=== PATIENT | male | born 1945 | race Two or more races ===

== ENCOUNTER 2016-10-01 16:35 | Observation (INO) | payer MEDICARE, OTHER ==
[~2016-10-01] VITALS: Ht 175.3 cm; Wt 72.6 kg
[~2016-10-01 16:35] MED LIST: ALBUAER3 IN; ASP81EC PO; CAR3125T PO; FLUT1SPR5; FURO40TA PO; INSLISPI SC; Insulin Detemir SC; LACT10SO3 PO; LEVO500T21 PO; MUPI2OIN10 TOP; POTA20TA53 PO
[2016-10-01 18:29] LABS: Basophils # (auto) 0.1 uL; Basophils % (auto) 0.5 % (0.0-2.0); CONDITION Y; DEFINITIVE SEE PRINTOUT; Eosinophils # (auto) 0.1 uL; Eosinophils % (auto) 0.6 % (0.0-7.0); Hematocrit 24.7 % (41.0-53.0); Hemoglobin 8.4 g/dL (13.5-17.5); Lymphocytes # (auto) 0.9 uL; Lymphocytes % (auto) 6.5 % (10.0-50.0); Mean Corpuscular Hemoglobin 29.2 pg (28.0-32.0); Mean Corpuscular Hgb Conc. 33.9 g/dL (32.0-36.0); Mean Corpuscular Volume 86.2 fL (80.0-100.0); Mean Platelet Volume 7.4 fL (7.4-10.4); Monocytes # (auto) 0.5 uL; Monocytes % (auto) 3.9 % (0.0-12.0); Neutrophils # (auto) 12.4 uL; Neutrophils % (auto) 88.5 % (37.0-80.0); Platelet Count (auto) 320 10^3/uL (140-450); Red Cell Distribution Width 15.5 % (11.6-16.0)
[2016-10-01 18:37] LABS: INR 1.13 (0.9-1.15); Partial Thromboplastin Time 33.1 sec (22.64-33.71); Prothrombin Time 12.3 sec (9.37-12.3)
[2016-10-01 18:43] LABS: B-Type Natriuretic Peptide 1743.19 pg/mL (0-100)
[2016-10-01] MEDS ORDERED: cefTRIAXone 1GM/50ML D5W 50 ML IV ONE (19:00)
[2016-10-01 20:28] LABS: Albumin 1.6 g/dL (3.4-5.0); Alkaline Phosphatase 118 U/L (45-117); Anion Gap 6 (5-15); Aspartate Aminotransferase 8 U/L (15-37); BUN/Creatinine Ratio 26.9; Bilirubin, Total 0.2 mg/dL (0.2-1.0); Blood Urea Nitrogen 52 mg/dL (7-18); Calcium 7.5 mg/dL (8.5-10.1); Carbon Dioxide 27 mmol/L (21-32); Chloride 107 mmol/L (98-107); GFR African American 44 mL/min; GFR Non-African American 37 mL/min; Glucose 124 mg/dL (74-106); Potassium 5.2 mmol/L (3.5-5.1); Sodium 140 mmol/L (136-145); Total Protein 5.8 g/dL (6.4-8.2)
[2016-10-01] MEDS ORDERED: LEVOFLOXACIN 250 MG TAB PO ONE (21:45)
[2016-10-01 21:55] VITALS: BP 156/88
== END 2016-10-01 21:56 | disposition left against medical advice (07) | DRG 291 ==
LOC: EDBD 16:35 → EDUNIT# 16:35 → ER 16:41 → OVERFLOW 17:53 → ER 21:56
PROVIDERS: ADMIT Family Medicine; ATTEND Family Medicine
DX: I11.0 Hypertensive heart disease with heart failure (principal); J18.9 Pneumonia, unspecified organism; I50.43 Acute on chronic combined systolic (congestive) and diastolic (congestive) heart failure; D64.9 Anemia, unspecified; J45.909 Unspecified asthma, uncomplicated; I25.10 Atherosclerotic heart disease of native coronary artery without angina pectoris; E11.9 Type 2 diabetes mellitus without complications; I25.2 Old myocardial infarction; Z86.73 Personal history of transient ischemic attack (TIA), and cerebral infarction without residual deficits; Z82.49 Family history of ischemic heart disease and other diseases of the circulatory system
CPT/HCPCS: 36415; 71020; 80053; 83605; 83735; 83880; 84443; 84484; 85025; 85610; 85730; 87040; 93005; 99285; G0378

== ENCOUNTER 2016-10-26 11:37 | Inpatient (IN) | payer MEDICARE ==
[~2016-10-26] VITALS: Ht 177.8 cm; Wt 67.5 kg
[~2016-10-26 11:37] MED LIST changes: -LEVO500T21 PO; -MUPI2OIN10 TOP
[2016-10-26 12:25] LABS: Basophils # (auto) 0 uL; Basophils % (auto) 0.3 % (0.0-2.0); CONDITION Y; Eosinophils # (auto) 0.1 uL; Eosinophils % (auto) 1.8 % (0.0-7.0); Hemoglobin 8.9 g/dL (13.5-17.5); Lymphocytes # (auto) 1.2 uL; Lymphocytes % (auto) 20.6 % (10.0-50.0); Mean Corpuscular Hgb Conc. 32.9 g/dL (32.0-36.0); Mean Corpuscular Volume 88.1 fL (80.0-100.0); Mean Platelet Volume 8.2 fL (7.4-10.4); Monocytes # (auto) 0.3 uL; Monocytes % (auto) 5.6 % (0.0-12.0); Neutrophils # (auto) 4.1 uL; Neutrophils % (auto) 71.7 % (37.0-80.0); Platelet Count (auto) 163 10^3/uL (140-450); Red Cell Distribution Width 16.4 % (11.6-16.0); White Blood Cell 5.7 10^3/uL (4.4-10.8)
[2016-10-26 12:49] LABS: Albumin 2.1 g/dL (3.4-5.0); BUN/Creatinine Ratio 30.5; Bilirubin, Total 0.3 mg/dL (0.2-1.0); Calcium 7.9 mg/dL (8.5-10.1); Magnesium 2.9 mg/dL (1.6-2.6); Total Protein 6.4 g/dL (6.4-8.2)
[2016-10-26 12:56] LABS: Potassium 5.6 mmol/L (3.5-5.1)
[2016-10-26] MEDS ORDERED: cefTRIAXone 1GM/50ML D5W 50 ML IV ONE (13:00)
[2016-10-26 13:07] LABS: B-Type Natriuretic Peptide 3026.51 pg/mL (0-100)
[2016-10-26 13:33] LABS: Temperature: 22.7 C (20.0-25.0)
[2016-10-26] MEDS ORDERED: LACTULOSE 20Gm/30ML SOLN PO PRN (14:00)
[2016-10-26] MEDS ORDERED: DEXTROSE (50%) 50ML SYRG IV PRN (14:00)
[2016-10-26 14:06] LABS: INR 1.27 (0.9-1.15); Partial Thromboplastin Time 33.5 sec (22.64-33.71); Prothrombin Time 13.9 sec (9.37-12.3)
[2016-10-26] MEDS ORDERED: ONDANSETRON HCL 4 MG/2 ML VIAL IV PRN (14:15)
[2016-10-26] MEDS ORDERED: cloNIDine HCL 0.1 MG TAB PO PRN (14:15)
[2016-10-26] MEDS ORDERED: NITROGLYCERIN 0.4 MG SL TAB SL PRN (14:15)
[2016-10-26] MEDS ORDERED: MORPHINE SULF INJ 2 MG/ML SYRINGE 1ML IV PRN (14:15)
[2016-10-26] MEDS ORDERED: DOCUSATE SOD 100 MG CAP PO PRN (14:15)
[2016-10-26] MEDS ORDERED: CALCIUM GLUC 4.65meq/50ml D5AE 50 ML IV ONE (14:30)
[2016-10-26] MEDS ORDERED: DEXTROSE (50%) 50ML SYRG IV ONE (14:30)
[2016-10-26] MEDS ORDERED: SODIUM BICARBONATE 8.4 % INJ 50ML VIAL IV ONE (14:30)
[2016-10-26] MEDS ORDERED: InsuLIN REG 1unit/0.01ml Soln (100units/ml) IV ONE (14:30)
[2016-10-26] MEDS ORDERED: SODIUM POLYSTYRENE SULF 15GM/60ML SUSP PO ONE (14:30)
[2016-10-26] MEDS ORDERED: SODIUM BICARBONATE 8.4% INJ 50ML SYRINGE ONE (14:32)
[2016-10-26] MEDS: hydrALAZINE HCL 25 MG TAB PO SCH ×2 (14:48→22:13)
[2016-10-26] MEDS: METOPROLOL TARTRATE 25 MG TAB PO SCH ×2 (14:49→22:14)
[2016-10-26] MEDS: ISOSORBIDE MONONITRATE 20 MG TAB PO SCH ×2 (14:49→22:13)
[2016-10-26] MEDS: InsuLIN REG 1unit/0.01ml Soln (100units/ml) SC SCH ×3 (17:00→22:25)
[2016-10-26] MEDS: ACCU-CHEK COMFORT CURVE STRIP VI SCH ×2 (17:05→22:17)
[2016-10-26] MEDS ORDERED: BOOST PLUS 8 ounce PO SCH (18:00)
[2016-10-26] MEDS: CALCIUM W/VIT D (600MG/400IU) TAB PO SCH (18:19)
[2016-10-26] MEDS: FERROUS SULFATE 325 MG TAB PO SCH (18:19)
[2016-10-26] MEDS: Boost Glucose Control 8 Ounces PO SCH ×2 (18:52→22:00)
[2016-10-26] MEDS: ACETAMINOPHEN 325 MG TAB PO PRN (18:54)
[2016-10-26] MEDS: ALBUTEROL SULF 2.5 MG/0.5ML(0.5%) NEB SOLN NEB SCH (19:21)
[2016-10-26] MEDS: IPRATROPIUM BROM 0.5 MG/2.5ML INH SOL NEB SCH (19:21)
[2016-10-26 19:28] LABS: BUN/Creatinine Ratio 28.6; Calcium 7.5 mg/dL (8.5-10.1); Potassium 5.2 mmol/L (3.5-5.1)
[2016-10-26 20:27] VITALS: BP 172/74
[2016-10-26] MEDS: MORPHINE SULF INJ 2 MG/ML SYRINGE 1ML IV PRN ×2 (21:06→23:31)
[2016-10-26] MEDS: SODIUM CHLOR 0.9% PF (SALINE LOCK) 10ML VIAL IV SCH (22:07)
[2016-10-26] MEDS: ATORVASTATIN 20 MG TAB PO SCH (22:13)
[2016-10-26] MEDS: FAMOTIDINE 20 MG TAB PO SCH (22:14)
[2016-10-26] MEDS: ASCORBIC ACID 500 MG TAB PO SCH (22:14)
[2016-10-26 23:00] VITALS: BP 136/75
[2016-10-26] MEDS: TEMAZEPAM 15 MG CAP PO PRN (23:31)
[2016-10-27 05:00] VITALS: BP 133/70
[2016-10-27] MEDS: ALBUTEROL SULF 2.5 MG/0.5ML(0.5%) NEB SOLN NEB SCH ×5 (05:58→18:22)
[2016-10-27] MEDS: IPRATROPIUM BROM 0.5 MG/2.5ML INH SOL NEB SCH ×5 (05:58→18:22)
[2016-10-27] MEDS: Boost Glucose Control 8 Ounces PO SCH ×4 (06:13→22:00)
[2016-10-27] MEDS: SODIUM CHLOR 0.9% PF (SALINE LOCK) 10ML VIAL IV SCH ×3 (06:13→22:00)
[2016-10-27 06:24] LABS: Basophils # (auto) 0 uL; Basophils % (auto) 0.9 % (0.0-2.0); CONDITION Y; DEFINITIVE SEE PRINTOUT; Eosinophils # (auto) 0.1 uL; Eosinophils % (auto) 1.6 % (0.0-7.0); Hematocrit 25.5 % (41.0-53.0); Hemoglobin 8.4 g/dL (13.5-17.5); Lymphocytes # (auto) 1.3 uL; Lymphocytes % (auto) 24.5 % (10.0-50.0); Mean Corpuscular Hemoglobin 29.4 pg (28.0-32.0); Mean Platelet Volume 8.6 fL (7.4-10.4); Monocytes # (auto) 0.3 uL; Monocytes % (auto) 5.8 % (0.0-12.0); Neutrophils # (auto) 3.5 uL; Neutrophils % (auto) 67.2 % (37.0-80.0); Platelet Count (auto) 159 10^3/uL (140-450); Red Cell Distribution Width 16.2 % (11.6-16.0); White Blood Cell 5.2 10^3/uL (4.4-10.8)
[2016-10-27 06:41] LABS: Albumin 2.1 g/dL (3.4-5.0); Bilirubin, Total 0.4 mg/dL (0.2-1.0); Calcium 7.9 mg/dL (8.5-10.1); Potassium 5.2 mmol/L (3.5-5.1); Total Protein 6.2 g/dL (6.4-8.2)
[2016-10-27] MEDS: InsuLIN REG 1unit/0.01ml Soln (100units/ml) SC SCH ×4 (06:58→23:43)
[2016-10-27] MEDS: ACCU-CHEK COMFORT CURVE STRIP VI SCH ×4 (06:59→22:00)
[2016-10-27] MEDS: CALCIUM W/VIT D (600MG/400IU) TAB PO SCH ×2 (08:05→17:48)
[2016-10-27] MEDS: FERROUS SULFATE 325 MG TAB PO SCH ×2 (08:05→17:48)
[2016-10-27 09:00] VITALS: BP 140/77
[2016-10-27] MEDS: cefTRIAXone 1GM/50ML D5W 50 ML IV SCH (09:46)
[2016-10-27] MEDS: ISOSORBIDE MONONITRATE 20 MG TAB PO SCH ×3 (09:47→23:30)
[2016-10-27] MEDS: ZINC SULFATE 220 MG CAP PO SCH ×2 (09:48→10:00)
[2016-10-27] MEDS: hydrALAZINE HCL 25 MG TAB PO SCH ×3 (09:48→23:29)
[2016-10-27] MEDS: METOPROLOL TARTRATE 25 MG TAB PO SCH ×2 (09:49→23:32)
[2016-10-27] MEDS: ASPirin-EC 81 mg tab PO SCH ×2 (09:50→10:00)
[2016-10-27] MEDS: FAMOTIDINE 20 MG TAB PO SCH ×3 (09:51→23:32)
[2016-10-27] MEDS: MULTIPLE VITAMIN TAB PO SCH ×2 (09:51→10:00)
[2016-10-27] MEDS: ASCORBIC ACID 500 MG TAB PO SCH ×3 (09:52→23:28)
[2016-10-27] MEDS: SODIUM POLYSTYRENE SULF 15GM/60ML SUSP PO ONE ×2 (09:59→11:41)
[2016-10-27 13:00] VITALS: BP 131/79
[2016-10-27 17:00] VITALS: BP 134/80
[2016-10-27 20:00] VITALS: BP 121/69
[2016-10-27 22:00] VITALS: BP 121/69
[2016-10-27] MEDS: ATORVASTATIN 20 MG TAB PO SCH (23:32)
[2016-10-28] MEDS: TEMAZEPAM 15 MG CAP PO PRN (00:20)
[2016-10-28] MEDS: ALBUTEROL SULF 2.5 MG/0.5ML(0.5%) NEB SOLN NEB SCH ×4 (00:43→19:17)
[2016-10-28] MEDS: IPRATROPIUM BROM 0.5 MG/2.5ML INH SOL NEB SCH ×4 (00:44→19:17)
[2016-10-28] MEDS: HYDROcodone-ACET 5/325MG TAB PO PRN (01:40)
[2016-10-28 04:43] VITALS: BP 121/65
[2016-10-28] MEDS: Boost Glucose Control 8 Ounces PO SCH ×4 (06:00→22:00)
[2016-10-28] MEDS: SODIUM CHLOR 0.9% PF (SALINE LOCK) 10ML VIAL IV SCH ×3 (06:00→22:00)
[2016-10-28] MEDS: ACCU-CHEK COMFORT CURVE STRIP VI SCH ×4 (06:09→22:00)
[2016-10-28] MEDS: InsuLIN REG 1unit/0.01ml Soln (100units/ml) SC SCH ×5 (06:14→22:00)
[2016-10-28 08:00] VITALS: BP 125/68
[2016-10-28 10:52] LABS: Basophils # (auto) 0 uL; Basophils % (auto) 0.4 % (0.0-2.0); CONDITION Y; DEFINITIVE SEE PRINTOUT; Eosinophils # (auto) 0.1 uL; Eosinophils % (auto) 2.2 % (0.0-7.0); Hematocrit 23.4 % (41.0-53.0); Hemoglobin 7.7 g/dL (13.5-17.5); Lymphocytes # (auto) 0.9 uL; Lymphocytes % (auto) 22.9 % (10.0-50.0); Mean Corpuscular Hemoglobin 29.3 pg (28.0-32.0); Mean Corpuscular Hgb Conc. 32.8 g/dL (32.0-36.0); Mean Corpuscular Volume 89.5 fL (80.0-100.0); Mean Platelet Volume 8.1 fL (7.4-10.4); Monocytes # (auto) 0.3 uL; Monocytes % (auto) 7.6 % (0.0-12.0); Neutrophils # (auto) 2.6 uL; Neutrophils % (auto) 66.9 % (37.0-80.0); Platelet Count (auto) 133 10^3/uL (140-450); Red Cell Distribution Width 16.7 % (11.6-16.0); White Blood Cell 3.9 10^3/uL (4.4-10.8)
[2016-10-28] MEDS: FAMOTIDINE 20 MG TAB PO SCH ×3 (10:53→22:45)
[2016-10-28] MEDS: ZINC SULFATE 220 MG CAP PO SCH (10:53)
[2016-10-28] MEDS: ASPirin-EC 81 mg tab PO SCH ×2 (10:53→11:06)
[2016-10-28] MEDS: MULTIPLE VITAMIN TAB PO SCH (10:53)
[2016-10-28] MEDS: ASCORBIC ACID 500 MG TAB PO SCH ×3 (10:53→22:45)
[2016-10-28] MEDS: ISOSORBIDE MONONITRATE 20 MG TAB PO SCH ×2 (10:54→22:00)
[2016-10-28] MEDS: METOPROLOL TARTRATE 25 MG TAB PO SCH ×2 (10:54→22:00)
[2016-10-28] MEDS: FERROUS SULFATE 325 MG TAB PO SCH ×2 (10:55→18:11)
[2016-10-28] MEDS: CALCIUM W/VIT D (600MG/400IU) TAB PO SCH ×2 (10:55→18:12)
[2016-10-28 11:06] LABS: BUN/Creatinine Ratio 31.6; Bilirubin, Total 0.2 mg/dL (0.2-1.0); Calcium 7.8 mg/dL (8.5-10.1); Potassium 4.4 mmol/L (3.5-5.1); Total Protein 5.8 g/dL (6.4-8.2)
[2016-10-28] MEDS: hydrALAZINE HCL 25 MG TAB PO SCH ×2 (11:07→22:00)
[2016-10-28 12:01] VITALS: BP 131/69
[2016-10-28] MEDS: cefTRIAXone 1GM/50ML D5W 50 ML IV SCH (12:07)
[2016-10-28 16:52] VITALS: BP 121/62
[2016-10-28] MEDS: FUROSEMIDE 100 MG/10ML VIAL IV SCH (18:13)
[2016-10-28 21:54] LABS: Urine Bilirubin Negative (Negative); Urine Blood 2+ /uL (Negative); Urine Color Yellow (Yellow); Urine Glucose Normal (Normal); Urine Ketone Negative (Negative); Urine Mucus FEW (None Seen); Urine Nitrite Negative (Negative); Urine RBC 239 /hpf (0 - 3); Urine Urobilinogen Normal (Negative); Urine WBC Clumps PRESENT /hpf (None Seen); Urine pH 5.5 (5.0-8.0)
[2016-10-28 22:00] VITALS: BP 109/57
[2016-10-28] MEDS: ATORVASTATIN 20 MG TAB PO SCH ×2 (22:00→22:45)
[2016-10-29] VITALS (7 sets, daily range): BP systolic 116–132; BP diastolic 58–69
[2016-10-29] MEDS: IPRATROPIUM BROM 0.5 MG/2.5ML INH SOL NEB SCH ×4 (00:36→18:06)
[2016-10-29] MEDS: ALBUTEROL SULF 2.5 MG/0.5ML(0.5%) NEB SOLN NEB SCH ×2 (00:36→06:35)
[2016-10-29] MEDS: FUROSEMIDE 100 MG/10ML VIAL IV SCH ×2 (06:16→18:00)
[2016-10-29] MEDS: SODIUM CHLOR 0.9% PF (SALINE LOCK) 10ML VIAL IV SCH ×3 (06:16→21:55)
[2016-10-29] MEDS: Boost Glucose Control 8 Ounces PO SCH ×4 (06:16→21:55)
[2016-10-29] MEDS: ACCU-CHEK COMFORT CURVE STRIP VI SCH ×4 (06:44→21:55)
[2016-10-29] MEDS: InsuLIN REG 1unit/0.01ml Soln (100units/ml) SC SCH ×4 (06:44→21:56)
[2016-10-29 07:11] LABS: BUN/Creatinine Ratio 30.3; Calcium 7.8 mg/dL (8.5-10.1); Potassium 4.5 mmol/L (3.5-5.1)
[2016-10-29] MEDS: CALCIUM W/VIT D (600MG/400IU) TAB PO SCH ×2 (08:00→17:58)
[2016-10-29] MEDS: FERROUS SULFATE 325 MG TAB PO SCH ×2 (08:00→17:59)
[2016-10-29] MEDS: MORPHINE SULF INJ 2 MG/ML SYRINGE 1ML IV PRN (08:00)
[2016-10-29] MEDS: ASCORBIC ACID 500 MG TAB PO SCH ×2 (09:51→21:59)
[2016-10-29] MEDS: ISOSORBIDE MONONITRATE 20 MG TAB PO SCH ×2 (09:51→21:58)
[2016-10-29] MEDS: ASPirin-EC 81 mg tab PO SCH (09:51)
[2016-10-29] MEDS: METOPROLOL TARTRATE 25 MG TAB PO SCH (09:52)
[2016-10-29] MEDS: ZINC SULFATE 220 MG CAP PO SCH (09:52)
[2016-10-29] MEDS: FAMOTIDINE 20 MG TAB PO SCH ×2 (09:52→21:59)
[2016-10-29] MEDS: hydrALAZINE HCL 25 MG TAB PO SCH (09:53)
[2016-10-29] MEDS: MULTIPLE VITAMIN TAB PO SCH (09:53)
[2016-10-29] MEDS: HYDROcodone-ACET 5/325MG TAB PO PRN ×2 (09:53→17:59)
[2016-10-29] MEDS: CARVEDILOL 3.125 MG TAB PO SCH ×2 (11:25→21:59)
[2016-10-29] MEDS: ATORVASTATIN 20 MG TAB PO SCH (21:59)
[2016-10-30] MEDS: IPRATROPIUM BROM 0.5 MG/2.5ML INH SOL NEB SCH ×4 (00:39→19:39)
[2016-10-30 05:00] VITALS: BP 125/73
[2016-10-30] MEDS: FUROSEMIDE 100 MG/10ML VIAL IV SCH ×2 (05:36→17:40)
[2016-10-30] MEDS: SODIUM CHLOR 0.9% PF (SALINE LOCK) 10ML VIAL IV SCH ×3 (05:36→21:37)
[2016-10-30] MEDS: Boost Glucose Control 8 Ounces PO SCH ×4 (05:37→21:37)
[2016-10-30] MEDS: HYDROcodone-ACET 5/325MG TAB PO PRN ×2 (05:42→10:48)
[2016-10-30] MEDS: ACCU-CHEK COMFORT CURVE STRIP VI SCH ×4 (06:35→21:48)
[2016-10-30] MEDS: InsuLIN REG 1unit/0.01ml Soln (100units/ml) SC SCH ×4 (06:36→21:48)
[2016-10-30 06:47] LABS: Calcium 7.6 mg/dL (8.5-10.1); Potassium 4.4 mmol/L (3.5-5.1)
[2016-10-30 06:50] LABS: BUN/Creatinine Ratio 29.8
[2016-10-30 08:00] VITALS: BP 122/67
[2016-10-30] MEDS: FERROUS SULFATE 325 MG TAB PO SCH ×2 (08:43→17:40)
[2016-10-30] MEDS: CALCIUM W/VIT D (600MG/400IU) TAB PO SCH ×2 (08:43→17:40)
[2016-10-30] MEDS: MORPHINE SULF INJ 2 MG/ML SYRINGE 1ML IV PRN (08:44)
[2016-10-30 09:00] VITALS: BP 122/67
[2016-10-30] MEDS: MULTIPLE VITAMIN TAB PO SCH ×2 (10:00→10:48)
[2016-10-30] MEDS: ISOSORBIDE MONONITRATE 20 MG TAB PO SCH ×2 (10:48→21:48)
[2016-10-30] MEDS: ASPirin-EC 81 mg tab PO SCH (10:49)
[2016-10-30] MEDS: FAMOTIDINE 20 MG TAB PO SCH ×2 (10:49→21:48)
[2016-10-30] MEDS: ZINC SULFATE 220 MG CAP PO SCH (10:49)
[2016-10-30] MEDS: ASCORBIC ACID 500 MG TAB PO SCH ×2 (10:49→21:48)
[2016-10-30] MEDS: CARVEDILOL 3.125 MG TAB PO SCH ×2 (10:50→21:47)
[2016-10-30 13:00] VITALS: BP 109/60
[2016-10-30] MEDS: ACETAMINOPHEN 325 MG TAB PO PRN (13:50)
[2016-10-30 17:00] VITALS: BP 102/57
[2016-10-30] MEDS: METOLAZONE 5 MG TAB PO SCH (17:39)
[2016-10-30] MEDS: ATORVASTATIN 20 MG TAB PO SCH (21:48)
[2016-10-30 22:00] VITALS: BP 119/66
[2016-10-31] MEDS: IPRATROPIUM BROM 0.5 MG/2.5ML INH SOL NEB SCH ×4 (01:02→19:18)
[2016-10-31 05:00] VITALS: BP 116/77
[2016-10-31] MEDS: SODIUM CHLOR 0.9% PF (SALINE LOCK) 10ML VIAL IV SCH ×2 (05:42→14:12)
[2016-10-31] MEDS: FUROSEMIDE 100 MG/10ML VIAL IV SCH ×2 (05:42→18:03)
[2016-10-31] MEDS: Boost Glucose Control 8 Ounces PO SCH ×3 (06:00→18:03)
[2016-10-31] MEDS: ACCU-CHEK COMFORT CURVE STRIP VI SCH ×4 (06:19→22:00)
[2016-10-31] MEDS: InsuLIN REG 1unit/0.01ml Soln (100units/ml) SC SCH ×4 (06:20→22:00)
[2016-10-31 07:23] LABS: Albumin 2.2 g/dL (3.4-5.0); Calcium 7.8 mg/dL (8.5-10.1); Potassium 4.3 mmol/L (3.5-5.1)
[2016-10-31 07:25] LABS: BUN/Creatinine Ratio 30.8
[2016-10-31 07:27] LABS: Basophils # (auto) 0 uL; Basophils % (auto) 0.5 % (0.0-2.0); CONDITION Y; DEFINITIVE SEE PRINTOUT; Eosinophils # (auto) 0.2 uL; Eosinophils % (auto) 4.4 % (0.0-7.0); Hematocrit 25.2 % (41.0-53.0); Hemoglobin 8.4 g/dL (13.5-17.5); Lymphocytes % (auto) 24.8 % (10.0-50.0); Mean Corpuscular Hemoglobin 29.4 pg (28.0-32.0); Mean Corpuscular Hgb Conc. 33.2 g/dL (32.0-36.0); Mean Corpuscular Volume 88.5 fL (80.0-100.0); Mean Platelet Volume 8.9 fL (7.4-10.4); Monocytes # (auto) 0.2 uL; Neutrophils # (auto) 2.6 uL; Neutrophils % (auto) 64.3 % (37.0-80.0); Platelet Count (auto) 137 10^3/uL (140-450); Red Cell Distribution Width 16.9 % (11.6-16.0); White Blood Cell 4.1 10^3/uL (4.4-10.8)
[2016-10-31 07:30] LABS: Bilirubin, Total 0.3 mg/dL (0.2-1.0); Total Protein 6.4 g/dL (6.4-8.2)
[2016-10-31 08:00] VITALS: BP 134/79
[2016-10-31] MEDS: CALCIUM W/VIT D (600MG/400IU) TAB PO SCH ×3 (08:00→18:03)
[2016-10-31 09:00] VITALS: BP 134/79
[2016-10-31] MEDS: ZINC SULFATE 220 MG CAP PO SCH ×2 (09:26→10:00)
[2016-10-31] MEDS: ISOSORBIDE MONONITRATE 20 MG TAB PO SCH ×2 (09:28→22:00)
[2016-10-31] MEDS: FERROUS SULFATE 325 MG TAB PO SCH ×2 (09:29→18:03)
[2016-10-31] MEDS: CARVEDILOL 3.125 MG TAB PO SCH ×3 (09:29→22:00)
[2016-10-31] MEDS: ASPirin-EC 81 mg tab PO SCH ×2 (09:29→10:00)
[2016-10-31] MEDS: HYDROcodone-ACET 5/325MG TAB PO PRN (09:30)
[2016-10-31] MEDS: ASCORBIC ACID 500 MG TAB PO SCH ×3 (09:30→22:00)
[2016-10-31] MEDS: METOLAZONE 5 MG TAB PO SCH ×2 (09:30→10:00)
[2016-10-31] MEDS: FLUCONAZOLE 100 MG TAB PO SCH (10:00)
[2016-10-31] MEDS: MULTIPLE VITAMIN TAB PO SCH (10:00)
[2016-10-31] MEDS: FAMOTIDINE 20 MG TAB PO SCH ×2 (10:00→22:00)
[2016-10-31 13:00] VITALS: BP 118/63
[2016-10-31 17:00] VITALS: BP 133/69
[2016-10-31] MEDS: MORPHINE SULF INJ 2 MG/ML SYRINGE 1ML IV PRN (20:31)
[2016-10-31 22:00] VITALS: BP 143/73
[2016-10-31] MEDS: ATORVASTATIN 20 MG TAB PO SCH (22:00)
[2016-11-01] MEDS: IPRATROPIUM BROM 0.5 MG/2.5ML INH SOL NEB SCH ×3 (00:43→19:33)
[2016-11-01] MEDS: SODIUM CHLOR 0.9% PF (SALINE LOCK) 10ML VIAL IV SCH ×4 (03:19→23:22)
[2016-11-01] MEDS: Boost Glucose Control 8 Ounces PO SCH ×5 (03:19→23:22)
[2016-11-01 05:00] VITALS: BP 140/73
[2016-11-01 06:42] LABS: Basophils # (auto) 0 uL; Basophils % (auto) 0.7 % (0.0-2.0); CONDITION Y; Eosinophils # (auto) 0.1 uL; Eosinophils % (auto) 1.5 % (0.0-7.0); Hematocrit 27.9 % (41.0-53.0); Hemoglobin 9.2 g/dL (13.5-17.5); Lymphocytes # (auto) 1.3 uL; Lymphocytes % (auto) 29.8 % (10.0-50.0); Mean Corpuscular Hemoglobin 29.3 pg (28.0-32.0); Mean Corpuscular Volume 88.7 fL (80.0-100.0); Monocytes # (auto) 0.3 uL; Monocytes % (auto) 5.7 % (0.0-12.0); Neutrophils # (auto) 2.8 uL; Neutrophils % (auto) 62.3 % (37.0-80.0); Platelet Count (auto) 153 10^3/uL (140-450); Red Cell Distribution Width 16.4 % (11.6-16.0); White Blood Cell 4.5 10^3/uL (4.4-10.8)
[2016-11-01] MEDS: ACCU-CHEK COMFORT CURVE STRIP VI SCH ×4 (06:52→23:20)
[2016-11-01] MEDS: InsuLIN REG 1unit/0.01ml Soln (100units/ml) SC SCH ×4 (06:52→22:00)
[2016-11-01] MEDS: FUROSEMIDE 100 MG/10ML VIAL IV SCH ×2 (06:52→18:20)
[2016-11-01 07:12] LABS: Potassium 4.3 mmol/L (3.5-5.1)
[2016-11-01 07:28] LABS: Albumin 2.2 g/dL (3.4-5.0); BUN/Creatinine Ratio 31.1; Calcium 8.2 mg/dL (8.5-10.1)
[2016-11-01 07:31] LABS: Bilirubin, Total 0.4 mg/dL (0.2-1.0); Total Protein 6.5 g/dL (6.4-8.2)
[2016-11-01 09:00] VITALS: BP 146/64
[2016-11-01] MEDS: FERROUS SULFATE 325 MG TAB PO SCH ×2 (10:37→18:20)
[2016-11-01] MEDS: CALCIUM W/VIT D (600MG/400IU) TAB PO SCH ×2 (10:37→18:20)
[2016-11-01] MEDS: ZINC SULFATE 220 MG CAP PO SCH (10:37)
[2016-11-01] MEDS: ASPirin-EC 81 mg tab PO SCH (10:38)
[2016-11-01] MEDS: ISOSORBIDE MONONITRATE 20 MG TAB PO SCH ×2 (10:38→22:00)
[2016-11-01] MEDS: CARVEDILOL 3.125 MG TAB PO SCH ×2 (10:38→22:00)
[2016-11-01] MEDS: FLUCONAZOLE 100 MG TAB PO SCH (10:38)
[2016-11-01] MEDS: MULTIPLE VITAMIN TAB PO SCH (10:39)
[2016-11-01] MEDS: FAMOTIDINE 20 MG TAB PO SCH ×2 (10:39→22:00)
[2016-11-01] MEDS: ASCORBIC ACID 500 MG TAB PO SCH ×2 (10:39→23:08)
[2016-11-01] MEDS: METOLAZONE 5 MG TAB PO SCH (10:39)
[2016-11-01] MEDS ORDERED: FLUCONAZOLE 100 MG TAB PO ONE (11:21)
[2016-11-01 12:56] VITALS: BP 152/86
[2016-11-01 16:12] VITALS: BP 152/86
[2016-11-01 17:14] VITALS: BP 148/90
[2016-11-01 22:00] VITALS: BP 145/89
[2016-11-01] MEDS: ATORVASTATIN 20 MG TAB PO SCH (22:00)
[2016-11-02] MEDS: IPRATROPIUM BROM 0.5 MG/2.5ML INH SOL NEB SCH ×4 (00:44→18:49)
[2016-11-02 05:30] VITALS: BP 171/87
[2016-11-02 06:27] LABS: Calcium 8.2 mg/dL (8.5-10.1); Potassium 4.2 mmol/L (3.5-5.1)
[2016-11-02 06:32] LABS: BUN/Creatinine Ratio 31.4
[2016-11-02] MEDS: FUROSEMIDE 100 MG/10ML VIAL IV SCH (06:57)
[2016-11-02] MEDS: InsuLIN REG 1unit/0.01ml Soln (100units/ml) SC SCH ×4 (07:00→21:30)
[2016-11-02] MEDS: SODIUM CHLOR 0.9% PF (SALINE LOCK) 10ML VIAL IV SCH ×3 (07:02→18:01)
[2016-11-02] MEDS: ACCU-CHEK COMFORT CURVE STRIP VI SCH ×4 (07:03→21:35)
[2016-11-02] MEDS: Boost Glucose Control 8 Ounces PO SCH ×4 (07:03→21:35)
[2016-11-02] MEDS: FERROUS SULFATE 325 MG TAB PO SCH ×2 (08:42→18:00)
[2016-11-02] MEDS: CALCIUM W/VIT D (600MG/400IU) TAB PO SCH ×2 (08:42→18:00)
[2016-11-02 08:47] VITALS: BP 151/86
[2016-11-02] MEDS ORDERED: CARVEDILOL 3.125 MG TAB PO SCH (10:00)
[2016-11-02] MEDS: ASCORBIC ACID 500 MG TAB PO SCH ×2 (10:30→21:35)
[2016-11-02] MEDS: ZINC SULFATE 220 MG CAP PO SCH (10:31)
[2016-11-02] MEDS: FLUCONAZOLE 100 MG TAB PO SCH (10:31)
[2016-11-02] MEDS: ASPirin-EC 81 mg tab PO SCH (10:31)
[2016-11-02] MEDS: ISOSORBIDE MONONITRATE 20 MG TAB PO SCH ×2 (10:33→21:34)
[2016-11-02] MEDS: FAMOTIDINE 20 MG TAB PO SCH ×2 (10:33→21:33)
[2016-11-02] MEDS: MULTIPLE VITAMIN TAB PO SCH (10:33)
[2016-11-02] MEDS: METOLAZONE 5 MG TAB PO SCH (10:34)
[2016-11-02] MEDS: HYDROcodone-ACET 5/325MG TAB PO PRN (10:34)
[2016-11-02] MEDS ORDERED: FUROSEMIDE 20 MG TAB PO ONE (10:45)
[2016-11-02 12:32] VITALS: BP 141/81
[2016-11-02 16:41] VITALS: BP 148/83
[2016-11-02] MEDS: FUROSEMIDE 20 MG TAB PO SCH (18:01)
[2016-11-02] MEDS: ATORVASTATIN 20 MG TAB PO SCH (21:33)
[2016-11-02] MEDS: CARVEDILOL 12.5 MG TAB PO SCH (21:35)
[2016-11-02 22:00] VITALS: BP 141/80
[2016-11-03] MEDS: IPRATROPIUM BROM 0.5 MG/2.5ML INH SOL NEB SCH ×4 (00:36→18:07)
[2016-11-03 05:30] VITALS: BP 105/57
[2016-11-03] MEDS: FUROSEMIDE 20 MG TAB PO SCH ×2 (06:00→18:47)
[2016-11-03] MEDS: Boost Glucose Control 8 Ounces PO SCH ×4 (06:00→22:00)
[2016-11-03] MEDS: SODIUM CHLOR 0.9% PF (SALINE LOCK) 10ML VIAL IV SCH ×3 (06:00→22:00)
[2016-11-03] MEDS: ACCU-CHEK COMFORT CURVE STRIP VI SCH ×4 (06:30→22:00)
[2016-11-03] MEDS: HYDROcodone-ACET 5/325MG TAB PO PRN ×3 (06:50→18:48)
[2016-11-03 06:54] LABS: BUN/Creatinine Ratio 30.6; Calcium 7.7 mg/dL (8.5-10.1); Potassium 4.2 mmol/L (3.5-5.1)
[2016-11-03] MEDS: InsuLIN REG 1unit/0.01ml Soln (100units/ml) SC SCH ×4 (06:55→23:19)
[2016-11-03 07:55] VITALS: BP 110/70
[2016-11-03] MEDS: CALCIUM W/VIT D (600MG/400IU) TAB PO SCH ×2 (09:12→18:45)
[2016-11-03] MEDS: ASPirin-EC 81 mg tab PO SCH (09:13)
[2016-11-03] MEDS: FAMOTIDINE 20 MG TAB PO SCH ×2 (09:13→23:19)
[2016-11-03] MEDS: FERROUS SULFATE 325 MG TAB PO SCH ×2 (09:13→18:45)
[2016-11-03] MEDS: ASCORBIC ACID 500 MG TAB PO SCH ×2 (09:14→23:19)
[2016-11-03] MEDS: FLUCONAZOLE 100 MG TAB PO SCH (09:14)
[2016-11-03] MEDS: CARVEDILOL 12.5 MG TAB PO SCH ×2 (09:15→22:00)
[2016-11-03] MEDS: MULTIPLE VITAMIN TAB PO SCH (09:16)
[2016-11-03] MEDS: ISOSORBIDE MONONITRATE 20 MG TAB PO SCH ×2 (09:19→23:18)
[2016-11-03] MEDS: METOLAZONE 5 MG TAB PO SCH (09:20)
[2016-11-03] MEDS: ZINC SULFATE 220 MG CAP PO SCH (10:00)
[2016-11-03 12:24] VITALS: BP 145/80
[2016-11-03 16:57] VITALS: BP 130/60
[2016-11-03 22:00] VITALS: BP 139/81
[2016-11-03] MEDS: ATORVASTATIN 20 MG TAB PO SCH (23:18)
[2016-11-04] MEDS: IPRATROPIUM BROM 0.5 MG/2.5ML INH SOL NEB SCH ×3 (00:23→20:31)
[2016-11-04 05:30] VITALS: BP 135/73
[2016-11-04] MEDS: Boost Glucose Control 8 Ounces PO SCH ×4 (06:00→22:06)
[2016-11-04] MEDS: SODIUM CHLOR 0.9% PF (SALINE LOCK) 10ML VIAL IV SCH ×3 (06:00→22:06)
[2016-11-04] MEDS: InsuLIN REG 1unit/0.01ml Soln (100units/ml) SC SCH ×4 (07:00→22:00)
[2016-11-04] MEDS: ACCU-CHEK COMFORT CURVE STRIP VI SCH ×4 (07:19→22:10)
[2016-11-04] MEDS: FUROSEMIDE 20 MG TAB PO SCH ×2 (07:31→18:13)
[2016-11-04 08:14] VITALS: BP 135/59
[2016-11-04] MEDS: FLUCONAZOLE 100 MG TAB PO SCH (09:19)
[2016-11-04] MEDS: ISOSORBIDE MONONITRATE 20 MG TAB PO SCH ×2 (09:20→22:06)
[2016-11-04] MEDS: ZINC SULFATE 220 MG CAP PO SCH (09:20)
[2016-11-04] MEDS: ASPirin-EC 81 mg tab PO SCH (09:21)
[2016-11-04] MEDS: FAMOTIDINE 20 MG TAB PO SCH ×2 (09:21→22:05)
[2016-11-04] MEDS: ASCORBIC ACID 500 MG TAB PO SCH ×2 (09:21→22:05)
[2016-11-04] MEDS: CARVEDILOL 12.5 MG TAB PO SCH ×2 (09:21→22:06)
[2016-11-04] MEDS: METOLAZONE 5 MG TAB PO SCH (09:22)
[2016-11-04] MEDS: MULTIPLE VITAMIN TAB PO SCH (09:22)
[2016-11-04] MEDS: FERROUS SULFATE 325 MG TAB PO SCH ×2 (09:28→18:13)
[2016-11-04] MEDS: CALCIUM W/VIT D (600MG/400IU) TAB PO SCH ×2 (09:29→18:13)
[2016-11-04 12:30] VITALS: BP 146/77
[2016-11-04 15:54] VITALS: BP 146/77
[2016-11-04 16:33] VITALS: BP 134/76
[2016-11-04 22:00] VITALS: BP 151/80
[2016-11-04] MEDS: ATORVASTATIN 20 MG TAB PO SCH (22:05)
[2016-11-05] MEDS: IPRATROPIUM BROM 0.5 MG/2.5ML INH SOL NEB SCH ×4 (00:20→20:00)
[2016-11-05 05:30] VITALS: BP 125/80
[2016-11-05] MEDS: Boost Glucose Control 8 Ounces PO SCH ×4 (06:00→22:05)
[2016-11-05 06:02] LABS: Basophils # (auto) 0 uL; Basophils % (auto) 0.9 % (0.0-2.0); Eosinophils # (auto) 0.2 uL; Eosinophils % (auto) 4.1 % (0.0-7.0); Hematocrit 24.9 % (41.0-53.0); Hemoglobin 8.3 g/dL (13.5-17.5); Lymphocytes % (auto) 25.5 % (10.0-50.0); Mean Corpuscular Hemoglobin 29.6 pg (28.0-32.0); Mean Corpuscular Hgb Conc. 33.4 g/dL (32.0-36.0); Mean Corpuscular Volume 88.7 fL (80.0-100.0); Mean Platelet Volume 8.6 fL (7.4-10.4); Monocytes # (auto) 0.3 uL; Neutrophils # (auto) 2.3 uL; Neutrophils % (auto) 60.5 % (37.0-80.0); Platelet Count (auto) 88 10^3/uL (140-450); Red Cell Distribution Width 16.9 % (11.6-16.0); White Blood Cell 3.9 10^3/uL (4.4-10.8)
[2016-11-05 06:24] LABS: BUN/Creatinine Ratio 29.7; Bilirubin, Total 0.3 mg/dL (0.2-1.0); Calcium 7.8 mg/dL (8.5-10.1); Potassium 3.8 mmol/L (3.5-5.1); Total Protein 6.2 g/dL (6.4-8.2)
[2016-11-05] MEDS: FUROSEMIDE 20 MG TAB PO SCH ×2 (06:33→18:03)
[2016-11-05] MEDS: SODIUM CHLOR 0.9% PF (SALINE LOCK) 10ML VIAL IV SCH ×3 (06:34→21:57)
[2016-11-05] MEDS: ACCU-CHEK COMFORT CURVE STRIP VI SCH ×4 (06:45→21:58)
[2016-11-05] MEDS: InsuLIN REG 1unit/0.01ml Soln (100units/ml) SC SCH ×4 (06:46→21:59)
[2016-11-05] MEDS: FERROUS SULFATE 325 MG TAB PO SCH ×2 (08:32→18:03)
[2016-11-05] MEDS: CALCIUM W/VIT D (600MG/400IU) TAB PO SCH ×2 (08:32→18:02)
[2016-11-05 09:00] VITALS: BP 131/65
[2016-11-05] MEDS: CARVEDILOL 12.5 MG TAB PO SCH ×2 (10:00→22:00)
[2016-11-05] MEDS: ZINC SULFATE 220 MG CAP PO SCH (10:40)
[2016-11-05] MEDS: ASPirin-EC 81 mg tab PO SCH (10:40)
[2016-11-05] MEDS: ISOSORBIDE MONONITRATE 20 MG TAB PO SCH ×2 (10:40→21:59)
[2016-11-05] MEDS: MULTIPLE VITAMIN TAB PO SCH (10:41)
[2016-11-05] MEDS: FLUCONAZOLE 100 MG TAB PO SCH (10:41)
[2016-11-05] MEDS: ASCORBIC ACID 500 MG TAB PO SCH ×2 (10:42→21:58)
[2016-11-05] MEDS: FAMOTIDINE 20 MG TAB PO SCH ×2 (10:43→21:58)
[2016-11-05 12:59] VITALS: BP 137/76
[2016-11-05 17:09] VITALS: BP 137/76
[2016-11-05 21:25] VITALS: BP 149/82
[2016-11-05] MEDS: ATORVASTATIN 20 MG TAB PO SCH (21:58)
[2016-11-06] MEDS: IPRATROPIUM BROM 0.5 MG/2.5ML INH SOL NEB SCH ×4 (01:15→18:04)
[2016-11-06 05:30] VITALS: BP 121/56
[2016-11-06] MEDS: Boost Glucose Control 8 Ounces PO SCH ×4 (06:00→22:38)
[2016-11-06] MEDS: SODIUM CHLOR 0.9% PF (SALINE LOCK) 10ML VIAL IV SCH ×3 (06:12→22:40)
[2016-11-06] MEDS: FUROSEMIDE 20 MG TAB PO SCH ×2 (06:13→18:34)
[2016-11-06] MEDS: ACCU-CHEK COMFORT CURVE STRIP VI SCH ×4 (06:34→22:42)
[2016-11-06] MEDS: InsuLIN REG 1unit/0.01ml Soln (100units/ml) SC SCH ×4 (06:34→22:38)
[2016-11-06 08:00] VITALS: BP 110/59
[2016-11-06] MEDS: FAMOTIDINE 20 MG TAB PO SCH ×2 (09:04→22:42)
[2016-11-06] MEDS: MULTIPLE VITAMIN TAB PO SCH (09:04)
[2016-11-06] MEDS: FERROUS SULFATE 325 MG TAB PO SCH ×2 (09:04→18:33)
[2016-11-06] MEDS: ASPirin-EC 81 mg tab PO SCH (09:04)
[2016-11-06] MEDS: ASCORBIC ACID 500 MG TAB PO SCH ×2 (09:04→22:42)
[2016-11-06] MEDS: ZINC SULFATE 220 MG CAP PO SCH (09:04)
[2016-11-06] MEDS: CALCIUM W/VIT D (600MG/400IU) TAB PO SCH ×2 (09:04→18:34)
[2016-11-06] MEDS: FLUCONAZOLE 100 MG TAB PO SCH (09:05)
[2016-11-06] MEDS: CARVEDILOL 12.5 MG TAB PO SCH ×2 (10:00→22:41)
[2016-11-06] MEDS: ISOSORBIDE MONONITRATE 20 MG TAB PO SCH ×2 (10:00→22:41)
[2016-11-06 12:00] VITALS: BP 114/65
[2016-11-06 16:38] VITALS: BP 126/70
[2016-11-06 18:04] LABS: Basophils # (auto) 0 uL; Basophils % (auto) 0.9 % (0.0-2.0); Eosinophils # (auto) 0.1 uL; Eosinophils % (auto) 1.7 % (0.0-7.0); Lymphocytes % (auto) 19.4 % (10.0-50.0); Mean Corpuscular Hemoglobin 29.6 pg (28.0-32.0); Mean Corpuscular Hgb Conc. 33.1 g/dL (32.0-36.0); Mean Corpuscular Volume 89.3 fL (80.0-100.0); Mean Platelet Volume 8.5 fL (7.4-10.4); Monocytes # (auto) 0.3 uL; Monocytes % (auto) 6.2 % (0.0-12.0); Neutrophils # (auto) 3.7 uL; Neutrophils % (auto) 71.8 % (37.0-80.0); Nucleated Red Blood Cells % 0.1 %; Platelet Count (auto) 86 10^3/uL (140-450); Red Cell Distribution Width 16.9 % (11.6-16.0); White Blood Cell 5.2 10^3/uL (4.4-10.8)
[2016-11-06] MEDS: HYDROcodone-ACET 5/325MG TAB PO PRN (19:56)
[2016-11-06 21:57] VITALS: BP 126/59
[2016-11-06] MEDS: ATORVASTATIN 20 MG TAB PO SCH (22:42)
[2016-11-07] MEDS: IPRATROPIUM BROM 0.5 MG/2.5ML INH SOL NEB SCH ×4 (00:03→18:59)
[2016-11-07] MEDS: HYDROcodone-ACET 5/325MG TAB PO PRN ×2 (02:27→14:31)
[2016-11-07 04:56] VITALS: BP 121/60
[2016-11-07] MEDS: Boost Glucose Control 8 Ounces PO SCH ×4 (06:32→22:00)
[2016-11-07] MEDS: FUROSEMIDE 20 MG TAB PO SCH (06:34)
[2016-11-07] MEDS: SODIUM CHLOR 0.9% PF (SALINE LOCK) 10ML VIAL IV SCH ×3 (06:34→22:04)
[2016-11-07] MEDS: InsuLIN REG 1unit/0.01ml Soln (100units/ml) SC SCH ×4 (06:34→22:06)
[2016-11-07] MEDS: ACCU-CHEK COMFORT CURVE STRIP VI SCH ×4 (06:35→22:06)
[2016-11-07 08:05] LABS: BUN/Creatinine Ratio 30.8; Calcium 8.1 mg/dL (8.5-10.1); Potassium 3.7 mmol/L (3.5-5.1)
[2016-11-07] MEDS: FERROUS SULFATE 325 MG TAB PO SCH ×2 (08:18→18:18)
[2016-11-07] MEDS: CALCIUM W/VIT D (600MG/400IU) TAB PO SCH ×2 (08:18→18:18)
[2016-11-07 08:23] VITALS: BP 121/60
[2016-11-07 08:30] VITALS: BP 123/65
[2016-11-07] MEDS ORDERED: SODIUM CHLORIDE 0.9% 1,000 ML IV ONE (08:45)
[2016-11-07] MEDS: CARVEDILOL 12.5 MG TAB PO SCH ×2 (10:20→22:00)
[2016-11-07] MEDS: ASPirin-EC 81 mg tab PO SCH (10:20)
[2016-11-07] MEDS: FAMOTIDINE 20 MG TAB PO SCH ×2 (10:21→22:05)
[2016-11-07] MEDS: ISOSORBIDE MONONITRATE 20 MG TAB PO SCH ×2 (10:21→22:05)
[2016-11-07] MEDS: ASCORBIC ACID 500 MG TAB PO SCH ×2 (10:21→22:05)
[2016-11-07] MEDS: ZINC SULFATE 220 MG CAP PO SCH (10:22)
[2016-11-07] MEDS: FLUCONAZOLE 100 MG TAB PO SCH (10:22)
[2016-11-07] MEDS: MULTIPLE VITAMIN TAB PO SCH (10:22)
[2016-11-07 13:00] VITALS: BP 120/62
[2016-11-07 17:00] VITALS: BP 115/59
[2016-11-07] MEDS: ATORVASTATIN 20 MG TAB PO SCH (22:05)
[2016-11-07 22:14] VITALS: BP 136/75
[2016-11-08] MEDS: IPRATROPIUM BROM 0.5 MG/2.5ML INH SOL NEB SCH ×4 (00:33→19:08)
[2016-11-08 05:17] VITALS: BP 123/70
[2016-11-08] MEDS: Boost Glucose Control 8 Ounces PO SCH ×4 (06:00→22:00)
[2016-11-08] MEDS: SODIUM CHLOR 0.9% PF (SALINE LOCK) 10ML VIAL IV SCH ×3 (06:44→22:27)
[2016-11-08] MEDS: InsuLIN REG 1unit/0.01ml Soln (100units/ml) SC SCH ×4 (06:44→22:00)
[2016-11-08] MEDS: ACCU-CHEK COMFORT CURVE STRIP VI SCH ×4 (06:45→22:29)
[2016-11-08] MEDS: FERROUS SULFATE 325 MG TAB PO SCH ×2 (07:59→18:25)
[2016-11-08] MEDS: CALCIUM W/VIT D (600MG/400IU) TAB PO SCH ×2 (07:59→18:26)
[2016-11-08 09:00] VITALS: BP 117/65
[2016-11-08 09:24] LABS: INR 1.42 (0.9-1.15); Partial Thromboplastin Time 36.9 sec (22.64-33.71); Prothrombin Time 15.5 sec (9.37-12.3)
[2016-11-08] MEDS: CARVEDILOL 12.5 MG TAB PO SCH ×2 (10:00→22:28)
[2016-11-08] MEDS: FLUCONAZOLE 100 MG TAB PO SCH (10:25)
[2016-11-08] MEDS: ASPirin-EC 81 mg tab PO SCH (10:25)
[2016-11-08] MEDS: MULTIPLE VITAMIN TAB PO SCH (10:25)
[2016-11-08] MEDS: ASCORBIC ACID 500 MG TAB PO SCH ×2 (10:25→22:29)
[2016-11-08] MEDS: ZINC SULFATE 220 MG CAP PO SCH (10:27)
[2016-11-08] MEDS: FAMOTIDINE 20 MG TAB PO SCH ×2 (10:27→22:29)
[2016-11-08] MEDS: ISOSORBIDE MONONITRATE 20 MG TAB PO SCH ×2 (10:28→22:28)
[2016-11-08 12:00] VITALS: BP 130/73
[2016-11-08 17:00] VITALS: BP 138/71
[2016-11-08 22:00] VITALS: BP 125/89
[2016-11-08] MEDS: ATORVASTATIN 20 MG TAB PO SCH (22:29)
[2016-11-09] MEDS: IPRATROPIUM BROM 0.5 MG/2.5ML INH SOL NEB SCH ×4 (00:11→18:36)
[2016-11-09 05:56] VITALS: BP 124/72
[2016-11-09] MEDS: Boost Glucose Control 8 Ounces PO SCH ×4 (06:30→22:00)
[2016-11-09] MEDS: SODIUM CHLOR 0.9% PF (SALINE LOCK) 10ML VIAL IV SCH ×3 (06:32→22:00)
[2016-11-09] MEDS: ACCU-CHEK COMFORT CURVE STRIP VI SCH ×3 (06:33→17:00)
[2016-11-09] MEDS: InsuLIN REG 1unit/0.01ml Soln (100units/ml) SC SCH ×4 (06:33→22:00)
[2016-11-09 08:12] VITALS: BP 143/77
[2016-11-09] MEDS: FERROUS SULFATE 325 MG TAB PO SCH ×2 (09:03→17:26)
[2016-11-09] MEDS: CALCIUM W/VIT D (600MG/400IU) TAB PO SCH ×2 (09:04→17:26)
[2016-11-09] MEDS: ISOSORBIDE MONONITRATE 20 MG TAB PO SCH ×2 (09:05→22:00)
[2016-11-09] MEDS: ASPirin-EC 81 mg tab PO SCH (09:06)
[2016-11-09] MEDS: FAMOTIDINE 20 MG TAB PO SCH ×2 (09:06→22:00)
[2016-11-09] MEDS: FLUCONAZOLE 100 MG TAB PO SCH (09:07)
[2016-11-09] MEDS: CARVEDILOL 12.5 MG TAB PO SCH ×2 (09:08→22:00)
[2016-11-09] MEDS: ZINC SULFATE 220 MG CAP PO SCH (09:08)
[2016-11-09] MEDS: ASCORBIC ACID 500 MG TAB PO SCH ×2 (09:09→22:00)
[2016-11-09] MEDS: MULTIPLE VITAMIN TAB PO SCH (09:09)
[2016-11-09 13:49] VITALS: BP 142/75
[2016-11-09] MEDS ORDERED: ONDANSETRON HCL 4 MG/2 ML VIAL IV PRN (14:45)
[2016-11-09] MEDS ORDERED: ACETAMINOPHEN 325 MG TAB PO PRN (14:45)
[2016-11-09] MEDS ORDERED: LACTULOSE 20Gm/30ML SOLN PO PRN (14:45)
[2016-11-09] MEDS ORDERED: DOCUSATE SOD 100 MG CAP PO PRN (14:45)
[2016-11-09] MEDS ORDERED: TEMAZEPAM 15 MG CAP PO PRN (14:45)
[2016-11-09] MEDS ORDERED: DEXTROSE (50%) 50ML SYRG IV PRN (14:45)
[2016-11-09] MEDS ORDERED: HYDROcodone-ACET 5/325MG TAB PO PRN (14:45)
[2016-11-09 17:38] VITALS: BP 145/82
[2016-11-09] MEDS: ATORVASTATIN 20 MG TAB PO SCH (22:00)
[2016-11-09 22:46] VITALS: BP 140/71
[2016-11-10] MEDS: ACCU-CHEK COMFORT CURVE STRIP VI SCH ×5 (00:14→22:20)
[2016-11-10] MEDS: IPRATROPIUM BROM 0.5 MG/2.5ML INH SOL NEB SCH ×5 (00:54→23:31)
[2016-11-10 04:54] VITALS: BP 143/77
[2016-11-10 05:52] LABS: Basophils # (auto) 0 uL; Basophils % (auto) 0.8 % (0.0-2.0); Eosinophils # (auto) 0 uL; Eosinophils % (auto) 0.8 % (0.0-7.0); Hemoglobin 9.7 g/dL (13.5-17.5); Lymphocytes % (auto) 21.1 % (10.0-50.0); Mean Corpuscular Hemoglobin 29.6 pg (28.0-32.0); Mean Corpuscular Hgb Conc. 33.4 g/dL (32.0-36.0); Mean Corpuscular Volume 88.5 fL (80.0-100.0); Mean Platelet Volume 8.7 fL (7.4-10.4); Monocytes # (auto) 0.3 uL; Monocytes % (auto) 6.6 % (0.0-12.0); Neutrophils # (auto) 3.5 uL; Neutrophils % (auto) 70.7 % (37.0-80.0); Nucleated Red Blood Cells % 0.1 %; Platelet Count (auto) 74 10^3/uL (140-450); Red Cell Distribution Width 17.4 % (11.6-16.0)
[2016-11-10] MEDS: InsuLIN REG 1unit/0.01ml Soln (100units/ml) SC SCH ×4 (06:09→22:00)
[2016-11-10] MEDS: SODIUM CHLOR 0.9% PF (SALINE LOCK) 10ML VIAL IV SCH ×3 (06:09→22:00)
[2016-11-10 06:24] LABS: Calcium 8.2 mg/dL (8.5-10.1); Potassium 3.8 mmol/L (3.5-5.1)
[2016-11-10 06:29] LABS: BUN/Creatinine Ratio 32.7
[2016-11-10 09:00] VITALS: BP 149/75
[2016-11-10] MEDS: ASPirin-EC 81 mg tab PO SCH (09:24)
[2016-11-10] MEDS: FAMOTIDINE 20 MG TAB PO SCH ×2 (09:25→22:00)
[2016-11-10] MEDS: ISOSORBIDE MONONITRATE 20 MG TAB PO SCH ×2 (09:26→22:00)
[2016-11-10] MEDS: CARVEDILOL 12.5 MG TAB PO SCH ×2 (09:27→22:00)
[2016-11-10] MEDS: ASCORBIC ACID 500 MG TAB PO SCH ×2 (09:27→22:00)
[2016-11-10] MEDS: MULTIPLE VITAMIN TAB PO SCH (09:28)
[2016-11-10] MEDS: FLUCONAZOLE 100 MG TAB PO SCH (09:28)
[2016-11-10] MEDS: FERROUS SULFATE 325 MG TAB PO SCH ×2 (09:32→17:52)
[2016-11-10] MEDS: ZINC SULFATE 220 MG CAP PO SCH (09:36)
[2016-11-10] MEDS: CALCIUM W/VIT D (600MG/400IU) TAB PO SCH ×2 (09:36→17:52)
[2016-11-10 10:19] VITALS: BP 143/77
[2016-11-10] MEDS: Boost Glucose Control 8 Ounces PO SCH ×3 (12:00→22:00)
[2016-11-10 13:00] VITALS: BP 141/75
[2016-11-10 17:00] VITALS: BP 140/71
[2016-11-10] MEDS: ATORVASTATIN 20 MG TAB PO SCH (22:00)
[2016-11-10 22:07] VITALS: BP 140/66
[2016-11-11 05:00] VITALS: BP 136/73
[2016-11-11] MEDS: SODIUM CHLOR 0.9% PF (SALINE LOCK) 10ML VIAL IV SCH ×3 (05:33→22:00)
[2016-11-11] MEDS: Boost Glucose Control 8 Ounces PO SCH ×4 (05:33→22:00)
[2016-11-11] MEDS: ACCU-CHEK COMFORT CURVE STRIP VI SCH ×4 (05:34→22:00)
[2016-11-11] MEDS: InsuLIN REG 1unit/0.01ml Soln (100units/ml) SC SCH ×4 (05:34→22:00)
[2016-11-11] MEDS: IPRATROPIUM BROM 0.5 MG/2.5ML INH SOL NEB SCH ×3 (06:22→18:43)
[2016-11-11 06:41] LABS: Potassium 3.6 mmol/L (3.5-5.1)
[2016-11-11 06:59] LABS: BUN/Creatinine Ratio 33.6; Calcium 8.3 mg/dL (8.5-10.1)
[2016-11-11] MEDS: FERROUS SULFATE 325 MG TAB PO SCH ×2 (08:00→17:22)
[2016-11-11] MEDS: CALCIUM W/VIT D (600MG/400IU) TAB PO SCH ×2 (08:00→17:22)
[2016-11-11 09:18] VITALS: BP 132/65
[2016-11-11] MEDS: ISOSORBIDE MONONITRATE 20 MG TAB PO SCH ×2 (10:00→22:00)
[2016-11-11] MEDS: MULTIPLE VITAMIN TAB PO SCH (10:00)
[2016-11-11] MEDS: FAMOTIDINE 20 MG TAB PO SCH ×2 (10:00→22:00)
[2016-11-11] MEDS: ASPirin-EC 81 mg tab PO SCH (10:00)
[2016-11-11] MEDS: FLUCONAZOLE 100 MG TAB PO SCH (10:00)
[2016-11-11] MEDS: ASCORBIC ACID 500 MG TAB PO SCH ×2 (10:00→22:00)
[2016-11-11] MEDS: ZINC SULFATE 220 MG CAP PO SCH (10:00)
[2016-11-11 11:42] LABS: Urine Bilirubin Negative (Negative); Urine Blood Negative /uL (Negative); Urine Color Yellow (Yellow); Urine Glucose Normal (Normal); Urine Ketone Negative (Negative); Urine Mucus FEW (None Seen); Urine Nitrite Negative (Negative); Urine RBC 3 /hpf (0 - 3); Urine Squamous Epithelial Cell FEW /hpf (<5); Urine Urobilinogen Normal (Negative)
[2016-11-11 13:00] VITALS: BP 140/82
[2016-11-11] MEDS ORDERED: LORazepam 2MG/ML-1ML VIAL ONE (13:02)
[2016-11-11] MEDS ORDERED: LORazepam 2MG/ML-1ML VIAL IV ONE (13:45)
[2016-11-11 17:56] VITALS: BP 153/77
[2016-11-11] MEDS ORDERED: SODIUM CHLORIDE 0.9% 1,000 ML IV SCH (21:00)
[2016-11-11] MEDS ORDERED: ACETAMINOPHEN 325 MG TAB PO PRN (21:00)
[2016-11-11] MEDS ORDERED: LABETALOL HCL 5 MG/ML ML 20ML VIAL IV PRN (21:00)
[2016-11-11 22:00] VITALS: BP 145/69
[2016-11-11] MEDS: ATORVASTATIN 20 MG TAB PO SCH (22:00)
[2016-11-12] MEDS: IPRATROPIUM BROM 0.5 MG/2.5ML INH SOL NEB SCH ×4 (00:51→18:24)
[2016-11-12 05:00] VITALS: BP 126/63
[2016-11-12] MEDS: Boost Glucose Control 8 Ounces PO SCH ×4 (06:00→21:45)
[2016-11-12] MEDS: SODIUM CHLOR 0.9% PF (SALINE LOCK) 10ML VIAL IV SCH ×3 (06:01→21:46)
[2016-11-12] MEDS: ACCU-CHEK COMFORT CURVE STRIP VI SCH ×4 (06:42→21:45)
[2016-11-12] MEDS: InsuLIN REG 1unit/0.01ml Soln (100units/ml) SC SCH ×4 (06:42→21:52)
[2016-11-12] MEDS: CALCIUM W/VIT D (600MG/400IU) TAB PO SCH ×2 (08:00→18:00)
[2016-11-12] MEDS: FERROUS SULFATE 325 MG TAB PO SCH ×2 (08:00→18:00)
[2016-11-12 08:39] LABS: INR 1.4 (0.9-1.15); Prothrombin Time 15.3 sec (9.37-12.3)
[2016-11-12 08:40] LABS: Basophils # (auto) 0 uL; Basophils % (auto) 0.2 % (0.0-2.0); CONDITION Y; Eosinophils # (auto) 0 uL; Hematocrit 26.8 % (41.0-53.0); Lymphocytes # (auto) 0.7 uL; Lymphocytes % (auto) 19.7 % (10.0-50.0); Mean Corpuscular Hemoglobin 29.9 pg (28.0-32.0); Mean Corpuscular Hgb Conc. 33.7 g/dL (32.0-36.0); Mean Corpuscular Volume 88.6 fL (80.0-100.0); Mean Platelet Volume 8.7 fL (6.9-10.8); Monocytes # (auto) 0.2 uL; Monocytes % (auto) 5.3 % (0.0-12.0); Neutrophils # (auto) 2.5 uL; Neutrophils % (auto) 73.8 % (37.0-80.0); Platelet Count (auto) 69 10^3/uL (140-450); Red Cell Distribution Width 17.9 % (11.8-14.3); SUSPECT SEE PRINTOUT; White Blood Cell 3.3 10^3/uL (4.4-10.8)
[2016-11-12 08:50] LABS: BUN/Creatinine Ratio 35.5; Calcium 8.1 mg/dL (8.5-10.1); Magnesium 2.7 mg/dL (1.6-2.6); Potassium 3.8 mmol/L (3.5-5.1)
[2016-11-12 09:35] VITALS: BP 123/67
[2016-11-12] MEDS: ZINC SULFATE 220 MG CAP PO SCH (10:00)
[2016-11-12] MEDS: ISOSORBIDE MONONITRATE 20 MG TAB PO SCH ×2 (10:00→21:45)
[2016-11-12] MEDS: ASPirin-EC 81 mg tab PO SCH (10:00)
[2016-11-12] MEDS: FLUCONAZOLE 100 MG TAB PO SCH (10:00)
[2016-11-12] MEDS: ASCORBIC ACID 500 MG TAB PO SCH ×2 (10:00→21:45)
[2016-11-12] MEDS: MULTIPLE VITAMIN TAB PO SCH (10:00)
[2016-11-12] MEDS: FAMOTIDINE 20 MG TAB PO SCH ×2 (10:00→21:45)
[2016-11-12] MEDS ORDERED: cefTRIAXone 1GM/50ML D5W 50 ML IV ONE (12:30)
[2016-11-12] MEDS ORDERED: FLEET ENEMA(ADULT) 135 ML PR ONE (12:45)
[2016-11-12 13:00] VITALS: BP 126/70
[2016-11-12] MEDS: D5W/SOD CHLO 0.9% 1,000 ML IV SCH (14:11)
[2016-11-12 17:18] VITALS: BP 115/54
[2016-11-12] MEDS ORDERED: SODIUM CHLORIDE 0.9% 1,000 ML IV SCH (21:00)
[2016-11-12] MEDS: ATORVASTATIN 20 MG TAB PO SCH (21:45)
[2016-11-12 22:00] VITALS: BP 117/66
[2016-11-13] MEDS: IPRATROPIUM BROM 0.5 MG/2.5ML INH SOL NEB SCH ×4 (00:38→19:45)
[2016-11-13 05:00] VITALS: BP 118/65
[2016-11-13] MEDS: Boost Glucose Control 8 Ounces PO SCH ×4 (05:20→22:16)
[2016-11-13] MEDS: SODIUM CHLOR 0.9% PF (SALINE LOCK) 10ML VIAL IV SCH ×3 (05:20→22:15)
[2016-11-13] MEDS: InsuLIN REG 1unit/0.01ml Soln (100units/ml) SC SCH ×4 (06:16→22:00)
[2016-11-13] MEDS: ACCU-CHEK COMFORT CURVE STRIP VI SCH ×4 (06:16→22:00)
[2016-11-13 07:03] LABS: Calcium 7.6 mg/dL (8.5-10.1); Potassium 4.1 mmol/L (3.5-5.1)
[2016-11-13 07:07] LABS: BUN/Creatinine Ratio 30.6
[2016-11-13] MEDS: CALCIUM W/VIT D (600MG/400IU) TAB PO SCH ×2 (08:35→18:03)
[2016-11-13] MEDS: FERROUS SULFATE 325 MG TAB PO SCH ×2 (08:35→18:03)
[2016-11-13] MEDS: D5W/SOD CHLO 0.9% 1,000 ML IV SCH (08:35)
[2016-11-13 09:00] VITALS: BP 125/70
[2016-11-13] MEDS ORDERED: cefTRIAXone 1GM/50ML D5W 50 ML IV SCH (09:00)
[2016-11-13] MEDS: ASPirin-EC 81 mg tab PO SCH (10:32)
[2016-11-13] MEDS: ASCORBIC ACID 500 MG TAB PO SCH ×3 (10:33→22:17)
[2016-11-13] MEDS: FAMOTIDINE 20 MG TAB PO SCH ×3 (10:33→22:17)
[2016-11-13] MEDS: ISOSORBIDE MONONITRATE 20 MG TAB PO SCH ×2 (10:33→22:00)
[2016-11-13] MEDS: MULTIPLE VITAMIN TAB PO SCH (10:33)
[2016-11-13] MEDS: FLUCONAZOLE 100 MG TAB PO SCH (10:33)
[2016-11-13] MEDS: ZINC SULFATE 220 MG CAP PO SCH (10:33)
[2016-11-13] MEDS: ALBUMIN 25% 100 ML IV SCH ×2 (10:38→22:37)
[2016-11-13 11:42] VITALS: BP 125/70
[2016-11-13] MEDS: BUMETANIDE (0.25MG/ML) 4 ML VIAL IV SCH ×2 (11:56→23:00)
[2016-11-13 12:58] VITALS: BP 117/70
[2016-11-13] MEDS ORDERED: metroNIDAZOLE 500 MG TAB PO ONE (15:30)
[2016-11-13 16:25] VITALS: BP 115/66
[2016-11-13] MEDS: AMPICILLIN 500 MG CAP PO SCH (18:04)
[2016-11-13] MEDS: ATORVASTATIN 20 MG TAB PO SCH ×2 (22:00→22:17)
[2016-11-13] MEDS: metroNIDAZOLE 500 MG TAB PO SCH ×2 (22:00→22:16)
[2016-11-14] MEDS: IPRATROPIUM BROM 0.5 MG/2.5ML INH SOL NEB SCH ×4 (00:11→19:18)
[2016-11-14] MEDS: D5W/SOD CHLO 0.9% 1,000 ML IV SCH (04:53)
[2016-11-14] MEDS: AMPICILLIN 500 MG CAP PO SCH ×4 (06:10→17:45)
[2016-11-14] MEDS: metroNIDAZOLE 500 MG TAB PO SCH ×3 (06:11→21:39)
[2016-11-14] MEDS: SODIUM CHLOR 0.9% PF (SALINE LOCK) 10ML VIAL IV SCH ×3 (06:11→21:33)
[2016-11-14] MEDS: Boost Glucose Control 8 Ounces PO SCH ×4 (06:11→21:34)
[2016-11-14 06:18] LABS: Basophils # (auto) 0 uL; Basophils % (auto) 0.2 % (0.0-2.0); CONDITION Y; DEFINITIVE SEE PRINTOUT; Eosinophils # (auto) 0 uL; Eosinophils % (auto) 0.2 % (0.0-7.0); Hematocrit 26.4 % (41.0-53.0); Hemoglobin 8.8 g/dL (13.5-17.5); Lymphocytes # (auto) 1.8 uL; Lymphocytes % (auto) 18.5 % (10.0-50.0); Mean Corpuscular Hemoglobin 30.1 pg (28.0-32.0); Mean Corpuscular Hgb Conc. 33.2 g/dL (32.0-36.0); Mean Corpuscular Volume 90.6 fL (80.0-100.0); Mean Platelet Volume 8.7 fL (6.9-10.8); Monocytes # (auto) 0.4 uL; Monocytes % (auto) 4.2 % (0.0-12.0); Neutrophils # (auto) 7.3 uL; Neutrophils % (auto) 76.9 % (37.0-80.0); Platelet Count (auto) 44 10^3/uL (140-450); Red Cell Distribution Width 19.1 % (11.8-14.3); SUSPECT SEE PRINTOUT; White Blood Cell 9.5 10^3/uL (4.4-10.8)
[2016-11-14] MEDS: ACCU-CHEK COMFORT CURVE STRIP VI SCH ×4 (06:19→21:41)
[2016-11-14] MEDS: InsuLIN REG 1unit/0.01ml Soln (100units/ml) SC SCH ×4 (06:19→21:41)
[2016-11-14 06:46] LABS: Albumin 2.6 g/dL (3.4-5.0); BUN/Creatinine Ratio 32.8; Bilirubin, Total 0.3 mg/dL (0.2-1.0); Calcium 7.5 mg/dL (8.5-10.1); Phosphorus 4.4 mg/dL (2.5-4.90); Potassium 3.8 mmol/L (3.5-5.1); Total Protein 6.1 g/dL (6.4-8.2)
[2016-11-14 09:00] VITALS: BP 123/60
[2016-11-14] MEDS: FERROUS SULFATE 325 MG TAB PO SCH ×2 (09:03→17:45)
[2016-11-14] MEDS: CALCIUM W/VIT D (600MG/400IU) TAB PO SCH ×2 (09:04→17:45)
[2016-11-14] MEDS: ZINC SULFATE 220 MG CAP PO SCH (09:17)
[2016-11-14] MEDS: FAMOTIDINE 20 MG TAB PO SCH ×2 (09:17→21:40)
[2016-11-14] MEDS: ASPirin-EC 81 mg tab PO SCH (09:17)
[2016-11-14] MEDS: FLUCONAZOLE 100 MG TAB PO SCH (09:17)
[2016-11-14] MEDS: ASCORBIC ACID 500 MG TAB PO SCH ×2 (09:17→21:40)
[2016-11-14] MEDS: MULTIPLE VITAMIN TAB PO SCH (09:17)
[2016-11-14] MEDS: ISOSORBIDE MONONITRATE 20 MG TAB PO SCH ×2 (09:18→21:40)
[2016-11-14] MEDS: ALBUMIN 25% 100 ML IV SCH ×2 (10:35→21:39)
[2016-11-14] MEDS: SPIRONOLACTONE 25 MG TAB PO SCH (10:35)
[2016-11-14 12:14] VITALS: BP 140/76
[2016-11-14] MEDS: BUMETANIDE (0.25MG/ML) 4 ML VIAL IV SCH ×2 (12:24→22:56)
[2016-11-14 16:04] VITALS: BP 138/76
[2016-11-14 17:07] VITALS: BP 128/73
[2016-11-14 18:03] VITALS: BP 133/76
[2016-11-14] MEDS: ATORVASTATIN 20 MG TAB PO SCH (21:40)
[2016-11-14 21:44] VITALS: BP 141/77
[2016-11-15] VITALS (17 sets, daily range): BP systolic 133–150; BP diastolic 71–96
[2016-11-15] MEDS: IPRATROPIUM BROM 0.5 MG/2.5ML INH SOL NEB SCH ×4 (00:19→19:35)
[2016-11-15] MEDS: D5W/SOD CHLO 0.9% 1,000 ML IV SCH ×2 (00:30→20:30)
[2016-11-15] MEDS: SODIUM CHLOR 0.9% PF (SALINE LOCK) 10ML VIAL IV SCH ×3 (05:43→21:26)
[2016-11-15] MEDS: Boost Glucose Control 8 Ounces PO SCH ×4 (05:43→22:14)
[2016-11-15] MEDS: AMPICILLIN 500 MG CAP PO SCH ×4 (05:44→17:24)
[2016-11-15] MEDS: metroNIDAZOLE 500 MG TAB PO SCH (05:44)
[2016-11-15 05:48] LABS: Basophils # (auto) 0 uL; Basophils % (auto) 0.3 % (0.0-2.0); CONDITION Y; DEFINITIVE SEE PRINTOUT; Eosinophils # (auto) 0.1 uL; Eosinophils % (auto) 0.8 % (0.0-7.0); Hematocrit 23.8 % (41.0-53.0); Hemoglobin 7.8 g/dL (13.5-17.5); Lymphocytes # (auto) 1.2 uL; Lymphocytes % (auto) 19.3 % (10.0-50.0); Mean Corpuscular Hemoglobin 29.8 pg (28.0-32.0); Mean Corpuscular Hgb Conc. 32.7 g/dL (32.0-36.0); Mean Corpuscular Volume 91.1 fL (80.0-100.0); Mean Platelet Volume 8.4 fL (6.9-10.8); Monocytes # (auto) 0.3 uL; Monocytes % (auto) 4.7 % (0.0-12.0); Neutrophils # (auto) 4.7 uL; Neutrophils % (auto) 74.9 % (37.0-80.0); Platelet Count (auto) 48 10^3/uL (140-450); Red Cell Distribution Width 19.7 % (11.8-14.3); White Blood Cell 6.3 10^3/uL (4.4-10.8)
[2016-11-15 06:11] LABS: Albumin 2.9 g/dL (3.4-5.0); BUN/Creatinine Ratio 32.8; Bilirubin, Total 0.4 mg/dL (0.2-1.0); Calcium 7.6 mg/dL (8.5-10.1); Potassium 3.6 mmol/L (3.5-5.1); Total Protein 6.2 g/dL (6.4-8.2)
[2016-11-15 06:26] LABS: Anisocytosis Moderate; Platelet Estimate Decreased
[2016-11-15 06:27] LABS: Burr Cells FEW; Ovalocytes FEW
[2016-11-15] MEDS: ACCU-CHEK COMFORT CURVE STRIP VI SCH ×4 (06:51→22:40)
[2016-11-15] MEDS: InsuLIN REG 1unit/0.01ml Soln (100units/ml) SC SCH ×4 (06:51→22:41)
[2016-11-15] MEDS: FERROUS SULFATE 325 MG TAB PO SCH ×2 (08:17→17:24)
[2016-11-15] MEDS: CALCIUM W/VIT D (600MG/400IU) TAB PO SCH ×2 (08:17→17:24)
[2016-11-15] MEDS: ASCORBIC ACID 500 MG TAB PO SCH ×2 (09:30→22:40)
[2016-11-15] MEDS: FAMOTIDINE 20 MG TAB PO SCH ×2 (09:30→22:40)
[2016-11-15] MEDS: SPIRONOLACTONE 25 MG TAB PO SCH (09:30)
[2016-11-15] MEDS: ASPirin-EC 81 mg tab PO SCH (09:30)
[2016-11-15] MEDS: MULTIPLE VITAMIN TAB PO SCH (09:31)
[2016-11-15] MEDS: ISOSORBIDE MONONITRATE 20 MG TAB PO SCH ×2 (09:31→22:42)
[2016-11-15] MEDS: ZINC SULFATE 220 MG CAP PO SCH (09:31)
[2016-11-15 10:51] LABS: Temperature: 22.3 C (20.0-25.0)
[2016-11-15] MEDS ORDERED: ISO20T PO (12:09)
[2016-11-15] MEDS ORDERED: ASP81EC PO (12:09)
[2016-11-15] MEDS ORDERED: FAM20T PO (12:09)
[2016-11-15] MEDS ORDERED: ATOR20TA50 PO (12:09)
[2016-11-15] MEDS ORDERED: FER325T PO (12:09)
[2016-11-15] MEDS: CARVEDILOL 3.125 MG TAB PO SCH ×2 (13:09→22:42)
[2016-11-15] MEDS: FLORASTOR (S. BOULARDII) 250 MG CAP PO SCH (13:11)
[2016-11-15] MEDS: ATORVASTATIN 20 MG TAB PO SCH (22:40)
[2016-11-16] MEDS: AMPICILLIN 500 MG CAP PO SCH ×5 (00:32→23:34)
[2016-11-16 05:00] VITALS: BP 131/73
[2016-11-16 05:48] LABS: Basophils # (auto) 0.1 uL; Basophils % (auto) 0.7 % (0.0-2.0); Eosinophils # (auto) 0.1 uL; Hematocrit 26.3 % (41.0-53.0); Hemoglobin 8.8 g/dL (13.5-17.5); Lymphocytes # (auto) 1.3 uL; Lymphocytes % (auto) 15.2 % (10.0-50.0); Mean Corpuscular Hemoglobin 30.1 pg (28.0-32.0); Mean Corpuscular Hgb Conc. 33.5 g/dL (32.0-36.0); Mean Corpuscular Volume 89.8 fL (80.0-100.0); Mean Platelet Volume 8.5 fL (6.9-10.8); Monocytes # (auto) 0.4 uL; Monocytes % (auto) 4.5 % (0.0-12.0); Neutrophils # (auto) 6.5 uL; Neutrophils % (auto) 78.6 % (37.0-80.0); Nucleated Red Blood Cells % 0.1 %; Platelet Count (auto) 43 10^3/uL (140-450); Red Cell Distribution Width 17.9 % (11.8-14.3); White Blood Cell 8.3 10^3/uL (4.4-10.8)
[2016-11-16 06:24] LABS: Albumin 2.7 g/dL (3.4-5.0); BUN/Creatinine Ratio 33.7; Bilirubin, Total 0.5 mg/dL (0.2-1.0); Calcium 7.6 mg/dL (8.5-10.1); Potassium 3.6 mmol/L (3.5-5.1); Total Protein 6.2 g/dL (6.4-8.2)
[2016-11-16] MEDS: Boost Glucose Control 8 Ounces PO SCH ×4 (06:24→23:04)
[2016-11-16] MEDS: ACCU-CHEK COMFORT CURVE STRIP VI SCH ×4 (06:25→23:06)
[2016-11-16] MEDS: SODIUM CHLOR 0.9% PF (SALINE LOCK) 10ML VIAL IV SCH ×3 (06:26→23:04)
[2016-11-16] MEDS: INSULIN DETEMIR(LEVEMIR) 1unit/0.01ml Soln (100units/ml) SC SCH (06:45)
[2016-11-16] MEDS: InsuLIN REG 1unit/0.01ml Soln (100units/ml) SC SCH ×4 (06:45→23:07)
[2016-11-16] MEDS: IPRATROPIUM BROM 0.5 MG/2.5ML INH SOL NEB SCH ×4 (07:02→19:44)
[2016-11-16 09:00] VITALS: BP 143/81
[2016-11-16] MEDS: FAMOTIDINE 20 MG TAB PO SCH ×2 (09:06→23:07)
[2016-11-16] MEDS: ZINC SULFATE 220 MG CAP PO SCH (09:06)
[2016-11-16] MEDS: MULTIPLE VITAMIN TAB PO SCH (09:06)
[2016-11-16] MEDS: CALCIUM W/VIT D (600MG/400IU) TAB PO SCH ×2 (09:06→17:36)
[2016-11-16] MEDS: FERROUS SULFATE 325 MG TAB PO SCH ×2 (09:06→17:36)
[2016-11-16] MEDS: SPIRONOLACTONE 25 MG TAB PO SCH (09:06)
[2016-11-16] MEDS: ASCORBIC ACID 500 MG TAB PO SCH ×2 (09:06→23:06)
[2016-11-16] MEDS: CARVEDILOL 3.125 MG TAB PO SCH ×2 (09:07→23:05)
[2016-11-16] MEDS: ASPirin-EC 81 mg tab PO SCH (09:07)
[2016-11-16] MEDS: FLORASTOR (S. BOULARDII) 250 MG CAP PO SCH (09:07)
[2016-11-16] MEDS: ISOSORBIDE MONONITRATE 20 MG TAB PO SCH ×2 (09:08→23:06)
[2016-11-16] MEDS ORDERED: CAR3125T PO (10:44)
[2016-11-16] MEDS ORDERED: AMPI500C59 PO (10:46)
[2016-11-16] MEDS ORDERED: SACC250C PO (10:46)
[2016-11-16] MEDS ORDERED: TORSEMIDE 20 MG TAB PO ONE (11:15)
[2016-11-16 13:00] VITALS: BP 147/84
[2016-11-16 15:24] VITALS: BP 147/84
[2016-11-16] MEDS: D5W/SOD CHLO 0.9% 1,000 ML IV SCH (16:33)
[2016-11-16 17:00] VITALS: BP 138/72
[2016-11-16] MEDS: ATORVASTATIN 20 MG TAB PO SCH (23:06)
[2016-11-16 23:47] VITALS: BP 141/75
[2016-11-17] MEDS: IPRATROPIUM BROM 0.5 MG/2.5ML INH SOL NEB SCH ×3 (01:22→11:57)
[2016-11-17 05:38] VITALS: BP 144/84
[2016-11-17 06:18] LABS: Basophils # (auto) 0 uL; Basophils % (auto) 0.6 % (0.0-2.0); Eosinophils # (auto) 0.1 uL; Eosinophils % (auto) 1.8 % (0.0-7.0); Lymphocytes # (auto) 1.6 uL; Lymphocytes % (auto) 24.9 % (10.0-50.0); Mean Corpuscular Hemoglobin 30.3 pg (28.0-32.0); Mean Corpuscular Hgb Conc. 33.3 g/dL (32.0-36.0); Mean Platelet Volume 8.8 fL (6.9-10.8); Monocytes # (auto) 0.3 uL; Monocytes % (auto) 5.2 % (0.0-12.0); Neutrophils # (auto) 4.2 uL; Neutrophils % (auto) 67.5 % (37.0-80.0); Platelet Count (auto) 44 10^3/uL (140-450); Red Cell Distribution Width 17.7 % (11.8-14.3); White Blood Cell 6.3 10^3/uL (4.4-10.8)
[2016-11-17 06:48] LABS: Albumin 2.6 g/dL (3.4-5.0); BUN/Creatinine Ratio 32.2; Bilirubin, Total 0.4 mg/dL (0.2-1.0); Calcium 7.6 mg/dL (8.5-10.1); Potassium 4.1 mmol/L (3.5-5.1); Total Protein 6.2 g/dL (6.4-8.2)
[2016-11-17] MEDS: ACCU-CHEK COMFORT CURVE STRIP VI SCH ×2 (06:56→11:59)
[2016-11-17] MEDS: AMPICILLIN 500 MG CAP PO SCH ×2 (06:57→11:46)
[2016-11-17] MEDS: Boost Glucose Control 8 Ounces PO SCH (06:57)
[2016-11-17] MEDS: SODIUM CHLOR 0.9% PF (SALINE LOCK) 10ML VIAL IV SCH (06:57)
[2016-11-17] MEDS: InsuLIN REG 1unit/0.01ml Soln (100units/ml) SC SCH (06:57)
[2016-11-17] MEDS: INSULIN DETEMIR(LEVEMIR) 1unit/0.01ml Soln (100units/ml) SC SCH (06:57)
[2016-11-17 08:09] LABS: Vitamin D 25-Hydroxy 11 ng/mL (.); Vitamin D-2 25-Hydroxy <1.0 ng/mL (.)
[2016-11-17 08:51] VITALS: BP 150/88
[2016-11-17] MEDS ORDERED: TORSEMIDE 20 MG TAB PO SCH (10:00)
[2016-11-17] MEDS: ZINC SULFATE 220 MG CAP PO SCH (11:44)
[2016-11-17] MEDS: ASCORBIC ACID 500 MG TAB PO SCH (11:46)
[2016-11-17] MEDS: MULTIPLE VITAMIN TAB PO SCH (11:46)
[2016-11-17] MEDS: ASPirin-EC 81 mg tab PO SCH (11:47)
[2016-11-17] MEDS: CARVEDILOL 3.125 MG TAB PO SCH (11:48)
[2016-11-17] MEDS: FLORASTOR (S. BOULARDII) 250 MG CAP PO SCH (11:48)
[2016-11-17] MEDS: ISOSORBIDE MONONITRATE 20 MG TAB PO SCH (11:50)
[2016-11-17] MEDS: FERROUS SULFATE 325 MG TAB PO SCH (11:54)
[2016-11-17] MEDS: CALCIUM W/VIT D (600MG/400IU) TAB PO SCH (11:55)
[2016-11-17 12:55] VITALS: BP 150/88
[2016-11-17 13:00] VITALS: BP 158/90
[2016-11-18] MEDS ORDERED: FAMOTIDINE 20 MG TAB PO SCH (10:00)
== END 2016-11-17 15:17 | disposition hospice, home (50) | DRG 919 ==
LOC: ER 11:37 → EDBD 11:37 → TELE 11:38 → TELE-EAST 22:55 → EAST 11-01 06:15 → TELE-EAST 11-11 09:53
PROVIDERS: ADMIT Internal Medicine; ATTEND Internal Medicine
PROC: 30233R1 Transfusion of Nonautologous Platelets into Peripheral Vein, Percutaneous Approach (ICD-10-PCS; 2016-11-14)
PROC: 30233N1 Transfusion of Nonautologous Red Blood Cells into Peripheral Vein, Percutaneous Approach (ICD-10-PCS; principal; 2016-11-15)
PROC: 30233R1 Transfusion of Nonautologous Platelets into Peripheral Vein, Percutaneous Approach (ICD-10-PCS; 2016-11-15)
DX: T85.618A Breakdown (mechanical) of other specified internal prosthetic devices, implants and grafts, initial encounter (principal); I50.43 Acute on chronic combined systolic (congestive) and diastolic (congestive) heart failure; N17.0 Acute kidney failure with tubular necrosis; I63.9 Cerebral infarction, unspecified; E43 Unspecified severe protein-calorie malnutrition; J18.1 Lobar pneumonia, unspecified organism; N18.4 Chronic kidney disease, stage 4 (severe); L89.153 Pressure ulcer of sacral region, stage 3; D69.6 Thrombocytopenia, unspecified; I13.0 Hypertensive heart and chronic kidney disease with heart failure and stage 1 through stage 4 chronic kidney disease, or unspecified chronic kidney disease; L97.409 Non-pressure chronic ulcer of unspecified heel and midfoot with unspecified severity; B37.49 Other urogenital candidiasis; G81.94 Hemiplegia, unspecified affecting left nondominant side; R47.01 Aphasia; N39.0 Urinary tract infection, site not specified; E11.21 Type 2 diabetes mellitus with diabetic nephropathy; L89.609 Pressure ulcer of unspecified heel, unspecified stage; E11.22 Type 2 diabetes mellitus with diabetic chronic kidney disease; E83.41 Hypermagnesemia; E87.5 Hyperkalemia; N18.3 Chronic kidney disease, stage 3 (moderate); E83.51 Hypocalcemia; D63.8 Anemia in other chronic diseases classified elsewhere; E21.3 Hyperparathyroidism, unspecified; E87.6 Hypokalemia; Y83.8 Other surgical procedures as the cause of abnormal reaction of the patient, or of later complication, without mention of misadventure at the time of the procedure; I70.0 Atherosclerosis of aorta; Z77.090 Contact with and (suspected) exposure to asbestos; F32.9 Major depressive disorder, single episode, unspecified; F43.10 Post-traumatic stress disorder, unspecified; I25.10 Atherosclerotic heart disease of native coronary artery without angina pectoris; R62.7 Adult failure to thrive; Z79.4 Long term (current) use of insulin; Z79.82 Long term (current) use of aspirin; Z79.899 Other long term (current) drug therapy; Z82.49 Family history of ischemic heart disease and other diseases of the circulatory system; Z68.21 Body mass index [BMI] 21.0-21.9, adult; Z86.14 Personal history of Methicillin resistant Staphylococcus aureus infection; Y92.89 Other specified places as the place of occurrence of the external cause
CPT/HCPCS: 36415; 70450; 70551; 71010; 71250; 76775; 80048; 80053; 81001; 82306; 82570; 82607; 82746; 82784; 82962; 83036; 83540; 83550; 83605; 83735; 83880; 83970; 84100; 84156; 84300; 84484; 85025; 85610; 85730; 86038; 86334; 86335; 86592; 86803; 86850; 86900; 86901; 86920; 87040; 87045; 87081; 87086; 87088; 87186; 87340; 87493; 87899; 92610; 93005; 94640; 94761; 95819; 96365; 96375; 97110; 97163; 97530; J0610; J0696; J1815; J2405; J7042

== ENCOUNTER 2016-11-19 07:15 | Inpatient (IN) | payer OTHER, MEDICARE ==
[2016-11-19] VITALS (76 sets, daily range): BP systolic 69–171; BP diastolic 36–106
[~2016-11-19] VITALS: Ht 185.4 cm; Wt 77.0 kg
[~2016-11-19 07:15] MED LIST changes: +AMPI500C8 PO; +ATOR20TA50 PO; +FAM20T PO; +FER325T PO; +ISO20T PO; +SACC250C PO
[2016-11-19] MEDS ORDERED: SODIUM CHLORIDE 0.9% 1,000 ML IV ONE ×2 (07:29)
[2016-11-19 07:58] LABS: Basophils # (auto) 0.1 uL; Basophils % (auto) 0.8 % (0.0-2.0); Eosinophils # (auto) 0 uL; Eosinophils % (auto) 0.6 % (0.0-7.0); Hematocrit 15.6 % (41.0-53.0); Lymphocytes # (auto) 2.7 uL; Lymphocytes % (auto) 32.1 % (10.0-50.0); Mean Corpuscular Hemoglobin 31.1 pg (28.0-32.0); Mean Corpuscular Hgb Conc. 33.6 g/dL (32.0-36.0); Mean Corpuscular Volume 92.3 fL (80.0-100.0); Mean Platelet Volume 9.4 fL (6.9-10.8); Monocytes # (auto) 0.3 uL; Monocytes % (auto) 3.7 % (0.0-12.0); Neutrophils # (auto) 5.3 uL; Neutrophils % (auto) 62.8 % (37.0-80.0); Nucleated Red Blood Cells % 0.1 %; Platelet Count (auto) 58 10^3/uL (140-450); Red Cell Distribution Width 18.1 % (11.8-14.3); White Blood Cell 8.5 10^3/uL (4.4-10.8)
[2016-11-19] MEDS ORDERED: ETOMIDATE (2MG/ML) 20ML VIAL IV ONE ×2 (08:02→08:03)
[2016-11-19 08:05] LABS: Urine Bilirubin Negative (Negative); Urine Blood 2+ /uL (Negative); Urine Color Yellow (Yellow); Urine Glucose TRACE mg/dL (Normal); Urine Ketone Negative (Negative); Urine Mucus FEW (None Seen); Urine Nitrite Negative (Negative); Urine RBC 96 /hpf (0 - 3); Urine Squamous Epithelial Cell FEW /hpf (<5); Urine Urobilinogen Normal (Negative); Urine WBC Clumps PRESENT /hpf (None Seen)
[2016-11-19] MEDS ORDERED: MIDAZOLAM HCL 1MG/1ML-2 ML VIAL ONE (08:06)
[2016-11-19 08:07] LABS: Hemoglobin 5.3 g/dL (13.5-17.5)
[2016-11-19] MEDS ORDERED: MIDAZOLAM DRIP 50 mg/50mL 50 ML IV ONE (08:07)
[2016-11-19 08:14] LABS: INR 1.46 (0.9-1.15); Partial Thromboplastin Time 33.1 sec (22.64-33.71)
[2016-11-19 08:39] LABS: BUN/Creatinine Ratio 34.3; Bilirubin, Total 0.3 mg/dL (0.2-1.0); Calcium 7.3 mg/dL (8.5-10.1); Potassium 4.3 mmol/L (3.5-5.1); Total Protein 5.2 g/dL (6.4-8.2)
[2016-11-19 08:42] LABS: Temperature: 21.5 C (20.0-25.0)
[2016-11-19] MEDS ORDERED: cefTRIAXone 1GM/50ML D5W 50 ML IV ONE (09:00)
[2016-11-19] MEDS ORDERED: PANTOPRAZOLE 80 MG in SODIUM CHL 0.9% 60 ML IV ONE (09:00)
[2016-11-19] MEDS ORDERED: NOREPINEPHRINE 8 MG/250ML KIT 250 ML IV ONE (09:00)
[2016-11-19] MEDS ORDERED: NOREPINEPHRINE 8 MG/250ML KIT 250 ML IV SCH (09:04)
[2016-11-19] MEDS: NOREPINEPHRINE 8 MG/250ML KIT 250 ML IV SCH (09:10)
[2016-11-19] MEDS ORDERED: PANTOPRAZOLE 40 MG/10 ML VIAL IV ONE (09:15)
[2016-11-19] MEDS ORDERED: MORPHINE SULF INJ 2 MG/ML SYRINGE 1ML IV PRN (09:15)
[2016-11-19] MEDS ORDERED: NITROGLYCERIN 0.4 MG SL TAB SL PRN (09:15)
[2016-11-19] MEDS ORDERED: metroNIDAZOLE 500MG/100ML 100 ML IV ONE (09:15)
[2016-11-19 09:27] LABS: Lactic Acid w/Reflex 3.9 mmol/L (0.4-2.0)
[2016-11-19 09:58] LABS: REFLEX LACTIC ACID YES OR NO YES
[2016-11-19] MEDS ORDERED: PANTOPRAZOLE 40 MG/10 ML VIAL IV SCH (10:00)
[2016-11-19] MEDS: ACCU-CHEK COMFORT CURVE STRIP VI SCH ×4 (10:47→20:00)
[2016-11-19] MEDS: InsuLIN REG 1unit/0.01ml Soln (100units/ml) SC SCH ×4 (10:50→20:00)
[2016-11-19] MEDS: FLUCONAZOLE 200MG/100ML 100 ML IV SCH ×2 (11:00→15:03)
[2016-11-19] MEDS: SODIUM CHLORIDE 0.9% 1,000 ML IV SCH ×2 (11:13→18:27)
[2016-11-19 11:39] LABS: Allen Test Modified; HCO3 26.7 mmol/L (22-26.0); MODE VENT - A/C; PCO2 39.7 mmHg (35.0-45.0); PCO2(T) 34.8 mmHg (35.0-45.0); PO2(T) 243.1 mmHg (80.0-100.0); Room 1009-ERT; Sample Type Arterial; Total Hemoglobin < 4.90 g/dL (12.00-18.00); pH 7.446 (7.350-7.450)
[2016-11-19] MEDS: AMPICILLIN INJ 1 GM in SODIUM CHL 0.9% 50 ML IV SCH ×3 (11:39→21:43)
[2016-11-19] MEDS ORDERED: AMPICILLIN INJ 1 GM in SODIUM CHL 0.9% 50 ML IV SCH (12:00)
[2016-11-19 12:16] LABS: Hematocrit 14.8 % (41.0-53.0)
[2016-11-19] MEDS: MIDAZOLAM DRIP 50 mg/50mL 50 ML IV SCH ×2 (12:39→22:17)
[2016-11-19] MEDS ORDERED: GOLYTELY 4L KIT PO ONE (13:45)
[2016-11-19] MEDS: LEVOFLOXACIN 500MG 100 ML IV SCH (13:45)
[2016-11-19] MEDS: DOPamine 1600MCG/ML D5W 250 ML IV SCH (14:00)
[2016-11-19] MEDS: metroNIDAZOLE 500MG/100ML 100 ML IV SCH ×2 (16:34→22:16)
[2016-11-19 17:11] LABS: Hematocrit 14.5 % (41.0-53.0); Mean Corpuscular Hemoglobin 30.1 pg (28.0-32.0); Mean Platelet Volume 7.8 fL (6.9-10.8); Platelet Count (auto) 119 10^3/uL (140-450); Red Cell Distribution Width 15.3 % (11.8-14.3); White Blood Cell 7.4 10^3/uL (4.4-10.8)
[2016-11-19 17:16] LABS: Hemoglobin 5.1 g/dL (13.5-17.5)
[2016-11-19 17:17] LABS: Metamyelocytes % 0; Myelocytes % 0; Promyelocytes % 0
[2016-11-19 17:25] LABS: Lactic Acid w/Reflex 2.2 mmol/L (0.4-2.0)
[2016-11-19 17:49] LABS: REFLEX LACTIC ACID YES OR NO YES
[2016-11-19 18:07] LABS: Platelet Estimate Decreased; Reactive Lymphocytes 1
[2016-11-19] MEDS ORDERED: FLUCONAZOLE 200MG/100ML 100 ML IV SCH (19:00)
[2016-11-20] VITALS (99 sets, daily range): BP systolic 0–167; BP diastolic 0–84
[2016-11-20] MEDS: DEXTROSE (50%) 50ML SYRG IV PRN ×3 (00:38→06:28)
[2016-11-20] MEDS: SODIUM CHLORIDE 0.9% 1,000 ML IV SCH ×2 (01:05→09:05)
[2016-11-20 02:56] LABS: Basophils # (auto) 0 uL; Basophils % (auto) 0.7 % (0.0-2.0); Eosinophils # (auto) 0 uL; Eosinophils % (auto) 0.7 % (0.0-7.0); Lymphocytes # (auto) 0.9 uL; Lymphocytes % (auto) 13.5 % (10.0-50.0); Mean Corpuscular Hemoglobin 28.6 pg (28.0-32.0); Mean Corpuscular Hgb Conc. 34.5 g/dL (32.0-36.0); Mean Corpuscular Volume 82.9 fL (80.0-100.0); Mean Platelet Volume 7.6 fL (6.9-10.8); Monocytes # (auto) 0.4 uL; Monocytes % (auto) 5.8 % (0.0-12.0); Neutrophils # (auto) 5.6 uL; Neutrophils % (auto) 79.3 % (37.0-80.0); Nucleated Red Blood Cells % 0.1 %; Platelet Count (auto) 95 10^3/uL (140-450); Red Cell Distribution Width 16.2 % (11.8-14.3)
[2016-11-20 03:01] LABS: Hemoglobin 7.6 g/dL (13.5-17.5)
[2016-11-20] MEDS: AMPICILLIN INJ 1 GM in SODIUM CHL 0.9% 50 ML IV SCH ×2 (03:17→09:25)
[2016-11-20 03:26] LABS: Albumin 2.1 g/dL (3.4-5.0); Alkaline Phosphatase 103 U/L (45-117); Anion Gap 8 (5-15); Aspartate Aminotransferase 32 U/L (15-37); Bilirubin, Total 0.4 mg/dL (0.2-1.0); Carbon Dioxide 27 mmol/L (21-32); Chloride 113 mmol/L (98-107); Cholesterol < 50.0 mg/dL (< 200); GFR African American 35 mL/min; GFR Non-African American 29 mL/min; Glucose 55 mg/dL (74-106); HDL Cholesterol 28 mg/dL (40-59); LDL Cholesterol 30 mg/dL (< 100); Potassium 3.3 mmol/L (3.5-5.1); Sodium 148 mmol/L (136-145); Total Protein 4.9 g/dL (6.4-8.2); Triglycerides 22 mg/dL (< 150)
[2016-11-20 03:38] LABS: Blood Urea Nitrogen 83 mg/dL (7-18)
[2016-11-20] MEDS: InsuLIN REG 1unit/0.01ml Soln (100units/ml) SC SCH ×6 (03:44→20:00)
[2016-11-20] MEDS: ACCU-CHEK COMFORT CURVE STRIP VI SCH ×6 (03:45→20:00)
[2016-11-20 03:49] LABS: INR 1.33 (0.9-1.15); Partial Thromboplastin Time 30.3 sec (22.64-33.71); Prothrombin Time 14.5 sec (9.37-12.3)
[2016-11-20] MEDS ORDERED: DEXTROSE 10% 1,000 ML IV ONE ×2 (04:45→18:30)
[2016-11-20] MEDS: metroNIDAZOLE 500MG/100ML 100 ML IV SCH ×3 (05:37→23:19)
[2016-11-20] MEDS ORDERED: POTASSIUM CHL 20MEQ/100ML 100 ML IV ONE (05:45)
[2016-11-20 08:15] LABS: Base Excess 0.2 mmol/L (-2.0-2.0); Blood 02Sat 97.5 % (96-100); Blood COHb 0.9 % (0.5-1.5); Blood MetHb 0.4 % (0.0-1.5); HCO3 24.2 mmol/L (22-26.0); HHb 2.5 % (0.0-5.0); MODE VENT - A/C; O2Hb 96.2 % (94.0-97.0); PCO2 35.9 mmHg (35.0-45.0); PCO2(T) 35.9 mmHg (35.0-45.0); PO2 124.4 mmHg (80.0-100.0); PO2(T) 124.4 mmHg (80.0-100.0); Sample Type Arterial; pH 7.446 (7.350-7.450)
[2016-11-20 08:30] LABS: Basophils # (auto) 0 uL; Basophils % (auto) 0.6 % (0.0-2.0); Eosinophils # (auto) 0 uL; Eosinophils % (auto) 0.7 % (0.0-7.0); Hematocrit 23.3 % (41.0-53.0); Hemoglobin 8.1 g/dL (13.5-17.5); Lymphocytes # (auto) 1.3 uL; Lymphocytes % (auto) 18.5 % (10.0-50.0); Mean Corpuscular Hgb Conc. 34.8 g/dL (32.0-36.0); Mean Corpuscular Volume 83.5 fL (80.0-100.0); Mean Platelet Volume 7.8 fL (6.9-10.8); Monocytes # (auto) 0.4 uL; Monocytes % (auto) 6.1 % (0.0-12.0); Neutrophils # (auto) 5.3 uL; Neutrophils % (auto) 74.1 % (37.0-80.0); Platelet Count (auto) 78 10^3/uL (140-450); Red Cell Distribution Width 16.2 % (11.8-14.3); White Blood Cell 7.2 10^3/uL (4.4-10.8)
[2016-11-20] MEDS: NOREPINEPHRINE 8 MG/250ML KIT 250 ML IV SCH (09:10)
[2016-11-20] MEDS: PANTOPRAZOLE 40 MG/10 ML VIAL IV SCH (10:00)
[2016-11-20] MEDS: FLUCONAZOLE 200MG/100ML 100 ML IV SCH (10:00)
[2016-11-20] MEDS: DOPamine 1600MCG/ML D5W 250 ML IV SCH ×2 (10:21→23:19)
[2016-11-20] MEDS: LEVOFLOXACIN 500MG 100 ML IV SCH (11:24)
[2016-11-20] MEDS ORDERED: NOREPINEPHRINE 8 MG/250ML KIT 250 ML IV SCH (12:15)
[2016-11-20] MEDS: PIPERACILLIN-TAZOB 2.25GM 50 ML IV SCH ×2 (13:00→21:09)
[2016-11-20] MEDS ORDERED: DEXTROSE 50% SYRINGE 50 ML IV ONE (17:43)
[2016-11-20] MEDS: MIDAZOLAM DRIP 50 mg/50mL 50 ML IV SCH (23:20)
[2016-11-21] VITALS (92 sets, daily range): BP systolic 115–162; BP diastolic 52–84
[2016-11-21] MEDS: InsuLIN REG 1unit/0.01ml Soln (100units/ml) SC SCH ×7 (04:00→23:38)
[2016-11-21] MEDS: ACCU-CHEK COMFORT CURVE STRIP VI SCH ×7 (04:14→23:13)
[2016-11-21 04:55] LABS: INR 1.45 (0.9-1.15); Prothrombin Time 15.9 sec (9.37-12.3)
[2016-11-21 05:03] LABS: Potassium 3.6 mmol/L (3.5-5.1)
[2016-11-21 05:05] LABS: Eosinophils # (auto) 0.1 uL; Hemoglobin 8.4 g/dL (13.5-17.5); Monocytes # (auto) 0.4 uL; Red Cell Distribution Width 16.4 % (11.8-14.3); White Blood Cell 6.7 10^3/uL (4.4-10.8)
[2016-11-21 05:07] LABS: BUN/Creatinine Ratio 35.1; Calcium 7.1 mg/dL (8.5-10.1); Magnesium 2.2 mg/dL (1.6-2.6)
[2016-11-21 05:09] LABS: Basophils # (auto) 0.1 uL; Basophils % (auto) 0.8 % (0.0-2.0); Eosinophils % (auto) 1.3 % (0.0-7.0); Lymphocytes # (auto) 1.2 uL; Lymphocytes % (auto) 17.9 % (10.0-50.0); Mean Corpuscular Hemoglobin 29.3 pg (28.0-32.0); Mean Corpuscular Hgb Conc. 35.2 g/dL (32.0-36.0); Mean Corpuscular Volume 83.3 fL (80.0-100.0); Mean Platelet Volume 8.1 fL (6.9-10.8); Monocytes % (auto) 5.3 % (0.0-12.0); Neutrophils % (auto) 74.7 % (37.0-80.0); Nucleated Red Blood Cells % 0.1 %; Platelet Count (auto) 87 10^3/uL (140-450)
[2016-11-21 05:11] LABS: Bilirubin, Total 0.3 mg/dL (0.2-1.0); Total Protein 4.7 g/dL (6.4-8.2)
[2016-11-21] MEDS: PIPERACILLIN-TAZOB 2.25GM 50 ML IV SCH ×3 (05:12→21:31)
[2016-11-21] MEDS: metroNIDAZOLE 500MG/100ML 100 ML IV SCH ×3 (06:08→23:12)
[2016-11-21 07:36] LABS: Allen Test Yes; Base Excess -1.8 mmol/L (-2.0-2.0); Blood 02Sat 95.8 % (96-100); Blood MetHb 0.3 % (0.0-1.5); HCO3 21.7 mmol/L (22-26.0); HHb 4.2 % (0.0-5.0); MODE VENT - A/C; O2Hb 95.5 % (94.0-97.0); PCO2 32.3 mmHg (35.0-45.0); PCO2(T) 31.6 mmHg (35.0-45.0); PO2 94.3 mmHg (80.0-100.0); PO2(T) 91.4 mmHg (80.0-100.0); Sample Type Arterial; pH 7.446 (7.350-7.450)
[2016-11-21] MEDS: SODIUM CHLORIDE 0.9% 1,000 ML IV SCH ×2 (09:05→17:27)
[2016-11-21] MEDS: PANTOPRAZOLE 40 MG/10 ML VIAL IV SCH (10:07)
[2016-11-21] MEDS: FLUCONAZOLE 200MG/100ML 100 ML IV SCH (10:08)
[2016-11-21] MEDS ORDERED: GOLYTELY 4L KIT PO ONE (10:45)
[2016-11-21] MEDS: MIDAZOLAM DRIP 50 mg/50mL 50 ML IV SCH (11:34)
[2016-11-22] VITALS (104 sets, daily range): BP systolic 93–168; BP diastolic 45–93
[2016-11-22] MEDS: MIDAZOLAM DRIP 50 mg/50mL 50 ML IV SCH ×3 (00:09→23:13)
[2016-11-22] MEDS: DOPamine 1600MCG/ML D5W 250 ML IV SCH ×2 (02:03→21:35)
[2016-11-22] MEDS: ACCU-CHEK COMFORT CURVE STRIP VI SCH ×5 (04:00→20:00)
[2016-11-22] MEDS: InsuLIN REG 1unit/0.01ml Soln (100units/ml) SC SCH ×5 (04:00→20:00)
[2016-11-22 04:47] LABS: Basophils # (auto) 0.1 uL; Basophils % (auto) 0.9 % (0.0-2.0); Eosinophils # (auto) 0.1 uL; Eosinophils % (auto) 2.1 % (0.0-7.0); Hematocrit 27.6 % (41.0-53.0); Hemoglobin 9.6 g/dL (13.5-17.5); Lymphocytes # (auto) 1.3 uL; Lymphocytes % (auto) 19.9 % (10.0-50.0); Mean Corpuscular Hemoglobin 29.1 pg (28.0-32.0); Mean Corpuscular Hgb Conc. 34.9 g/dL (32.0-36.0); Mean Corpuscular Volume 83.5 fL (80.0-100.0); Mean Platelet Volume 7.7 fL (6.9-10.8); Monocytes # (auto) 0.2 uL; Monocytes % (auto) 3.7 % (0.0-12.0); Neutrophils # (auto) 4.6 uL; Neutrophils % (auto) 73.4 % (37.0-80.0); Platelet Count (auto) 94 10^3/uL (140-450); White Blood Cell 6.3 10^3/uL (4.4-10.8)
[2016-11-22] MEDS: SODIUM CHLORIDE 0.9% 1,000 ML IV SCH ×2 (05:05→13:42)
[2016-11-22 05:06] LABS: INR 1.55 (0.9-1.15)
[2016-11-22 05:10] LABS: Albumin 1.8 g/dL (3.4-5.0); BUN/Creatinine Ratio 30.1; Magnesium 2.1 mg/dL (1.6-2.6); Potassium 3.5 mmol/L (3.5-5.1)
[2016-11-22 05:13] LABS: Bilirubin, Total 0.4 mg/dL (0.2-1.0); Total Protein 4.9 g/dL (6.4-8.2)
[2016-11-22] MEDS: PIPERACILLIN-TAZOB 2.25GM 50 ML IV SCH ×3 (05:14→20:44)
[2016-11-22] MEDS: metroNIDAZOLE 500MG/100ML 100 ML IV SCH ×3 (07:04→23:00)
[2016-11-22] MEDS ORDERED: diphenhdrAMINE HCL 50 MG/1 ML VL ONE (08:06)
[2016-11-22] MEDS ORDERED: SODIUM CHLORIDE LOCK 0 ML ONE (08:06)
[2016-11-22] MEDS ORDERED: MIDAZOLAM HCL 5 MG/ML-1ML VIAL ONE (08:06)
[2016-11-22] MEDS ORDERED: fentaNYL CITRATE 100 MCG/2 ML VL ONE (08:07)
[2016-11-22 08:54] LABS: Allen Test Yes; Base Excess -1.3 mmol/L (-2.0-2.0); Blood 02Sat 92.4 % (96-100); Blood MetHb 0.3 % (0.0-1.5); HCO3 21.1 mmol/L (22-26.0); HHb 7.6 % (0.0-5.0); MODE VENT - A/C; O2Hb 92.1 % (94.0-97.0); PCO2 27.4 mmHg (35.0-45.0); PCO2(T) 26.8 mmHg (35.0-45.0); PO2 66.4 mmHg (80.0-100.0); PO2(T) 64.2 mmHg (80.0-100.0); Sample Type Arterial; pH 7.504 (7.350-7.450)
[2016-11-22] MEDS: PANTOPRAZOLE 40 MG/10 ML VIAL IV SCH (10:01)
[2016-11-22] MEDS: FLUCONAZOLE 200MG/100ML 100 ML IV SCH (10:05)
[2016-11-22] MEDS ORDERED: EPINEPHrine HCL 1 MG/10 ML SYRG ONE (13:04)
[2016-11-23] VITALS (104 sets, daily range): BP systolic 109–166; BP diastolic 51–83
[2016-11-23] MEDS: SODIUM CHLORIDE 0.9% 1,000 ML IV SCH (03:00)
[2016-11-23 03:41] LABS: Basophils # (auto) 0 uL; Basophils % (auto) 0.9 % (0.0-2.0); Eosinophils # (auto) 0.1 uL; Eosinophils % (auto) 1.7 % (0.0-7.0); Hematocrit 24.6 % (41.0-53.0); Hemoglobin 8.4 g/dL (13.5-17.5); Lymphocytes # (auto) 1.3 uL; Lymphocytes % (auto) 26.9 % (10.0-50.0); Mean Corpuscular Hemoglobin 28.9 pg (28.0-32.0); Mean Corpuscular Hgb Conc. 34.2 g/dL (32.0-36.0); Mean Corpuscular Volume 84.3 fL (80.0-100.0); Mean Platelet Volume 7.3 fL (6.9-10.8); Monocytes # (auto) 0.2 uL; Neutrophils # (auto) 3.2 uL; Neutrophils % (auto) 65.5 % (37.0-80.0); Nucleated Red Blood Cells % 0.1 %; Platelet Count (auto) 96 10^3/uL (140-450); Red Cell Distribution Width 16.8 % (11.8-14.3); White Blood Cell 4.9 10^3/uL (4.4-10.8)
[2016-11-23 03:56] LABS: BUN/Creatinine Ratio 29.9; Calcium 7.3 mg/dL (8.5-10.1); Potassium 3.4 mmol/L (3.5-5.1)
[2016-11-23] MEDS: InsuLIN REG 1unit/0.01ml Soln (100units/ml) SC SCH ×6 (04:00→20:00)
[2016-11-23] MEDS: ACCU-CHEK COMFORT CURVE STRIP VI SCH ×6 (04:00→20:00)
[2016-11-23] MEDS: PIPERACILLIN-TAZOB 2.25GM 50 ML IV SCH ×3 (05:12→21:00)
[2016-11-23] MEDS: metroNIDAZOLE 500MG/100ML 100 ML IV SCH (07:13)
[2016-11-23] MEDS: MIDAZOLAM DRIP 50 mg/50mL 50 ML IV SCH ×2 (08:33→18:21)
[2016-11-23 09:22] LABS: Allen Test Yes; Base Excess -0.2 mmol/L (-2.0-2.0); Blood 02Sat 95.7 % (96-100); Blood COHb 0.3 % (0.5-1.5); Blood MetHb 0.5 % (0.0-1.5); HHb 4.3 % (0.0-5.0); MODE VENT - A/C; O2Hb 94.9 % (94.0-97.0); PCO2 26.6 mmHg (35.0-45.0); PCO2(T) 26.6 mmHg (35.0-45.0); PO2 84.6 mmHg (80.0-100.0); PO2(T) 84.6 mmHg (80.0-100.0); Sample Type Arterial; pH 7.535 (7.350-7.450)
[2016-11-23] MEDS: PANTOPRAZOLE 40 MG/10 ML VIAL IV SCH (10:32)
[2016-11-23] MEDS: FLUCONAZOLE 200MG/100ML 100 ML IV SCH (10:32)
[2016-11-23] MEDS ORDERED: Diabetisource AC 1 Liter GT SCH (13:00)
[2016-11-23] MEDS: DOPamine 1600MCG/ML D5W 250 ML IV SCH (17:45)
[2016-11-24] VITALS (99 sets, daily range): BP systolic 95–189; BP diastolic 41–82
[2016-11-24] MEDS: MIDAZOLAM DRIP 50 mg/50mL 50 ML IV SCH ×3 (02:58→14:48)
[2016-11-24 03:46] LABS: Basophils # (auto) 0.1 uL; Basophils % (auto) 1.2 % (0.0-2.0); Eosinophils # (auto) 0.1 uL; Eosinophils % (auto) 1.2 % (0.0-7.0); Hematocrit 25.9 % (41.0-53.0); Hemoglobin 8.8 g/dL (13.5-17.5); Lymphocytes # (auto) 1.3 uL; Mean Corpuscular Hemoglobin 28.8 pg (28.0-32.0); Mean Corpuscular Hgb Conc. 34.1 g/dL (32.0-36.0); Mean Corpuscular Volume 84.4 fL (80.0-100.0); Mean Platelet Volume 7.2 fL (6.9-10.8); Monocytes # (auto) 0.2 uL; Monocytes % (auto) 4.1 % (0.0-12.0); Neutrophils # (auto) 3.5 uL; Neutrophils % (auto) 68.5 % (37.0-80.0); Nucleated Red Blood Cells % 0.1 %; Platelet Count (auto) 100 10^3/uL (140-450); Red Cell Distribution Width 16.9 % (11.8-14.3); White Blood Cell 5.1 10^3/uL (4.4-10.8)
[2016-11-24] MEDS: ACCU-CHEK COMFORT CURVE STRIP VI SCH ×6 (04:00→20:00)
[2016-11-24] MEDS: InsuLIN REG 1unit/0.01ml Soln (100units/ml) SC SCH ×6 (04:00→21:45)
[2016-11-24 04:12] LABS: Albumin 1.6 g/dL (3.4-5.0); BUN/Creatinine Ratio 27.1; Bilirubin, Total 0.4 mg/dL (0.2-1.0); Potassium 3.3 mmol/L (3.5-5.1); Total Protein 4.8 g/dL (6.4-8.2)
[2016-11-24] MEDS: PIPERACILLIN-TAZOB 2.25GM 50 ML IV SCH ×3 (05:00→21:00)
[2016-11-24 07:57] LABS: Allen Test No; Base Excess -1.6 mmol/L (-2.0-2.0); Blood 02Sat 97.3 % (96-100); Blood COHb 0.3 % (0.5-1.5); Blood MetHb 0.3 % (0.0-1.5); HCO3 21.4 mmol/L (22-26.0); HHb 2.7 % (0.0-5.0); MODE VENT - A/C; O2Hb 96.7 % (94.0-97.0); PCO2 29.6 mmHg (35.0-45.0); PCO2(T) 29.6 mmHg (35.0-45.0); PIP 19; PO2 126.1 mmHg (80.0-100.0); PO2(T) 126.1 mmHg (80.0-100.0); Sample Type Arterial; pH 7.476 (7.350-7.450)
[2016-11-24] MEDS: PANTOPRAZOLE 40 MG/10 ML VIAL IV SCH (09:48)
[2016-11-24] MEDS: FLUCONAZOLE 200MG/100ML 100 ML IV SCH (09:49)
[2016-11-24] MEDS: DOPamine 1600MCG/ML D5W 250 ML IV SCH (09:50)
[2016-11-24] MEDS ORDERED: FUROSEMIDE 40 MG/4 ML VIAL IV ONE (12:30)
[2016-11-25] VITALS (78 sets, daily range): BP systolic 113–169; BP diastolic 57–83
[2016-11-25] MEDS: InsuLIN REG 1unit/0.01ml Soln (100units/ml) SC SCH ×5 (04:00→18:00)
[2016-11-25] MEDS: ACCU-CHEK COMFORT CURVE STRIP VI SCH ×5 (04:00→18:00)
[2016-11-25 04:16] LABS: Basophils # (auto) 0 uL; Basophils % (auto) 0.7 % (0.0-2.0); Eosinophils # (auto) 0.1 uL; Eosinophils % (auto) 1.5 % (0.0-7.0); Hematocrit 24.1 % (41.0-53.0); Hemoglobin 8.3 g/dL (13.5-17.5); Lymphocytes # (auto) 1.3 uL; Lymphocytes % (auto) 22.3 % (10.0-50.0); Mean Corpuscular Hemoglobin 29.2 pg (28.0-32.0); Mean Corpuscular Hgb Conc. 34.5 g/dL (32.0-36.0); Mean Corpuscular Volume 84.6 fL (80.0-100.0); Mean Platelet Volume 7.2 fL (6.9-10.8); Monocytes # (auto) 0.2 uL; Monocytes % (auto) 4.1 % (0.0-12.0); Neutrophils # (auto) 4.1 uL; Neutrophils % (auto) 71.4 % (37.0-80.0); Nucleated Red Blood Cells % 0.1 %; White Blood Cell 5.8 10^3/uL (4.4-10.8)
[2016-11-25 04:18] LABS: Platelet Count (auto) 97 10^3/uL (140-450)
[2016-11-25 04:19] LABS: Potassium 3.3 mmol/L (3.5-5.1)
[2016-11-25 04:27] LABS: Albumin 1.6 g/dL (3.4-5.0); BUN/Creatinine Ratio 24.5; Calcium 7.2 mg/dL (8.5-10.1)
[2016-11-25 04:29] LABS: Bilirubin, Total 0.4 mg/dL (0.2-1.0); Total Protein 4.7 g/dL (6.4-8.2)
[2016-11-25] MEDS: PIPERACILLIN-TAZOB 2.25GM 50 ML IV SCH ×3 (05:13→21:10)
[2016-11-25] MEDS: DOPamine 1600MCG/ML D5W 250 ML IV SCH (09:27)
[2016-11-25] MEDS: FLUCONAZOLE 200MG/100ML 100 ML IV SCH (11:29)
[2016-11-25] MEDS: FUROSEMIDE 40 MG/4 ML VIAL IV SCH (11:30)
[2016-11-25] MEDS: PANTOPRAZOLE 40 MG/10 ML VIAL IV SCH (11:30)
[2016-11-25] MEDS ORDERED: POTASSIUM CHL 10% (20 MEQ/15ML) 15ml ORAL SOLN GT ONE (12:30)
[2016-11-25] MEDS: LORazepam 2MG/ML-1ML VIAL IV PRN ×2 (14:43→22:32)
[2016-11-26] VITALS (37 sets, daily range): BP systolic 111–161; BP diastolic 54–83
[2016-11-26] MEDS: InsuLIN REG 1unit/0.01ml Soln (100units/ml) SC SCH ×5 (00:41→23:57)
[2016-11-26 04:14] LABS: Potassium 3.4 mmol/L (3.5-5.1)
[2016-11-26 04:21] LABS: BUN/Creatinine Ratio 23.2
[2016-11-26] MEDS: PIPERACILLIN-TAZOB 2.25GM 50 ML IV SCH ×3 (04:55→20:43)
[2016-11-26] MEDS: ACCU-CHEK COMFORT CURVE STRIP VI SCH ×5 (06:00→23:57)
[2016-11-26 09:16] LABS: Allen Test No; Base Excess -3.3 mmol/L (-2.0-2.0); Blood 02Sat 97.2 % (96-100); Blood COHb 0.3 % (0.5-1.5); Blood MetHb 0.7 % (0.0-1.5); HCO3 20.7 mmol/L (22-26.0); HHb 2.8 % (0.0-5.0); MODE VENT - CPAP; O2Hb 96.2 % (94.0-97.0); PCO2 32.7 mmHg (35.0-45.0); PCO2(T) 32.7 mmHg (35.0-45.0); PO2 124.9 mmHg (80.0-100.0); PO2(T) 124.9 mmHg (80.0-100.0); Pressure Support 8; Sample Type Arterial
[2016-11-26] MEDS: FLUCONAZOLE 200MG/100ML 100 ML IV SCH (09:43)
[2016-11-26] MEDS: PANTOPRAZOLE 40 MG/10 ML VIAL IV SCH (09:43)
[2016-11-26] MEDS: FUROSEMIDE 40 MG/4 ML VIAL IV SCH (09:43)
[2016-11-26] MEDS ORDERED: POTASSIUM CHL 20 Meq TABLET PO ONE (15:00)
[2016-11-26] MEDS ORDERED: POTASSIUM CHL 10% (20 MEQ/15ML) 15ml ORAL SOLN PO ONE (17:30)
[2016-11-27] VITALS (37 sets, daily range): BP systolic 100–132; BP diastolic 50–78
[2016-11-27 04:49] LABS: Basophils # (auto) 0 uL; Basophils % (auto) 0.5 % (0.0-2.0); Eosinophils # (auto) 0 uL; Eosinophils % (auto) 0.5 % (0.0-7.0); Hematocrit 25.1 % (41.0-53.0); Hemoglobin 8.5 g/dL (13.5-17.5); Lymphocytes # (auto) 1.4 uL; Lymphocytes % (auto) 24.6 % (10.0-50.0); Mean Corpuscular Hemoglobin 29.3 pg (28.0-32.0); Mean Corpuscular Hgb Conc. 33.8 g/dL (32.0-36.0); Mean Corpuscular Volume 86.9 fL (80.0-100.0); Mean Platelet Volume 7.7 fL (6.9-10.8); Monocytes # (auto) 0.2 uL; Monocytes % (auto) 3.3 % (0.0-12.0); Neutrophils % (auto) 71.1 % (37.0-80.0); Nucleated Red Blood Cells % 0.1 %; Red Cell Distribution Width 17.9 % (11.8-14.3); White Blood Cell 5.6 10^3/uL (4.4-10.8)
[2016-11-27 04:52] LABS: Platelet Count (auto) 68 10^3/uL (140-450)
[2016-11-27 05:15] LABS: BUN/Creatinine Ratio 23.9; Calcium 7.1 mg/dL (8.5-10.1); Potassium 3.8 mmol/L (3.5-5.1)
[2016-11-27] MEDS: PIPERACILLIN-TAZOB 2.25GM 50 ML IV SCH ×3 (05:21→20:56)
[2016-11-27] MEDS: InsuLIN REG 1unit/0.01ml Soln (100units/ml) SC SCH ×3 (05:21→17:53)
[2016-11-27] MEDS: ACCU-CHEK COMFORT CURVE STRIP VI SCH ×3 (05:22→17:53)
[2016-11-27] MEDS: PANTOPRAZOLE 40 MG/10 ML VIAL IV SCH (09:58)
[2016-11-27] MEDS: FLUCONAZOLE 200MG/100ML 100 ML IV SCH (09:58)
[2016-11-27] MEDS ORDERED: FUROSEMIDE 20 MG TAB PO SCH (10:00)
[2016-11-27] MEDS ORDERED: FUROSEMIDE 40 MG TAB PO SCH (10:00)
[2016-11-27] MEDS ORDERED: MORPHINE SULF INJ 2 MG/ML SYRINGE 1ML IV PRN (12:15)
[2016-11-27] MEDS: Boost Glucose Control 8 Ounces PO SCH (17:53)
[2016-11-28] VITALS (80 sets, daily range): BP systolic 83–147; BP diastolic 39–95
[2016-11-28] MEDS: ACCU-CHEK COMFORT CURVE STRIP VI SCH ×4 (00:07→18:01)
[2016-11-28] MEDS: DEXTROSE (50%) 50ML SYRG IV PRN ×2 (00:08→21:05)
[2016-11-28 04:45] LABS: BUN/Creatinine Ratio 26.4; Calcium 7.2 mg/dL (8.5-10.1); Potassium 4.1 mmol/L (3.5-5.1)
[2016-11-28] MEDS: PIPERACILLIN-TAZOB 2.25GM 50 ML IV SCH ×3 (05:16→20:44)
[2016-11-28] MEDS: InsuLIN REG 1unit/0.01ml Soln (100units/ml) SC SCH ×4 (06:00→18:34)
[2016-11-28] MEDS: Boost Glucose Control 8 Ounces PO SCH ×3 (08:00→18:00)
[2016-11-28] MEDS ORDERED: ETOMIDATE (2MG/ML) 20ML VIAL IV ONE (08:52)
[2016-11-28] MEDS ORDERED: ROCURONIUM 10MG/ML 10ML VIAL IV ONE (08:53)
[2016-11-28] MEDS ORDERED: SUCCINYLCHOLINE CHLORIDE 20 MG/ML 10ML VIAL IV ONE (08:53)
[2016-11-28 08:55] LABS: Base Excess -8.1 mmol/L (-2.0-2.0); Blood 02Sat 94.4 % (96-100); Blood COHb 0.3 % (0.5-1.5); Blood MetHb 0.3 % (0.0-1.5); HCO3 24.3 mmol/L (22-26.0); HHb 5.6 % (0.0-5.0); MODE NASAL CANNULA; O2Hb 93.8 % (94.0-97.0); PCO2(T) 96.7 mmHg (35.0-45.0); PO2 94.2 mmHg (80.0-100.0); PO2(T) 88.6 mmHg (80.0-100.0); Sample Type Arterial
[2016-11-28] MEDS ORDERED: NOREPINEPHRINE 8 MG/250ML KIT 250 ML IV ONE (08:56)
[2016-11-28] MEDS ORDERED: MIDAZOLAM DRIP 50 mg/50mL 50 ML IV ONE (09:00)
[2016-11-28] MEDS: NOREPINEPHRINE 8 MG/250ML KIT 250 ML IV SCH (09:10)
[2016-11-28] MEDS: MIDAZOLAM DRIP 50 mg/50mL 50 ML IV SCH (09:53)
[2016-11-28] MEDS ORDERED: NOREPINEPHRINE 8 MG/250ML KIT 250 ML IV SCH (09:53)
[2016-11-28] MEDS: FLUCONAZOLE 200MG/100ML 100 ML IV SCH (11:38)
[2016-11-28] MEDS: PANTOPRAZOLE 40 MG/10 ML VIAL IV SCH (11:39)
[2016-11-28 12:33] LABS: Basophils # (auto) 0 uL; Basophils % (auto) 0.1 % (0.0-2.0); Eosinophils # (auto) 0 uL; Hematocrit 29.1 % (41.0-53.0); Hemoglobin 9.5 g/dL (13.5-17.5); Lymphocytes # (auto) 0.5 uL; Lymphocytes % (auto) 9.6 % (10.0-50.0); Mean Corpuscular Hemoglobin 29.4 pg (28.0-32.0); Mean Corpuscular Hgb Conc. 32.8 g/dL (32.0-36.0); Mean Corpuscular Volume 89.4 fL (80.0-100.0); Mean Platelet Volume 8.7 fL (6.9-10.8); Monocytes # (auto) 0.2 uL; Monocytes % (auto) 3.2 % (0.0-12.0); Neutrophils # (auto) 4.5 uL; Neutrophils % (auto) 87.1 % (37.0-80.0); Nucleated Red Blood Cells % 0.2 %; Platelet Count (auto) 70 10^3/uL (140-450); Red Cell Distribution Width 17.8 % (11.8-14.3); White Blood Cell 5.2 10^3/uL (4.4-10.8)
[2016-11-28 12:50] LABS: Base Excess -4.4 mmol/L (-2.0-2.0); Blood 02Sat 96.7 % (96-100); Blood COHb 0.3 % (0.5-1.5); Blood MetHb 0.4 % (0.0-1.5); HCO3 20.8 mmol/L (22-26.0); HHb 3.3 % (0.0-5.0); MODE VENT - A/C; PCO2 38.6 mmHg (35.0-45.0); PCO2(T) 38.6 mmHg (35.0-45.0); PO2 96.4 mmHg (80.0-100.0); PO2(T) 96.4 mmHg (80.0-100.0); Sample Type Arterial
[2016-11-28] MEDS ORDERED: FUROSEMIDE 40 MG/4 ML VIAL IV ONE ×2 (16:15→18:45)
[2016-11-28] MEDS ORDERED: Diabetisource AC 1 Liter GT SCH (21:15)
[2016-11-28 22:46] LABS: Calcium 6.9 mg/dL (8.5-10.1); Potassium 4.1 mmol/L (3.5-5.1)
[2016-11-29] VITALS (100 sets, daily range): BP systolic 115–134; BP diastolic 58–74
[2016-11-29] MEDS: ACCU-CHEK COMFORT CURVE STRIP VI SCH ×4 (00:01→18:00)
[2016-11-29] MEDS: MIDAZOLAM DRIP 50 mg/50mL 50 ML IV SCH ×2 (02:57→15:00)
[2016-11-29 04:04] LABS: Basophils # (auto) 0 uL; Eosinophils # (auto) 0 uL; Hemoglobin 7.2 g/dL (13.5-17.5); Neutrophils # (auto) 3.8 uL
[2016-11-29 04:07] LABS: Basophils % (auto) 0.2 % (0.0-2.0); Eosinophils % (auto) 0.1 % (0.0-7.0); Hematocrit 21.3 % (41.0-53.0); Lymphocytes % (auto) 20.3 % (10.0-50.0); Mean Corpuscular Hemoglobin 29.4 pg (28.0-32.0); Mean Corpuscular Hgb Conc. 33.9 g/dL (32.0-36.0); Mean Corpuscular Volume 86.9 fL (80.0-100.0); Mean Platelet Volume 8.5 fL (6.9-10.8); Monocytes # (auto) 0.2 uL; Neutrophils % (auto) 76.4 % (37.0-80.0); Nucleated Red Blood Cells % 0.1 %; Platelet Count (auto) 54 10^3/uL (140-450); Red Cell Distribution Width 18.2 % (11.8-14.3)
[2016-11-29 04:57] LABS: B-Type Natriuretic Peptide > 5000.00 pg/mL (0-100)
[2016-11-29 05:06] LABS: Temperature: 23.3 C (20.0-25.0)
[2016-11-29] MEDS: PIPERACILLIN-TAZOB 2.25GM 50 ML IV SCH ×3 (05:20→21:00)
[2016-11-29] MEDS: InsuLIN REG 1unit/0.01ml Soln (100units/ml) SC SCH ×4 (06:00→18:00)
[2016-11-29] MEDS: Boost Glucose Control 8 Ounces PO SCH ×3 (08:00→18:00)
[2016-11-29 08:25] LABS: Base Excess -2.7 mmol/L (-2.0-2.0); Blood 02Sat 97.8 % (96-100); Blood MetHb 0.6 % (0.0-1.5); HCO3 20.6 mmol/L (22-26.0); HHb 2.2 % (0.0-5.0); IE RATIO 1.2.4; MODE VENT - A/C; O2Hb 97.2 % (94.0-97.0); PCO2 29.8 mmHg (35.0-45.0); PCO2(T) 29.8 mmHg (35.0-45.0); PIP 20; Sample Type Arterial; Spont Vt 431; pH 7.458 (7.350-7.450)
[2016-11-29] MEDS: NOREPINEPHRINE 8 MG/250ML KIT 250 ML IV SCH (09:10)
[2016-11-29] MEDS: PANTOPRAZOLE 40 MG/10 ML VIAL IV SCH (10:26)
[2016-11-29] MEDS: FLUCONAZOLE 200MG/100ML 100 ML IV SCH (10:27)
[2016-11-29 19:12] LABS: Urine Bilirubin Negative (Negative); Urine Blood Negative /uL (Negative); Urine Color Yellow (Yellow); Urine Glucose Normal (Normal); Urine Ketone Negative (Negative); Urine Mucus FEW (None Seen); Urine Nitrite Negative (Negative); Urine RBC 5 /hpf (0 - 3); Urine Squamous Epithelial Cell FEW /hpf (<5); Urine Urobilinogen Normal (Negative); Urine WBC Clumps PRESENT /hpf (None Seen); Urine pH 5.5 (5.0-8.0)
[2016-11-30] VITALS (101 sets, daily range): BP systolic 111–159; BP diastolic 60–90
[2016-11-30] MEDS: ACCU-CHEK COMFORT CURVE STRIP VI SCH ×4 (01:30→18:00)
[2016-11-30] MEDS: InsuLIN REG 1unit/0.01ml Soln (100units/ml) SC SCH ×4 (01:30→18:00)
[2016-11-30 04:38] LABS: Eosinophils # (auto) 0 uL; Eosinophils % (auto) 0.4 % (0.0-7.0); Hemoglobin 7.1 g/dL (13.5-17.5); Lymphocytes # (auto) 1.6 uL; Monocytes # (auto) 0.2 uL; Neutrophils # (auto) 2.9 uL; White Blood Cell 4.7 10^3/uL (4.4-10.8)
[2016-11-30 04:39] LABS: Basophils # (auto) 0 uL; Basophils % (auto) 0.9 % (0.0-2.0); Lymphocytes % (auto) 33.3 % (10.0-50.0); Mean Corpuscular Hemoglobin 29.4 pg (28.0-32.0); Mean Corpuscular Hgb Conc. 33.8 g/dL (32.0-36.0); Mean Platelet Volume 8.6 fL (6.9-10.8); Monocytes % (auto) 3.2 % (0.0-12.0); Neutrophils % (auto) 62.2 % (37.0-80.0); Nucleated Red Blood Cells % 0.2 %; Platelet Count (auto) 69 10^3/uL (140-450); Red Cell Distribution Width 18.5 % (11.8-14.3)
[2016-11-30 04:58] LABS: Albumin 1.6 g/dL (3.4-5.0); Calcium 6.7 mg/dL (8.5-10.1); Potassium 4.2 mmol/L (3.5-5.1)
[2016-11-30] MEDS: PIPERACILLIN-TAZOB 2.25GM 50 ML IV SCH ×3 (05:00→21:22)
[2016-11-30 05:01] LABS: BUN/Creatinine Ratio 27.4; Bilirubin, Total 0.3 mg/dL (0.2-1.0); Total Protein 4.8 g/dL (6.4-8.2)
[2016-11-30 07:55] LABS: Allen Test Yes; Blood 02Sat 97.4 % (96-100); Blood COHb 0.2 % (0.5-1.5); Blood MetHb 0.5 % (0.0-1.5); HCO3 19.7 mmol/L (22-26.0); HHb 2.6 % (0.0-5.0); MODE VENT - A/C; O2Hb 96.7 % (94.0-97.0); PCO2 27.3 mmHg (35.0-45.0); PCO2(T) 27.3 mmHg (35.0-45.0); PO2 135.7 mmHg (80.0-100.0); PO2(T) 135.7 mmHg (80.0-100.0); Sample Type Arterial; pH 7.477 (7.350-7.450)
[2016-11-30] MEDS: Boost Glucose Control 8 Ounces PO SCH ×3 (08:00→18:00)
[2016-11-30] MEDS: FLUCONAZOLE 100 MG TAB PO SCH (10:20)
[2016-11-30] MEDS: PANTOPRAZOLE 40 MG/10 ML VIAL IV SCH (10:20)
[2016-11-30] MEDS: FREE WATER GT SCH ×3 (12:30→18:15)
[2016-11-30] MEDS: MIDAZOLAM DRIP 50 mg/50mL 50 ML IV SCH (18:15)
[2016-11-30] MEDS: Diabetisource AC 1 Liter GT SCH (18:35)
[2016-12-01] VITALS (101 sets, daily range): BP systolic 131–174; BP diastolic 54–99
[2016-12-01 03:33] LABS: Basophils # (auto) 0 uL; Eosinophils # (auto) 0 uL; Eosinophils % (auto) 0.9 % (0.0-7.0); Hemoglobin 10.2 g/dL (13.5-17.5); Monocytes # (auto) 0.2 uL; Monocytes % (auto) 4.1 % (0.0-12.0); Nucleated Red Blood Cells % 0.1 %; White Blood Cell 4.3 10^3/uL (4.4-10.8)
[2016-12-01 03:37] LABS: Basophils % (auto) 0.9 % (0.0-2.0); Hematocrit 29.9 % (41.0-53.0); Lymphocytes % (auto) 23.1 % (10.0-50.0); Mean Corpuscular Hemoglobin 29.3 pg (28.0-32.0); Mean Corpuscular Hgb Conc. 34.1 g/dL (32.0-36.0); Mean Corpuscular Volume 85.9 fL (80.0-100.0); Mean Platelet Volume 8.4 fL (6.9-10.8); Neutrophils # (auto) 3.1 uL; Platelet Count (auto) 58 10^3/uL (140-450); Red Cell Distribution Width 16.6 % (11.8-14.3)
[2016-12-01 03:52] LABS: BUN/Creatinine Ratio 30.2; Calcium 6.6 mg/dL (8.5-10.1); Potassium 3.8 mmol/L (3.5-5.1)
[2016-12-01] MEDS: PIPERACILLIN-TAZOB 2.25GM 50 ML IV SCH ×2 (05:12→12:56)
[2016-12-01] MEDS: FREE WATER GT SCH ×3 (06:00→18:25)
[2016-12-01] MEDS: InsuLIN REG 1unit/0.01ml Soln (100units/ml) SC SCH ×4 (06:00→18:25)
[2016-12-01] MEDS: ACCU-CHEK COMFORT CURVE STRIP VI SCH ×4 (06:20→18:17)
[2016-12-01] MEDS: MIDAZOLAM DRIP 50 mg/50mL 50 ML IV SCH ×3 (07:29→22:22)
[2016-12-01 07:31] LABS: Allen Test Yes; Base Excess -6.3 mmol/L (-2.0-2.0); Blood 02Sat 97.6 % (96-100); Blood COHb 0.3 % (0.5-1.5); Blood MetHb 0.3 % (0.0-1.5); HCO3 17.2 mmol/L (22-26.0); HHb 2.4 % (0.0-5.0); MODE VENT - A/C; PCO2 27.9 mmHg (35.0-45.0); PCO2(T) 26.7 mmHg (35.0-45.0); PO2 133.2 mmHg (80.0-100.0); PO2(T) 127.2 mmHg (80.0-100.0); Sample Type Arterial; pH 7.407 (7.350-7.450)
[2016-12-01] MEDS ORDERED: MIDAZOLAM DRIP 50 mg/50mL 50 ML IV SCH ×2 (09:58→10:30)
[2016-12-01] MEDS ORDERED: ETOMIDATE (2MG/ML) 20ML VIAL IV ONE (10:00)
[2016-12-01] MEDS: D5W 5% 1,000 ML IV SCH ×2 (10:01→22:20)
[2016-12-01] MEDS: FLUCONAZOLE 100 MG TAB PO SCH (10:02)
[2016-12-01] MEDS: PANTOPRAZOLE 40 MG/10 ML VIAL IV SCH (10:02)
[2016-12-01] MEDS ORDERED: DEXTROSE (50%) 50ML SYRG IV PRN (14:00)
[2016-12-01] MEDS ORDERED: NITROGLYCERIN 0.4 MG SL TAB SL PRN (14:00)
[2016-12-01] MEDS ORDERED: FLUCONAZOLE 200MG/100ML 100 ML IV ONE (14:15)
[2016-12-01] MEDS ORDERED: CeftoloZANE-TAZOB 0.375 GM in D5W 5% 100 ML IV ONE (14:30)
[2016-12-01] MEDS: ALBUMIN 25% 100 ML IV SCH ×2 (16:18→22:03)
[2016-12-01] MEDS: CeftoloZANE-TAZOB 0.375 GM in D5W 5% 100 ML IV SCH (22:21)
[2016-12-02] VITALS (98 sets, daily range): BP systolic 116–137; BP diastolic 63–93
[2016-12-02] MEDS: ACCU-CHEK COMFORT CURVE STRIP VI SCH ×4 (00:30→18:10)
[2016-12-02] MEDS: FREE WATER GT SCH ×4 (00:31→18:39)
[2016-12-02] MEDS: Diabetisource AC 1 Liter GT SCH (03:57)
[2016-12-02] MEDS: ALBUMIN 25% 100 ML IV SCH ×2 (05:15→13:21)
[2016-12-02 05:36] LABS: Potassium 3.8 mmol/L (3.5-5.1)
[2016-12-02 05:37] LABS: BUN/Creatinine Ratio 29.9; Calcium 6.4 mg/dL (8.5-10.1)
[2016-12-02] MEDS: InsuLIN REG 1unit/0.01ml Soln (100units/ml) SC SCH ×4 (06:00→18:10)
[2016-12-02] MEDS: CeftoloZANE-TAZOB 0.375 GM in D5W 5% 100 ML IV SCH ×3 (06:15→22:00)
[2016-12-02] MEDS: MIDAZOLAM DRIP 50 mg/50mL 50 ML IV SCH ×4 (06:19→20:57)
[2016-12-02] MEDS: FLUCONAZOLE 200MG/100ML 100 ML IV SCH (10:12)
[2016-12-02] MEDS: PANTOPRAZOLE 40 MG/10 ML VIAL IV SCH (10:12)
[2016-12-02] MEDS ORDERED: LORazepam 2MG/ML-1ML VIAL IV PRN (11:30)
[2016-12-02] MEDS ORDERED: Novasource Renal 1 Liter GT SCH (15:15)
[2016-12-02] MEDS: D5W 5% 1,000 ML IV SCH (16:39)
[2016-12-03] VITALS (104 sets, daily range): BP systolic 111–128; BP diastolic 61–82
[2016-12-03] MEDS: FREE WATER GT SCH ×6 (00:18→22:00)
[2016-12-03] MEDS: D5W 5% 1,000 ML IV SCH ×2 (01:00→08:34)
[2016-12-03 04:00] LABS: BUN/Creatinine Ratio 30.6; Calcium 6.4 mg/dL (8.5-10.1); Potassium 3.7 mmol/L (3.5-5.1)
[2016-12-03] MEDS: InsuLIN REG 1unit/0.01ml Soln (100units/ml) SC SCH ×4 (06:00→17:47)
[2016-12-03] MEDS: CeftoloZANE-TAZOB 0.375 GM in D5W 5% 100 ML IV SCH ×3 (06:21→22:00)
[2016-12-03] MEDS: ACCU-CHEK COMFORT CURVE STRIP VI SCH ×4 (06:26→17:47)
[2016-12-03 07:30] LABS: Allen Test No; Base Excess -6.2 mmol/L (-2.0-2.0); Blood 02Sat 85.2 % (96-100); Blood MetHb 0.5 % (0.0-1.5); HCO3 17.3 mmol/L (22-26.0); HHb 14.7 % (0.0-5.0); MODE VENT - A/C; O2Hb 84.8 % (94.0-97.0); PCO2 27.9 mmHg (35.0-45.0); PCO2(T) 26.7 mmHg (35.0-45.0); PO2 50.2 mmHg (80.0-100.0); PO2(T) 46.8 mmHg (80.0-100.0); Sample Type Arterial; pH 7.411 (7.350-7.450)
[2016-12-03] MEDS: PRO-STAT 64 30ML GT SCH (09:41)
[2016-12-03] MEDS: PANTOPRAZOLE 40 MG/10 ML VIAL IV SCH (09:42)
[2016-12-03] MEDS: FLUCONAZOLE 200MG/100ML 100 ML IV SCH (09:42)
[2016-12-04] VITALS (106 sets, daily range): BP systolic 113–131; BP diastolic 64–81
[2016-12-04] MEDS: FREE WATER GT SCH ×6 (02:00→22:23)
[2016-12-04] MEDS: InsuLIN REG 1unit/0.01ml Soln (100units/ml) SC SCH ×4 (06:00→17:41)
[2016-12-04] MEDS: CeftoloZANE-TAZOB 0.375 GM in D5W 5% 100 ML IV SCH ×3 (06:11→22:23)
[2016-12-04] MEDS: ACCU-CHEK COMFORT CURVE STRIP VI SCH ×4 (06:27→17:42)
[2016-12-04 06:53] LABS: Allen Test Modified; Base Excess -6.7 mmol/L (-2.0-2.0); Blood 02Sat 98.1 % (96-100); Blood COHb 0.3 % (0.5-1.5); Blood MetHb 0.4 % (0.0-1.5); HCO3 14.9 mmol/L (22-26.0); HHb 1.9 % (0.0-5.0); MODE VENT - A/C; O2Hb 97.4 % (94.0-97.0); PCO2 20.5 mmHg (35.0-45.0); PCO2(T) 20.5 mmHg (35.0-45.0); PO2 144.7 mmHg (80.0-100.0); PO2(T) 144.7 mmHg (80.0-100.0); Sample Type Arterial; pH 7.479 (7.350-7.450)
[2016-12-04] MEDS: FLUCONAZOLE 200MG/100ML 100 ML IV SCH (10:09)
[2016-12-04] MEDS: PRO-STAT 64 30ML GT SCH (10:09)
[2016-12-04] MEDS: PANTOPRAZOLE 40 MG/10 ML VIAL IV SCH (10:09)
[2016-12-04] MEDS: MIDAZOLAM DRIP 50 mg/50mL 50 ML IV SCH (14:36)
[2016-12-05] VITALS (102 sets, daily range): BP systolic 113–143; BP diastolic 58–80
[2016-12-05] MEDS: InsuLIN REG 1unit/0.01ml Soln (100units/ml) SC SCH ×4 (00:23→18:00)
[2016-12-05] MEDS: ACCU-CHEK COMFORT CURVE STRIP VI SCH ×4 (00:23→18:06)
[2016-12-05] MEDS: FREE WATER GT SCH ×5 (02:00→18:06)
[2016-12-05 03:52] LABS: Hemoglobin 9.3 g/dL (13.5-17.5)
[2016-12-05 03:54] LABS: Hematocrit 27.4 % (41.0-53.0); Mean Corpuscular Hemoglobin 29.6 pg (28.0-32.0); Mean Corpuscular Hgb Conc. 33.8 g/dL (32.0-36.0); Mean Corpuscular Volume 87.4 fL (80.0-100.0); Mean Platelet Volume 9.7 fL (6.9-10.8); Platelet Count (auto) 33 10^3/uL (140-450); Red Cell Distribution Width 16.9 % (11.8-14.3); White Blood Cell 4.2 10^3/uL (4.4-10.8)
[2016-12-05 04:07] LABS: Potassium 3.3 mmol/L (3.5-5.1)
[2016-12-05 04:11] LABS: BUN/Creatinine Ratio 33.2
[2016-12-05] MEDS: CeftoloZANE-TAZOB 0.375 GM in D5W 5% 100 ML IV SCH ×3 (06:00→21:54)
[2016-12-05 07:39] LABS: Metamyelocytes % 0; Myelocytes % 0; Promyelocytes % 0; Reactive Lymphocytes 0
[2016-12-05 07:40] LABS: Anisocytosis Slight; Platelet Estimate Markedly Decreased
[2016-12-05 07:41] LABS: Poikilocytosis Slight
[2016-12-05 08:30] LABS: Allen Test Yes; Base Excess -6.5 mmol/L (-2.0-2.0); Blood 02Sat 97.8 % (96-100); Blood COHb 0.3 % (0.5-1.5); Blood MetHb 0.3 % (0.0-1.5); HCO3 16.7 mmol/L (22-26.0); HHb 2.2 % (0.0-5.0); MODE VENT - A/C; O2Hb 97.2 % (94.0-97.0); PCO2 26.2 mmHg (35.0-45.0); PCO2(T) 26.2 mmHg (35.0-45.0); PO2 142.8 mmHg (80.0-100.0); PO2(T) 142.8 mmHg (80.0-100.0); Sample Type Arterial; pH 7.421 (7.350-7.450)
[2016-12-05] MEDS: PRO-STAT 64 30ML GT SCH (09:40)
[2016-12-05] MEDS: FLUCONAZOLE 200MG/100ML 100 ML IV SCH (09:40)
[2016-12-05] MEDS: PANTOPRAZOLE 40 MG/10 ML VIAL IV SCH (09:41)
[2016-12-05] MEDS ORDERED: POTASSIUM CHL 10% (20 MEQ/15ML) 15ml ORAL SOLN PO ONE (11:45)
[2016-12-05] MEDS: MIDAZOLAM DRIP 50 mg/50mL 50 ML IV SCH ×2 (15:03→19:55)
[2016-12-06] VITALS (105 sets, daily range): BP systolic 109–130; BP diastolic 54–73
[2016-12-06] MEDS: ACCU-CHEK COMFORT CURVE STRIP VI SCH ×4 (00:28→18:00)
[2016-12-06] MEDS: FREE WATER GT SCH ×4 (00:33→18:00)
[2016-12-06] MEDS: MIDAZOLAM DRIP 50 mg/50mL 50 ML IV SCH (02:31)
[2016-12-06 05:19] LABS: Basophils # (auto) 0 uL; Eosinophils % (auto) 1.8 % (0.0-7.0); Lymphocytes # (auto) 0.6 uL; Monocytes # (auto) 0.1 uL; Nucleated Red Blood Cells % 0.1 %; White Blood Cell 2.8 10^3/uL (4.4-10.8)
[2016-12-06 05:22] LABS: Basophils % (auto) 0.3 % (0.0-2.0); Eosinophils # (auto) 0.1 uL; Hematocrit 25.8 % (41.0-53.0); Hemoglobin 8.9 g/dL (13.5-17.5); Lymphocytes % (auto) 20.9 % (10.0-50.0); Mean Corpuscular Hemoglobin 29.9 pg (28.0-32.0); Mean Corpuscular Hgb Conc. 34.7 g/dL (32.0-36.0); Mean Corpuscular Volume 86.2 fL (80.0-100.0); Mean Platelet Volume 9.8 fL (6.9-10.8); Monocytes % (auto) 3.5 % (0.0-12.0); Neutrophils # (auto) 2.1 uL; Neutrophils % (auto) 73.5 % (37.0-80.0); Platelet Count (auto) 37 10^3/uL (140-450); Red Cell Distribution Width 17.1 % (11.8-14.3)
[2016-12-06 05:48] LABS: Calcium 6.5 mg/dL (8.5-10.1); Potassium 3.8 mmol/L (3.5-5.1)
[2016-12-06 05:51] LABS: BUN/Creatinine Ratio 36.3
[2016-12-06] MEDS: InsuLIN REG 1unit/0.01ml Soln (100units/ml) SC SCH ×4 (06:00→18:00)
[2016-12-06] MEDS: CeftoloZANE-TAZOB 0.375 GM in D5W 5% 100 ML IV SCH ×3 (06:26→22:00)
[2016-12-06 06:43] LABS: Burr Cells MODERATE
[2016-12-06 06:45] LABS: Ovalocytes FEW
[2016-12-06 06:46] LABS: Large Platelets FEW; Platelet Estimate Decrea
[2016-12-06 07:43] LABS: Allen Test Yes; Blood 02Sat 97.7 % (96-100); Blood MetHb 0.4 % (0.0-1.5); HCO3 16.5 mmol/L (22-26.0); HHb 2.3 % (0.0-5.0); MODE VENT - A/C; O2Hb 97.3 % (94.0-97.0); PCO2 27.6 mmHg (35.0-45.0); PCO2(T) 27.6 mmHg (35.0-45.0); PO2 130.8 mmHg (80.0-100.0); PO2(T) 130.8 mmHg (80.0-100.0); Sample Type Arterial; pH 7.394 (7.350-7.450)
[2016-12-06] MEDS: FLUCONAZOLE 200MG/100ML 100 ML IV SCH (09:28)
[2016-12-06] MEDS: PRO-STAT 64 30ML GT SCH (09:28)
[2016-12-06] MEDS: PANTOPRAZOLE 40 MG/10 ML VIAL IV SCH (09:28)
[2016-12-06] MEDS ORDERED: MORPHINE SULF INJ 2 MG/ML SYRINGE 1ML IV PRN (12:00)
[2016-12-06 12:05] LABS: INR 1.34 (0.9-1.15); Partial Thromboplastin Time 36.2 sec (22.64-33.71); Prothrombin Time 14.6 sec (9.37-12.3)
[2016-12-06] MEDS ORDERED: MIDAZOLAM DRIP 50 mg/50mL 50 ML IV ONE ×3 (12:10→22:17)
[2016-12-07] VITALS (98 sets, daily range): BP systolic 95–131; BP diastolic 48–73
[2016-12-07 04:29] LABS: INR 1.29 (0.9-1.15); Partial Thromboplastin Time 35.8 sec (22.64-33.71); Prothrombin Time 14.1 sec (9.37-12.3)
[2016-12-07 04:30] LABS: Albumin 1.7 g/dL (3.4-5.0); Calcium 6.6 mg/dL (8.5-10.1); Potassium 3.4 mmol/L (3.5-5.1)
[2016-12-07 04:38] LABS: BUN/Creatinine Ratio 38.1; Bilirubin, Total 0.2 mg/dL (0.2-1.0); Total Protein 4.5 g/dL (6.4-8.2)
[2016-12-07 04:50] LABS: Basophils # (auto) 0 uL; Eosinophils # (auto) 0 uL; Hemoglobin 9.4 g/dL (13.5-17.5); Lymphocytes # (auto) 0.6 uL; Mean Corpuscular Volume 87.1 fL (80.0-100.0); Monocytes # (auto) 0.1 uL; White Blood Cell 2.6 10^3/uL (4.4-10.8)
[2016-12-07 04:52] LABS: Basophils % (auto) 0.3 % (0.0-2.0); Eosinophils % (auto) 1.2 % (0.0-7.0); Hematocrit 27.7 % (41.0-53.0); Lymphocytes % (auto) 24.4 % (10.0-50.0); Mean Corpuscular Hemoglobin 29.7 pg (28.0-32.0); Mean Corpuscular Hgb Conc. 34.1 g/dL (32.0-36.0); Mean Platelet Volume 9.8 fL (6.9-10.8); Neutrophils # (auto) 1.8 uL; Neutrophils % (auto) 71.1 % (37.0-80.0); Platelet Count (auto) 38 10^3/uL (140-450); Red Cell Distribution Width 17.6 % (11.8-14.3)
[2016-12-07] MEDS: ACCU-CHEK COMFORT CURVE STRIP VI SCH ×4 (06:00→18:09)
[2016-12-07] MEDS: CeftoloZANE-TAZOB 0.375 GM in D5W 5% 100 ML IV SCH (06:00)
[2016-12-07] MEDS: FREE WATER GT SCH ×4 (06:00→18:09)
[2016-12-07] MEDS: InsuLIN REG 1unit/0.01ml Soln (100units/ml) SC SCH ×4 (06:39→18:00)
[2016-12-07] MEDS ORDERED: MIDAZOLAM DRIP 50 mg/50mL 50 ML IV SCH (09:53)
[2016-12-07] MEDS: FLUCONAZOLE 200MG/100ML 100 ML IV SCH (10:00)
[2016-12-07] MEDS: PANTOPRAZOLE 40 MG/10 ML VIAL IV SCH (10:00)
[2016-12-07] MEDS: MIDAZOLAM DRIP 50 mg/50mL 50 ML IV SCH (10:00)
[2016-12-07] MEDS: PRO-STAT 64 30ML GT SCH (12:00)
[2016-12-07] MEDS: CeftoloZANE-TAZOB 0.75 GM in D5W 5% 100 ML IV SCH ×2 (15:00→22:00)
[2016-12-07] MEDS: metroNIDAZOLE 500MG/100ML 100 ML IV SCH (22:00)
[2016-12-08] VITALS (90 sets, daily range): BP systolic 108–139; BP diastolic 32–76
[2016-12-08] MEDS: InsuLIN REG 1unit/0.01ml Soln (100units/ml) SC SCH ×3 (00:30→18:00)
[2016-12-08] MEDS: CeftoloZANE-TAZOB 0.75 GM in D5W 5% 100 ML IV SCH (06:00)
[2016-12-08] MEDS: FREE WATER GT SCH ×3 (06:23→18:00)
[2016-12-08] MEDS: ACCU-CHEK COMFORT CURVE STRIP VI SCH ×3 (06:24→18:30)
[2016-12-08] MEDS: metroNIDAZOLE 500MG/100ML 100 ML IV SCH (06:24)
[2016-12-08 07:21] LABS: Basophils # (auto) 0 uL; Eosinophils # (auto) 0 uL; Hemoglobin 9.3 g/dL (13.5-17.5); Lymphocytes # (auto) 0.7 uL; Neutrophils # (auto) 1.9 uL; Nucleated Red Blood Cells % 0.1 %
[2016-12-08 07:23] LABS: Basophils % (auto) 0.5 % (0.0-2.0); Eosinophils % (auto) 1.5 % (0.0-7.0); Lymphocytes % (auto) 25.9 % (10.0-50.0); Mean Corpuscular Hemoglobin 29.8 pg (28.0-32.0); Mean Corpuscular Hgb Conc. 34.3 g/dL (32.0-36.0); Mean Corpuscular Volume 86.9 fL (80.0-100.0); Mean Platelet Volume 9.2 fL (6.9-10.8); Monocytes # (auto) 0 uL; Monocytes % (auto) 1.3 % (0.0-12.0); Neutrophils % (auto) 70.8 % (37.0-80.0); Platelet Count (auto) 42 10^3/uL (140-450); White Blood Cell 2.6 10^3/uL (4.4-10.8)
[2016-12-08 07:25] LABS: Albumin 1.6 g/dL (3.4-5.0); BUN/Creatinine Ratio 39.7; Bilirubin, Total 0.2 mg/dL (0.2-1.0); Calcium 6.6 mg/dL (8.5-10.1); Total Protein 4.7 g/dL (6.4-8.2)
[2016-12-08 07:28] LABS: Allen Test Yes; Base Excess -7.5 mmol/L (-2.0-2.0); Blood 02Sat 97.5 % (96-100); Blood COHb 0.3 % (0.5-1.5); Blood MetHb 0.5 % (0.0-1.5); HCO3 16.6 mmol/L (22-26.0); HHb 2.5 % (0.0-5.0); MODE VENT - A/C; O2Hb 96.7 % (94.0-97.0); PO2 125.5 mmHg (80.0-100.0); PO2(T) 125.5 mmHg (80.0-100.0); Sample Type Arterial; pH 7.376 (7.350-7.450)
[2016-12-08] MEDS: PRO-STAT 64 30ML GT SCH (10:00)
[2016-12-08] MEDS: PANTOPRAZOLE 40 MG/10 ML VIAL IV SCH (11:16)
[2016-12-08] MEDS ORDERED: InsuLIN REG 1unit/0.01ml Soln (100units/ml) SC ONE (15:15)
[2016-12-08] MEDS ORDERED: LIDOCAINE 1% HCL (LOCAL ANESTH.) INJ 20ML MDV ID ONE (15:15)
[2016-12-08] MEDS: MIDAZOLAM DRIP 50 mg/50mL 50 ML IV SCH (18:01)
[2016-12-08] MEDS: FLORASTOR (S. BOULARDII) 250 MG CAP PO SCH (22:00)
[2016-12-08] MEDS: SODIUM CHLOR 0.9% PF (SALINE LOCK) 10ML VIAL IV SCH (22:00)
[2016-12-09] VITALS (62 sets, daily range): BP systolic 109–140; BP diastolic 53–76
[2016-12-09] MEDS: MIDAZOLAM DRIP 50 mg/50mL 50 ML IV SCH ×2 (01:47→16:04)
[2016-12-09 03:57] LABS: Basophils # (auto) 0 uL; Eosinophils # (auto) 0 uL; Hematocrit 23.9 % (41.0-53.0); Hemoglobin 8.3 g/dL (13.5-17.5); Lymphocytes # (auto) 0.7 uL; Monocytes # (auto) 0.1 uL; Neutrophils # (auto) 1.8 uL; Red Cell Distribution Width 17.5 % (11.8-14.3); White Blood Cell 2.7 10^3/uL (4.4-10.8)
[2016-12-09 04:01] LABS: Basophils % (auto) 0.4 % (0.0-2.0); Eosinophils % (auto) 1.6 % (0.0-7.0); Lymphocytes % (auto) 27.3 % (10.0-50.0); Mean Corpuscular Hgb Conc. 34.9 g/dL (32.0-36.0); Mean Platelet Volume 8.1 fL (6.9-10.8); Monocytes % (auto) 2.8 % (0.0-12.0); Neutrophils % (auto) 67.9 % (37.0-80.0); Nucleated Red Blood Cells % 0.1 %; Platelet Count (auto) 98 10^3/uL (140-450)
[2016-12-09 04:19] LABS: Albumin 1.5 g/dL (3.4-5.0); Calcium 6.7 mg/dL (8.5-10.1)
[2016-12-09 04:21] LABS: Bilirubin, Total 0.2 mg/dL (0.2-1.0); Total Protein 4.6 g/dL (6.4-8.2)
[2016-12-09 04:27] LABS: Potassium 2.8 mmol/L (3.5-5.1)
[2016-12-09] MEDS: POTASSIUM CHL 20MEQ/100ML 100 ML IV SCH ×2 (05:13→06:54)
[2016-12-09] MEDS: FREE WATER GT SCH ×5 (05:13→21:59)
[2016-12-09] MEDS: ACCU-CHEK COMFORT CURVE STRIP VI SCH ×4 (06:00→18:00)
[2016-12-09] MEDS: InsuLIN REG 1unit/0.01ml Soln (100units/ml) SC SCH ×4 (06:00→18:55)
[2016-12-09 08:08] LABS: Allen Test Modified; Base Excess -7.3 mmol/L (-2.0-2.0); Blood 02Sat 97.3 % (96-100); Blood COHb 0.2 % (0.5-1.5); Blood MetHb 0.6 % (0.0-1.5); HCO3 16.3 mmol/L (22-26.0); HHb 2.7 % (0.0-5.0); MODE VENT - A/C; O2Hb 96.5 % (94.0-97.0); PCO2 26.4 mmHg (35.0-45.0); PCO2(T) 25.6 mmHg (35.0-45.0); PO2 113.3 mmHg (80.0-100.0); Sample Type Arterial; pH 7.409 (7.350-7.450)
[2016-12-09] MEDS ORDERED: HYDROmorphone HCL 2 MG/ML VL ONE (08:09)
[2016-12-09] MEDS ORDERED: SODIUM CHLORIDE LOCK 10 ML ONE (08:09)
[2016-12-09] MEDS ORDERED: MIDAZOLAM HCL 1MG/1ML-2 ML VIAL ONE (08:09)
[2016-12-09] MEDS ORDERED: fentaNYL CITRATE 5 ML ONE ×2 (08:09→08:10)
[2016-12-09] MEDS ORDERED: ROCURONIUM 10MG/ML 10ML VIAL IV ONE (08:59)
[2016-12-09] MEDS ORDERED: ceFAZolin 1GM VL ONE (09:44)
[2016-12-09] MEDS: PRO-STAT 64 30ML GT SCH (10:00)
[2016-12-09] MEDS: FLORASTOR (S. BOULARDII) 250 MG CAP PO SCH ×2 (10:00→21:59)
[2016-12-09] MEDS: PANTOPRAZOLE 40 MG/10 ML VIAL IV SCH (16:03)
[2016-12-09] MEDS: SODIUM CHLOR 0.9% PF (SALINE LOCK) 10ML VIAL IV SCH ×2 (16:03→21:59)
[2016-12-09] MEDS ORDERED: SODIUM CHLORIDE 0.9% 1,000 ML IV SCH (17:15)
[2016-12-10] VITALS (90 sets, daily range): BP systolic 113–136; BP diastolic 54–79
[2016-12-10] MEDS: ACCU-CHEK COMFORT CURVE STRIP VI SCH ×4 (00:11→17:48)
[2016-12-10 04:02] LABS: Basophils # (auto) 0 uL; Hemoglobin 8.4 g/dL (13.5-17.5); Monocytes # (auto) 0.1 uL; Neutrophils # (auto) 2.1 uL; White Blood Cell 3.1 10^3/uL (4.4-10.8)
[2016-12-10 04:04] LABS: Basophils % (auto) 1.3 % (0.0-2.0); Eosinophils # (auto) 0.1 uL; Eosinophils % (auto) 1.8 % (0.0-7.0); Hematocrit 24.4 % (41.0-53.0); Lymphocytes # (auto) 0.8 uL; Lymphocytes % (auto) 26.8 % (10.0-50.0); Mean Corpuscular Hemoglobin 29.7 pg (28.0-32.0); Mean Corpuscular Hgb Conc. 34.4 g/dL (32.0-36.0); Mean Corpuscular Volume 86.4 fL (80.0-100.0); Mean Platelet Volume 8.4 fL (6.9-10.8); Monocytes % (auto) 2.8 % (0.0-12.0); Neutrophils % (auto) 67.3 % (37.0-80.0); Platelet Count (auto) 111 10^3/uL (140-450)
[2016-12-10 04:11] LABS: Nucleated Red Blood Cells % 0.1 %
[2016-12-10 04:17] LABS: Albumin 1.5 g/dL (3.4-5.0); Potassium 3.5 mmol/L (3.5-5.1)
[2016-12-10 04:19] LABS: BUN/Creatinine Ratio 41.9
[2016-12-10 04:22] LABS: Bilirubin, Total 0.3 mg/dL (0.2-1.0); Total Protein 4.6 g/dL (6.4-8.2)
[2016-12-10] MEDS: FREE WATER GT SCH ×3 (06:00→17:48)
[2016-12-10] MEDS: InsuLIN REG 1unit/0.01ml Soln (100units/ml) SC SCH ×4 (06:00→17:48)
[2016-12-10 07:56] LABS: Allen Test Yes; Base Excess -8.3 mmol/L (-2.0-2.0); Blood COHb 0.3 % (0.5-1.5); Blood MetHb 0.5 % (0.0-1.5); HCO3 15.4 mmol/L (22-26.0); MODE VENT - A/C; O2Hb 96.2 % (94.0-97.0); PCO2 25.9 mmHg (35.0-45.0); PCO2(T) 25.9 mmHg (35.0-45.0); PIP 19; PO2 112.6 mmHg (80.0-100.0); PO2(T) 112.6 mmHg (80.0-100.0); Sample Type Arterial; pH 7.392 (7.350-7.450)
[2016-12-10] MEDS: PANTOPRAZOLE 40 MG/10 ML VIAL IV SCH (09:36)
[2016-12-10] MEDS: SODIUM CHLOR 0.9% PF (SALINE LOCK) 10ML VIAL IV SCH ×2 (09:36→22:00)
[2016-12-10] MEDS: FLORASTOR (S. BOULARDII) 250 MG CAP PO SCH ×2 (10:00→22:00)
[2016-12-10] MEDS: PRO-STAT 64 30ML GT SCH (10:00)
[2016-12-10] MEDS: POTASSIUM CHL 10% (20 MEQ/15ML) 15ml ORAL SOLN GT SCH (11:15)
[2016-12-10] MEDS ORDERED: Novasource Renal 1 Liter GT SCH (12:45)
[2016-12-11] VITALS (45 sets, daily range): BP systolic 115–143; BP diastolic 68–100
[2016-12-11 04:33] LABS: Basophils # (auto) 0 uL; Basophils % (auto) 0.4 % (0.0-2.0); Eosinophils # (auto) 0 uL; Eosinophils % (auto) 0.1 % (0.0-7.0); Hematocrit 26.4 % (41.0-53.0); Hemoglobin 9.1 g/dL (13.5-17.5); Lymphocytes # (auto) 1.1 uL; Lymphocytes % (auto) 18.2 % (10.0-50.0); Mean Corpuscular Hemoglobin 29.8 pg (28.0-32.0); Mean Corpuscular Hgb Conc. 34.3 g/dL (32.0-36.0); Mean Corpuscular Volume 86.7 fL (80.0-100.0); Monocytes # (auto) 0.2 uL; Monocytes % (auto) 2.9 % (0.0-12.0); Neutrophils # (auto) 4.6 uL; Neutrophils % (auto) 78.4 % (37.0-80.0); Platelet Count (auto) 116 10^3/uL (140-450); Red Cell Distribution Width 18.3 % (11.8-14.3); White Blood Cell 5.9 10^3/uL (4.4-10.8)
[2016-12-11 04:52] LABS: BUN/Creatinine Ratio 41.5; Calcium 6.9 mg/dL (8.5-10.1); Potassium 3.8 mmol/L (3.5-5.1)
[2016-12-11] MEDS: InsuLIN REG 1unit/0.01ml Soln (100units/ml) SC SCH ×4 (06:00→18:24)
[2016-12-11] MEDS: ACCU-CHEK COMFORT CURVE STRIP VI SCH ×4 (06:13→18:11)
[2016-12-11] MEDS: FREE WATER GT SCH ×5 (06:14→23:24)
[2016-12-11] MEDS: MIDAZOLAM DRIP 50 mg/50mL 50 ML IV SCH (09:53)
[2016-12-11] MEDS: PANTOPRAZOLE 40 MG/10 ML VIAL IV SCH (09:54)
[2016-12-11] MEDS: FLORASTOR (S. BOULARDII) 250 MG CAP PO SCH ×2 (09:55→22:58)
[2016-12-11] MEDS: POTASSIUM CHL 10% (20 MEQ/15ML) 15ml ORAL SOLN GT SCH (10:23)
[2016-12-11] MEDS: PRO-STAT 64 30ML GT SCH (10:23)
[2016-12-11] MEDS: SODIUM CHLOR 0.9% PF (SALINE LOCK) 10ML VIAL IV SCH ×2 (10:23→22:00)
[2016-12-11] MEDS ORDERED: Novasource Renal 1 Liter GT SCH (11:00)
[2016-12-11] MEDS: SODIUM BICARBONATE 50ML VIAL 50 ML in SOD CHL 0.45% WITH 20MEQ KCL 1,000 ML IV SCH (13:00)
[2016-12-12] VITALS (111 sets, daily range): BP systolic 117–136; BP diastolic 66–86
[2016-12-12] MEDS: InsuLIN REG 1unit/0.01ml Soln (100units/ml) SC SCH ×4 (00:10→18:00)
[2016-12-12] MEDS: ACCU-CHEK COMFORT CURVE STRIP VI SCH ×5 (00:10→18:27)
[2016-12-12] MEDS: FREE WATER GT SCH ×3 (06:03→18:27)
[2016-12-12] MEDS: SODIUM BICARBONATE 50ML VIAL 50 ML in SOD CHL 0.45% WITH 20MEQ KCL 1,000 ML IV SCH (08:30)
[2016-12-12] MEDS: MIDAZOLAM DRIP 50 mg/50mL 50 ML IV SCH (09:53)
[2016-12-12] MEDS: PANTOPRAZOLE 40 MG/10 ML VIAL IV SCH (10:22)
[2016-12-12] MEDS: FLORASTOR (S. BOULARDII) 250 MG CAP PO SCH ×2 (10:22→21:39)
[2016-12-12] MEDS: PRO-STAT 64 30ML GT SCH (10:22)
[2016-12-12] MEDS: SODIUM CHLOR 0.9% PF (SALINE LOCK) 10ML VIAL IV SCH ×2 (10:22→21:39)
[2016-12-13] VITALS (101 sets, daily range): BP systolic 120–140; BP diastolic 68–89
[2016-12-13 04:30] LABS: Albumin 1.7 g/dL (3.4-5.0); Calcium 7.4 mg/dL (8.5-10.1); Potassium 4.3 mmol/L (3.5-5.1)
[2016-12-13 04:33] LABS: BUN/Creatinine Ratio 47.2; Bilirubin, Total 0.3 mg/dL (0.2-1.0); Total Protein 5.1 g/dL (6.4-8.2)
[2016-12-13] MEDS: SODIUM BICARBONATE 50ML VIAL 50 ML in SOD CHL 0.45% WITH 20MEQ KCL 1,000 ML IV SCH (05:30)
[2016-12-13] MEDS: InsuLIN REG 1unit/0.01ml Soln (100units/ml) SC SCH ×5 (06:00→23:49)
[2016-12-13] MEDS: ACCU-CHEK COMFORT CURVE STRIP VI SCH ×5 (06:00→23:49)
[2016-12-13] MEDS: FREE WATER GT SCH ×5 (06:00→23:48)
[2016-12-13] MEDS: MIDAZOLAM DRIP 50 mg/50mL 50 ML IV SCH (09:53)
[2016-12-13] MEDS: PRO-STAT 64 30ML GT SCH (10:00)
[2016-12-13] MEDS: FLORASTOR (S. BOULARDII) 250 MG CAP PO SCH ×2 (10:00→22:08)
[2016-12-13] MEDS: SODIUM CHLOR 0.9% PF (SALINE LOCK) 10ML VIAL IV SCH ×2 (10:00→22:08)
[2016-12-13] MEDS: PANTOPRAZOLE 40 MG/10 ML VIAL IV SCH (10:00)
[2016-12-13] MEDS ORDERED: DEXTROSE (50%) 50ML SYRG IV PRN (14:15)
[2016-12-13] MEDS ORDERED: LORazepam 2MG/ML-1ML VIAL IV PRN (14:15)
[2016-12-13] MEDS ORDERED: MORPHINE SULF INJ 2 MG/ML SYRINGE 1ML IV PRN (14:15)
[2016-12-13] MEDS ORDERED: NITROGLYCERIN 0.4 MG SL TAB SL PRN (14:15)
[2016-12-13] MEDS: Novasource Renal 1 Liter GT SCH (20:00)
[2016-12-14] VITALS (88 sets, daily range): BP systolic 120–139; BP diastolic 74–89
[2016-12-14 04:22] LABS: Albumin 1.6 g/dL (3.4-5.0); BUN/Creatinine Ratio 52.2
[2016-12-14 04:25] LABS: Bilirubin, Total 0.2 mg/dL (0.2-1.0); Total Protein 5.1 g/dL (6.4-8.2)
[2016-12-14] MEDS: SODIUM BICARBONATE 50ML VIAL 50 ML in SOD CHL 0.45% WITH 20MEQ KCL 1,000 ML IV SCH (04:30)
[2016-12-14] MEDS: ACCU-CHEK COMFORT CURVE STRIP VI SCH ×3 (05:04→18:18)
[2016-12-14] MEDS: InsuLIN REG 1unit/0.01ml Soln (100units/ml) SC SCH ×3 (05:06→18:00)
[2016-12-14] MEDS: FREE WATER GT SCH ×4 (05:06→22:00)
[2016-12-14] MEDS: SODIUM CHLOR 0.9% PF (SALINE LOCK) 10ML VIAL IV SCH ×2 (09:58→22:00)
[2016-12-14] MEDS: PRO-STAT 64 30ML GT SCH (10:00)
[2016-12-14] MEDS: FLORASTOR (S. BOULARDII) 250 MG CAP PO SCH ×2 (10:17→22:00)
[2016-12-14] MEDS: PANTOPRAZOLE 40 MG/10 ML VIAL IV SCH (10:17)
[2016-12-14] MEDS: ALBUMIN 25% 100 ML IV SCH (12:00)
[2016-12-15] VITALS (75 sets, daily range): BP systolic 128–141; BP diastolic 72–85
[2016-12-15] MEDS: ALBUMIN 25% 100 ML IV SCH ×3 (00:01→23:59)
[2016-12-15] MEDS: ACCU-CHEK COMFORT CURVE STRIP VI SCH ×4 (00:02→18:09)
[2016-12-15] MEDS: InsuLIN REG 1unit/0.01ml Soln (100units/ml) SC SCH ×4 (00:24→18:00)
[2016-12-15] MEDS: FREE WATER GT SCH ×6 (02:52→22:22)
[2016-12-15 04:20] LABS: Albumin 2.1 g/dL (3.4-5.0); BUN/Creatinine Ratio 50.3; Bilirubin, Total 0.3 mg/dL (0.2-1.0); Calcium 7.3 mg/dL (8.5-10.1); Potassium 3.9 mmol/L (3.5-5.1); Total Protein 5.4 g/dL (6.4-8.2)
[2016-12-15] MEDS: SODIUM CHLOR 0.9% PF (SALINE LOCK) 10ML VIAL IV SCH ×2 (10:00→22:23)
[2016-12-15] MEDS: PRO-STAT 64 30ML GT SCH ×2 (10:00→14:24)
[2016-12-15] MEDS: FLORASTOR (S. BOULARDII) 250 MG CAP PO SCH ×2 (11:06→22:23)
[2016-12-15] MEDS: PANTOPRAZOLE 40 MG/10 ML VIAL IV SCH (11:06)
[2016-12-15 19:19] LABS: Urine Bilirubin Negative (Negative); Urine Blood 3+ /uL (Negative); Urine Color Yellow (Yellow); Urine Glucose Normal (Normal); Urine Granular Cast FEW /lpf (0); Urine Hyaline Cast MOD /lpf (0 - 2); Urine Ketone Negative (Negative); Urine Mucus FEW (None Seen); Urine Nitrite Negative (Negative); Urine RBC 99 /hpf (0 - 3); Urine Squamous Epithelial Cell FEW /hpf (<5); Urine Urobilinogen Normal (Negative); Urine WBC Clumps PRESENT /hpf (None Seen)
[2016-12-15] MEDS: Novasource Renal 1 Liter GT SCH ×2 (20:21→21:00)
[2016-12-16] VITALS (27 sets, daily range): BP systolic 119–140; BP diastolic 72–96
[2016-12-16] MEDS: ACCU-CHEK COMFORT CURVE STRIP VI SCH ×4 (00:02→17:29)
[2016-12-16] MEDS: InsuLIN REG 1unit/0.01ml Soln (100units/ml) SC SCH ×4 (00:03→17:55)
[2016-12-16] MEDS: FREE WATER GT SCH ×6 (02:00→22:00)
[2016-12-16 05:09] LABS: Basophils # (auto) 0 uL; Basophils % (auto) 0.6 % (0.0-2.0); Eosinophils # (auto) 0 uL; Hemoglobin 7.5 g/dL (13.5-17.5); Lymphocytes # (auto) 0.9 uL; Monocytes # (auto) 0.2 uL; Neutrophils # (auto) 2.4 uL
[2016-12-16 05:11] LABS: Eosinophils % (auto) 0.9 % (0.0-7.0); Lymphocytes % (auto) 25.3 % (10.0-50.0); Mean Corpuscular Hemoglobin 30.3 pg (28.0-32.0); Mean Corpuscular Hgb Conc. 34.2 g/dL (32.0-36.0); Mean Corpuscular Volume 88.4 fL (80.0-100.0); Mean Platelet Volume 9.2 fL (6.9-10.8); Monocytes % (auto) 6.2 % (0.0-12.0); Nucleated Red Blood Cells % 0.5 %; Platelet Count (auto) 54 10^3/uL (140-450); Red Cell Distribution Width 18.8 % (11.8-14.3); White Blood Cell 3.5 10^3/uL (4.4-10.8)
[2016-12-16 05:31] LABS: Albumin 2.5 g/dL (3.4-5.0); Calcium 7.4 mg/dL (8.5-10.1); Potassium 3.9 mmol/L (3.5-5.1)
[2016-12-16 05:33] LABS: BUN/Creatinine Ratio 53.7
[2016-12-16 05:38] LABS: Bilirubin, Total 0.3 mg/dL (0.2-1.0); Total Protein 5.7 g/dL (6.4-8.2)
[2016-12-16] MEDS: PRO-STAT 64 30ML GT SCH (10:00)
[2016-12-16] MEDS: FLORASTOR (S. BOULARDII) 250 MG CAP PO SCH ×2 (10:00→22:00)
[2016-12-16] MEDS: SODIUM CHLOR 0.9% PF (SALINE LOCK) 10ML VIAL IV SCH ×2 (10:00→22:00)
[2016-12-16] MEDS: PANTOPRAZOLE 40 MG/10 ML VIAL IV SCH (10:42)
[2016-12-16] MEDS ORDERED: FUROSEMIDE 40 MG/4 ML VIAL IV ONE (11:45)
[2016-12-16 18:36] LABS: Hemoglobin 7.5 g/dL (13.5-17.5)
[2016-12-16 18:38] LABS: Hematocrit 22.5 % (41.0-53.0)
[2016-12-16 20:26] LABS: Hematocrit 30.1 % (41.0-53.0); Hemoglobin 10.1 g/dL (13.5-17.5)
[2016-12-17] VITALS (20 sets, daily range): BP systolic 113–135; BP diastolic 66–84
[2016-12-17] MEDS: FREE WATER GT SCH ×6 (02:24→22:05)
[2016-12-17] MEDS: Novasource Renal 1 Liter GT SCH (02:24)
[2016-12-17] MEDS: InsuLIN REG 1unit/0.01ml Soln (100units/ml) SC SCH ×5 (06:00→23:51)
[2016-12-17] MEDS: ACCU-CHEK COMFORT CURVE STRIP VI SCH ×5 (06:22→23:50)
[2016-12-17 06:40] LABS: Albumin 2.1 g/dL (3.4-5.0); BUN/Creatinine Ratio 58.2; Bilirubin, Total 0.3 mg/dL (0.2-1.0); Calcium 7.4 mg/dL (8.5-10.1); Potassium 3.7 mmol/L (3.5-5.1); Total Protein 5.6 g/dL (6.4-8.2)
[2016-12-17] MEDS: FLORASTOR (S. BOULARDII) 250 MG CAP PO SCH ×2 (09:46→22:31)
[2016-12-17] MEDS: SODIUM CHLOR 0.9% PF (SALINE LOCK) 10ML VIAL IV SCH ×2 (09:46→22:04)
[2016-12-17] MEDS: PRO-STAT 64 30ML GT SCH (09:46)
[2016-12-17] MEDS: PANTOPRAZOLE 40 MG/10 ML VIAL IV SCH (09:46)
[2016-12-17] MEDS: FUROSEMIDE 40 MG TAB PO SCH (14:55)
[2016-12-17] MEDS: POTASSIUM CHL 10% (20 MEQ/15ML) 15ml ORAL SOLN GT SCH (14:56)
[2016-12-17] MEDS ORDERED: MORPHINE SULFATE 10 MG/ML INJ 1ML SDV IV PRN (16:15)
[2016-12-18 00:41] VITALS: BP 95/86
[2016-12-18] MEDS: FREE WATER GT SCH ×5 (02:08→18:13)
[2016-12-18 04:12] VITALS: BP 115/60
[2016-12-18] MEDS: ACCU-CHEK COMFORT CURVE STRIP VI SCH ×3 (05:46→18:09)
[2016-12-18] MEDS: InsuLIN REG 1unit/0.01ml Soln (100units/ml) SC SCH ×3 (05:46→18:26)
[2016-12-18 08:00] VITALS: BP 116/66
[2016-12-18] MEDS: PRO-STAT 64 30ML GT SCH (10:00)
[2016-12-18] MEDS: POTASSIUM CHL 10% (20 MEQ/15ML) 15ml ORAL SOLN GT SCH (10:00)
[2016-12-18] MEDS: PANTOPRAZOLE 40 MG/10 ML VIAL IV SCH (10:32)
[2016-12-18] MEDS: FUROSEMIDE 40 MG TAB PO SCH (10:33)
[2016-12-18] MEDS: SODIUM CHLOR 0.9% PF (SALINE LOCK) 10ML VIAL IV SCH (10:39)
[2016-12-18] MEDS: FLORASTOR (S. BOULARDII) 250 MG CAP PO SCH (10:43)
[2016-12-18 12:00] VITALS: BP 115/71
[2016-12-18 15:51] VITALS: BP 101/59
[2016-12-18 19:46] VITALS: BP 101/64
[2016-12-18] MEDS ORDERED: ATROPINE SULFATE 0.4 MG/1 ML VIAL ONE (21:39)
[2016-12-18] MEDS ORDERED: CALCIUM CHLOR(10%) 100MG/ML 10ML SYRINGE IV ONE (21:45)
[2016-12-18] MEDS ORDERED: EPINEPHrine HCL 1 MG/10 ML SYRG IV ONE (21:45)
[2016-12-18] MEDS ORDERED: SODIUM BICARBONATE 8.4% INJ 50ML SYRINGE IV ONE (21:45)
[2016-12-18] MEDS ORDERED: ATROPINE SULF 0.5 MG/5ML SYR IV ONE (21:45)
[2016-12-18] MEDS ORDERED: NOREPINEPHRINE 8 MG/250ML KIT 250 ML IV ONE (22:00)
[2016-12-18 22:37] LABS: Mean Platelet Volume 9.7 fL (6.9-10.8)
[2016-12-18 22:39] LABS: Hematocrit 22.6 % (41.0-53.0); Hemoglobin 8.1 g/dL (13.5-17.5); Mean Corpuscular Hemoglobin 31.1 pg (28.0-32.0); Mean Corpuscular Hgb Conc. 35.7 g/dL (32.0-36.0); Mean Corpuscular Volume 87.1 fL (80.0-100.0); Platelet Count (auto) 41 10^3/uL (140-450); Red Cell Distribution Width 17.4 % (11.8-14.3); White Blood Cell 5.1 10^3/uL (4.4-10.8)
[2016-12-18 22:56] LABS: Metamyelocytes % 0; Myelocytes % 0; Promyelocytes % 0; Reactive Lymphocytes 0
[2016-12-18 22:59] LABS: Base Excess -14.6 mmol/L (-2.0-2.0); Blood 02Sat 98.6 % (96-100); Blood COHb 0.3 % (0.5-1.5); Blood MetHb 0.3 % (0.0-1.5); HCO3 14.5 mmol/L (22-26.0); HHb 1.4 % (0.0-5.0); MODE VENT - A/C; PCO2 48.5 mmHg (35.0-45.0); PCO2(T) 48.5 mmHg (35.0-45.0); PO2 293.1 mmHg (80.0-100.0); PO2(T) 293.1 mmHg (80.0-100.0); Room 0264D; Sample Type Arterial; pH 7.094 (7.350-7.450)
[2016-12-18 23:24] LABS: Anisocytosis Slight; Platelet Estimate Decreased
[2016-12-19] VITALS (91 sets, daily range): BP systolic 103–128; BP diastolic 50–81
[2016-12-19] MEDS: FREE WATER GT SCH ×7 (00:23→21:54)
[2016-12-19] MEDS: SODIUM CHLOR 0.9% PF (SALINE LOCK) 10ML VIAL IV SCH ×3 (00:24→21:54)
[2016-12-19] MEDS: ACCU-CHEK COMFORT CURVE STRIP VI SCH ×4 (00:24→18:00)
[2016-12-19] MEDS: FLORASTOR (S. BOULARDII) 250 MG CAP PO SCH ×3 (00:24→21:54)
[2016-12-19] MEDS ORDERED: SODIUM BICARBONATE 8.4% INJ 50ML SYRINGE ONE (00:29)
[2016-12-19] MEDS ORDERED: FUROSEMIDE 20 MG/2 ML VIAL ONE (00:29)
[2016-12-19] MEDS ORDERED: FUROSEMIDE 20 MG/2 ML VIAL IV ONE (00:30)
[2016-12-19] MEDS ORDERED: SODIUM BICARBONATE 8.4 % INJ 50ML VIAL IV ONE (00:30)
[2016-12-19] MEDS: InsuLIN REG 1unit/0.01ml Soln (100units/ml) SC SCH ×4 (00:48→18:00)
[2016-12-19] MEDS: SODIUM BICARBONATE 50ML VIAL 100 ML in SOD CHL 0.45% 1,000 ML IV SCH ×2 (00:49→14:15)
[2016-12-19 00:52] LABS: B-Type Natriuretic Peptide > 5000 pg/mL (0-100)
[2016-12-19 01:05] LABS: Albumin 1.9 g/dL (3.4-5.0); BUN/Creatinine Ratio 54.2; Bilirubin, Total 0.3 mg/dL (0.2-1.0); Calcium 8.1 mg/dL (8.5-10.1); Magnesium 2.9 mg/dL (1.6-2.6); Potassium 4.3 mmol/L (3.5-5.1); Total Protein 5.5 g/dL (6.4-8.2)
[2016-12-19 03:52] LABS: Blood 02Sat 97.3 % (96-100); Blood COHb 0.1 % (0.5-1.5); Blood MetHb 0.2 % (0.0-1.5); HCO3 18.9 mmol/L (22-26.0); HHb 2.7 % (0.0-5.0); MODE VENT - A/C; PCO2 34.7 mmHg (35.0-45.0); PCO2(T) 34.7 mmHg (35.0-45.0); PO2 113.2 mmHg (80.0-100.0); PO2(T) 113.2 mmHg (80.0-100.0); Sample Type Arterial; pH 7.355 (7.350-7.450)
[2016-12-19 09:08] LABS: Basophils # (auto) 0 uL; Basophils % (auto) 0.3 % (0.0-2.0); Eosinophils # (auto) 0 uL; Eosinophils % (auto) 0.4 % (0.0-7.0); Hematocrit 21.4 % (41.0-53.0); Hemoglobin 7.2 g/dL (13.5-17.5); Lymphocytes # (auto) 0.4 uL; Lymphocytes % (auto) 18.3 % (10.0-50.0); Mean Corpuscular Hemoglobin 30.2 pg (28.0-32.0); Mean Corpuscular Hgb Conc. 33.5 g/dL (32.0-36.0); Mean Corpuscular Volume 90.3 fL (80.0-100.0); Mean Platelet Volume 9.3 fL (6.9-10.8); Monocytes # (auto) 0.2 uL; Monocytes % (auto) 8.9 % (0.0-12.0); Neutrophils # (auto) 1.7 uL; Neutrophils % (auto) 72.1 % (37.0-80.0); Nucleated Red Blood Cells % 0.9 %; Platelet Count (auto) 42 10^3/uL (140-450); Red Cell Distribution Width 17.7 % (11.8-14.3); White Blood Cell 2.4 10^3/uL (4.4-10.8)
[2016-12-19 09:29] LABS: Albumin 1.9 g/dL (3.4-5.0); Calcium 7.8 mg/dL (8.5-10.1)
[2016-12-19 09:31] LABS: BUN/Creatinine Ratio 60.9
[2016-12-19 09:33] LABS: Bilirubin, Total 0.4 mg/dL (0.2-1.0); Total Protein 5.1 g/dL (6.4-8.2)
[2016-12-19] MEDS ORDERED: PANTOPRAZOLE 40 MG TAB PO SCH (10:00)
[2016-12-19] MEDS: PANTOPRAZOLE 40 MG/10 ML VIAL IV SCH ×2 (10:11→21:54)
[2016-12-19] MEDS: FUROSEMIDE 40 MG TAB PO SCH (10:11)
[2016-12-19] MEDS: POTASSIUM CHL 10% (20 MEQ/15ML) 15ml ORAL SOLN GT SCH (10:12)
[2016-12-19] MEDS: PRO-STAT 64 30ML GT SCH (10:12)
[2016-12-19] MEDS: FLUCONAZOLE 200MG/100ML 100 ML IV SCH (10:12)
[2016-12-19] MEDS: Novasource Renal 1 Liter GT SCH (12:43)
[2016-12-19 12:50] LABS: INR 1.45 (0.9-1.15); Prothrombin Time 15.9 sec (9.37-12.3)
[2016-12-19 15:27] LABS: Hematocrit 21.4 % (41.0-53.0); Hemoglobin 7.2 g/dL (13.5-17.5)
[2016-12-19 21:36] LABS: Hemoglobin 6.3 g/dL (13.5-17.5)
[2016-12-20] VITALS (88 sets, daily range): BP systolic 116–142; BP diastolic 65–83
[2016-12-20] MEDS: FREE WATER GT SCH ×6 (02:00→21:54)
[2016-12-20] MEDS: SODIUM BICARBONATE 50ML VIAL 100 ML in SOD CHL 0.45% 1,000 ML IV SCH (03:49)
[2016-12-20 04:07] LABS: Basophils # (auto) 0 uL; Eosinophils # (auto) 0 uL; Eosinophils % (auto) 0.5 % (0.0-7.0); Hemoglobin 8.4 g/dL (13.5-17.5); Lymphocytes # (auto) 0.6 uL; Monocytes # (auto) 0.2 uL; Neutrophils # (auto) 2.4 uL; Platelet Count (auto) 46 10^3/uL (140-450)
[2016-12-20 04:09] LABS: Basophils % (auto) 0.5 % (0.0-2.0); Hematocrit 24.6 % (41.0-53.0); Lymphocytes % (auto) 17.9 % (10.0-50.0); Mean Corpuscular Hemoglobin 30.6 pg (28.0-32.0); Mean Platelet Volume 10.4 fL (6.9-10.8); Monocytes % (auto) 7.5 % (0.0-12.0); Neutrophils % (auto) 73.6 % (37.0-80.0); Nucleated Red Blood Cells % 0.3 %; Red Cell Distribution Width 17.3 % (11.8-14.3); White Blood Cell 3.3 10^3/uL (4.4-10.8)
[2016-12-20 04:17] LABS: INR 1.53 (0.9-1.15); Prothrombin Time 16.7 sec (9.37-12.3)
[2016-12-20 04:30] LABS: Albumin 1.8 g/dL (3.4-5.0); BUN/Creatinine Ratio 56.4; Bilirubin, Total 0.4 mg/dL (0.2-1.0); Calcium 7.3 mg/dL (8.5-10.1); Potassium 3.9 mmol/L (3.5-5.1); Total Protein 5.4 g/dL (6.4-8.2)
[2016-12-20] MEDS: ACCU-CHEK COMFORT CURVE STRIP VI SCH ×5 (07:49→23:46)
[2016-12-20] MEDS: InsuLIN REG 1unit/0.01ml Soln (100units/ml) SC SCH ×5 (07:53→23:46)
[2016-12-20 08:34] LABS: Hemoglobin 8.7 g/dL (13.5-17.5)
[2016-12-20 08:37] LABS: Hematocrit 25.5 % (41.0-53.0)
[2016-12-20] MEDS: FLUCONAZOLE 200MG/100ML 100 ML IV SCH (09:41)
[2016-12-20] MEDS: PANTOPRAZOLE 40 MG/10 ML VIAL IV SCH ×2 (09:41→21:54)
[2016-12-20] MEDS: FUROSEMIDE 40 MG TAB PO SCH (09:42)
[2016-12-20] MEDS: POTASSIUM CHL 10% (20 MEQ/15ML) 15ml ORAL SOLN GT SCH (09:42)
[2016-12-20] MEDS: SODIUM CHLOR 0.9% PF (SALINE LOCK) 10ML VIAL IV SCH ×2 (10:00→21:54)
[2016-12-20] MEDS: PRO-STAT 64 30ML GT SCH (10:00)
[2016-12-20] MEDS: FLORASTOR (S. BOULARDII) 250 MG CAP PO SCH ×2 (10:00→21:54)
[2016-12-20] MEDS ORDERED: EPINEPHrine HCL 1 MG/10 ML SYRG IV ONE (13:14)
[2016-12-20] MEDS ORDERED: LORazepam 2MG/ML-1ML VIAL IV PRN (13:15)
[2016-12-21] VITALS (32 sets, daily range): BP systolic 113–129; BP diastolic 64–78
[2016-12-21] MEDS: FREE WATER GT SCH ×6 (02:00→22:28)
[2016-12-21 04:14] LABS: Basophils # (auto) 0 uL; Eosinophils # (auto) 0 uL; Hematocrit 29.6 % (41.0-53.0); Lymphocytes # (auto) 0.6 uL; Mean Corpuscular Hemoglobin 30.2 pg (28.0-32.0); Platelet Count (auto) 54 10^3/uL (140-450)
[2016-12-21 04:18] LABS: Basophils % (auto) 0.4 % (0.0-2.0); Eosinophils % (auto) 0.9 % (0.0-7.0); Lymphocytes % (auto) 13.6 % (10.0-50.0); Mean Corpuscular Hgb Conc. 33.9 g/dL (32.0-36.0); Mean Platelet Volume 10.4 fL (6.9-10.8); Monocytes # (auto) 0.4 uL; Monocytes % (auto) 7.8 % (0.0-12.0); Neutrophils # (auto) 3.6 uL; Neutrophils % (auto) 77.3 % (37.0-80.0); Nucleated Red Blood Cells % 0.3 %; Red Cell Distribution Width 16.6 % (11.8-14.3); White Blood Cell 4.7 10^3/uL (4.4-10.8)
[2016-12-21 04:27] LABS: Calcium 7.5 mg/dL (8.5-10.1); Potassium 4.1 mmol/L (3.5-5.1)
[2016-12-21 04:29] LABS: BUN/Creatinine Ratio 57.5
[2016-12-21] MEDS: InsuLIN REG 1unit/0.01ml Soln (100units/ml) SC SCH ×3 (06:00→17:35)
[2016-12-21] MEDS: ACCU-CHEK COMFORT CURVE STRIP VI SCH ×3 (06:14→17:35)
[2016-12-21] MEDS: FLUCONAZOLE 200MG/100ML 100 ML IV SCH (09:58)
[2016-12-21] MEDS: PRO-STAT 64 30ML GT SCH (09:58)
[2016-12-21] MEDS: POTASSIUM CHL 10% (20 MEQ/15ML) 15ml ORAL SOLN GT SCH (09:59)
[2016-12-21] MEDS: PANTOPRAZOLE 40 MG/10 ML VIAL IV SCH ×2 (09:59→22:00)
[2016-12-21] MEDS: FUROSEMIDE 40 MG TAB PO SCH (09:59)
[2016-12-21] MEDS: SODIUM CHLOR 0.9% PF (SALINE LOCK) 10ML VIAL IV SCH ×2 (09:59→22:28)
[2016-12-21] MEDS: FLORASTOR (S. BOULARDII) 250 MG CAP PO SCH ×2 (09:59→22:28)
[2016-12-22] VITALS (38 sets, daily range): BP systolic 118–132; BP diastolic 58–94
[2016-12-22] MEDS: FREE WATER GT SCH ×6 (02:00→22:42)
[2016-12-22] MEDS: InsuLIN REG 1unit/0.01ml Soln (100units/ml) SC SCH ×4 (06:00→17:43)
[2016-12-22] MEDS: ACCU-CHEK COMFORT CURVE STRIP VI SCH ×4 (06:00→17:43)
[2016-12-22 07:40] LABS: Allen Test Modified; Base Excess -6.3 mmol/L (-2.0-2.0); Blood 02Sat 97.9 % (96-100); Blood COHb 1.1 % (0.5-1.5); Blood MetHb 0.2 % (0.0-1.5); HCO3 17.7 mmol/L (22-26.0); HHb 2.1 % (0.0-5.0); MODE VENT - A/C; O2Hb 96.6 % (94.0-97.0); PCO2 31.3 mmHg (35.0-45.0); PCO2(T) 31.3 mmHg (35.0-45.0); PO2 113.9 mmHg (80.0-100.0); PO2(T) 113.9 mmHg (80.0-100.0); Sample Type Arterial; pH 7.371 (7.350-7.450)
[2016-12-22] MEDS: PRO-STAT 64 30ML GT SCH (10:00)
[2016-12-22] MEDS: PANTOPRAZOLE 40 MG/10 ML VIAL IV SCH ×2 (10:00→22:41)
[2016-12-22] MEDS: SODIUM CHLOR 0.9% PF (SALINE LOCK) 10ML VIAL IV SCH ×2 (10:00→22:41)
[2016-12-22] MEDS: FLUCONAZOLE 200MG/100ML 100 ML IV SCH (10:00)
[2016-12-22] MEDS: FLORASTOR (S. BOULARDII) 250 MG CAP PO SCH ×2 (10:00→22:41)
[2016-12-22] MEDS: POTASSIUM CHL 10% (20 MEQ/15ML) 15ml ORAL SOLN GT SCH (10:00)
[2016-12-22] MEDS: FUROSEMIDE 40 MG TAB PO SCH (10:00)
[2016-12-23] VITALS (63 sets, daily range): BP systolic 115–154; BP diastolic 62–79
[2016-12-23] MEDS: ACCU-CHEK COMFORT CURVE STRIP VI SCH ×4 (00:15→18:00)
[2016-12-23] MEDS: InsuLIN REG 1unit/0.01ml Soln (100units/ml) SC SCH ×4 (00:19→18:05)
[2016-12-23] MEDS: FREE WATER GT SCH ×6 (02:29→21:59)
[2016-12-23 03:43] LABS: Basophils # (auto) 0 uL; Eosinophils # (auto) 0.1 uL; Lymphocytes # (auto) 0.7 uL; Mean Corpuscular Volume 89.9 fL (80.0-100.0); Mean Platelet Volume 9.9 fL (6.9-10.8); Monocytes # (auto) 0.3 uL; Platelet Count (auto) 59 10^3/uL (140-450)
[2016-12-23 03:46] LABS: Basophils % (auto) 0.7 % (0.0-2.0); Eosinophils % (auto) 2.4 % (0.0-7.0); Hematocrit 26.7 % (41.0-53.0); Hemoglobin 9.2 g/dL (13.5-17.5); Lymphocytes % (auto) 18.2 % (10.0-50.0); Mean Corpuscular Hemoglobin 30.8 pg (28.0-32.0); Mean Corpuscular Hgb Conc. 34.3 g/dL (32.0-36.0); Neutrophils # (auto) 2.8 uL; Neutrophils % (auto) 71.7 % (37.0-80.0); Red Cell Distribution Width 17.2 % (11.8-14.3); White Blood Cell 3.9 10^3/uL (4.4-10.8)
[2016-12-23 04:04] LABS: Calcium 7.3 mg/dL (8.5-10.1); Potassium 4.1 mmol/L (3.5-5.1)
[2016-12-23 04:06] LABS: BUN/Creatinine Ratio 54.2
[2016-12-23] MEDS: PRO-STAT 64 30ML GT SCH (09:54)
[2016-12-23] MEDS: FLUCONAZOLE 200MG/100ML 100 ML IV SCH (09:59)
[2016-12-23] MEDS: FUROSEMIDE 40 MG TAB PO SCH (10:00)
[2016-12-23] MEDS: PANTOPRAZOLE 40 MG/10 ML VIAL IV SCH ×2 (10:00→21:58)
[2016-12-23] MEDS: FLORASTOR (S. BOULARDII) 250 MG CAP PO SCH (10:00)
[2016-12-23] MEDS: SODIUM CHLOR 0.9% PF (SALINE LOCK) 10ML VIAL IV SCH ×2 (10:00→21:59)
[2016-12-23] MEDS: POTASSIUM CHL 10% (20 MEQ/15ML) 15ml ORAL SOLN GT SCH (10:01)
[2016-12-24] VITALS (10 sets, daily range): BP systolic 100–132; BP diastolic 54–74
[2016-12-24] MEDS: FREE WATER GT SCH ×6 (02:00→22:04)
[2016-12-24] MEDS: ACCU-CHEK COMFORT CURVE STRIP VI SCH ×4 (06:00→18:05)
[2016-12-24] MEDS: InsuLIN REG 1unit/0.01ml Soln (100units/ml) SC SCH ×4 (06:00→18:05)
[2016-12-24] MEDS: PRO-STAT 64 30ML GT SCH (10:00)
[2016-12-24] MEDS: PANTOPRAZOLE 40 MG/10 ML VIAL IV SCH ×2 (10:28→21:52)
[2016-12-24] MEDS: FLUCONAZOLE 200MG/100ML 100 ML IV SCH (10:28)
[2016-12-24] MEDS: SODIUM CHLOR 0.9% PF (SALINE LOCK) 10ML VIAL IV SCH ×2 (10:29→21:52)
[2016-12-25] VITALS (48 sets, daily range): BP systolic 97–160; BP diastolic 52–99
[2016-12-25] MEDS: ACCU-CHEK COMFORT CURVE STRIP VI SCH ×4 (00:12→17:54)
[2016-12-25] MEDS: InsuLIN REG 1unit/0.01ml Soln (100units/ml) SC SCH ×4 (00:12→17:53)
[2016-12-25] MEDS: FREE WATER GT SCH ×6 (02:00→21:36)
[2016-12-25 07:09] LABS: Hematocrit 33.4 % (41.0-53.0); Hemoglobin 10.7 g/dL (13.5-17.5); Mean Corpuscular Hgb Conc. 31.9 g/dL (32.0-36.0); Mean Corpuscular Volume 93.8 fL (80.0-100.0); Mean Platelet Volume 10.5 fL (6.9-10.8); Platelet Count (auto) 100 10^3/uL (140-450); Red Cell Distribution Width 17.7 % (11.8-14.3); White Blood Cell 9.9 10^3/uL (4.4-10.8)
[2016-12-25 07:14] LABS: Metamyelocytes % 0; Myelocytes % 0; Promyelocytes % 0; Reactive Lymphocytes 0
[2016-12-25 07:47] LABS: Albumin 1.8 g/dL (3.4-5.0); BUN/Creatinine Ratio 49.2; Bilirubin, Total 0.4 mg/dL (0.2-1.0); Calcium 7.7 mg/dL (8.5-10.1); Magnesium 2.6 mg/dL (1.6-2.6); Potassium 4.1 mmol/L (3.5-5.1); Total Protein 5.9 g/dL (6.4-8.2)
[2016-12-25 08:37] LABS: Allen Test Yes; Base Excess -8.7 mmol/L (-2.0-2.0); Blood 02Sat 98.7 % (96-100); Blood COHb 0.3 % (0.5-1.5); Blood MetHb 0.4 % (0.0-1.5); HCO3 18.8 mmol/L (22-26.0); HHb 1.3 % (0.0-5.0); MODE VENT - A/C; PCO2 47.2 mmHg (35.0-45.0); PCO2(T) 47.2 mmHg (35.0-45.0); PO2 365.3 mmHg (80.0-100.0); PO2(T) 365.3 mmHg (80.0-100.0); Room 0262D; Sample Type Arterial; pH 7.218 (7.350-7.450)
[2016-12-25] MEDS ORDERED: VITAMINS A & D (TOPICAL) OINT 5GM TOP ONE (09:10)
[2016-12-25] MEDS: PANTOPRAZOLE 40 MG/10 ML VIAL IV SCH ×2 (09:54→21:35)
[2016-12-25] MEDS: SODIUM CHLOR 0.9% PF (SALINE LOCK) 10ML VIAL IV SCH ×2 (09:54→21:35)
[2016-12-25 09:58] LABS: Giant Platelets Few; Large Platelets FEW; Ovalocytes FEW; Platelet Estimate Decreased; Tear Drop Cells FEW
[2016-12-25] MEDS: PRO-STAT 64 30ML GT SCH (10:00)
[2016-12-25] MEDS ORDERED: BUMETANIDE (0.25MG/ML) 4 ML VIAL IV ONE (11:00)
[2016-12-26] VITALS (68 sets, daily range): BP systolic 114–131; BP diastolic 59–90
[2016-12-26] MEDS: InsuLIN REG 1unit/0.01ml Soln (100units/ml) SC SCH ×4 (00:02→17:57)
[2016-12-26] MEDS: ACCU-CHEK COMFORT CURVE STRIP VI SCH ×4 (00:02→17:47)
[2016-12-26 01:44] LABS: Allen Test Yes; Base Excess -4.1 mmol/L (-2.0-2.0); Blood 02Sat 96.3 % (96-100); Blood COHb 0.3 % (0.5-1.5); Blood MetHb 0.1 % (0.0-1.5); HCO3 20.5 mmol/L (22-26.0); HHb 3.7 % (0.0-5.0); MODE VENT - A/C; O2Hb 95.9 % (94.0-97.0); PCO2 35.6 mmHg (35.0-45.0); PCO2(T) 35.6 mmHg (35.0-45.0); PO2 91.6 mmHg (80.0-100.0); PO2(T) 91.6 mmHg (80.0-100.0); Room 0262D; Sample Type Arterial; pH 7.378 (7.350-7.450)
[2016-12-26] MEDS: FREE WATER GT SCH ×4 (02:00→22:00)
[2016-12-26 05:15] LABS: Basophils # (auto) 0 uL; Basophils % (auto) 0.4 % (0.0-2.0); Eosinophils # (auto) 0 uL; Eosinophils % (auto) 1.1 % (0.0-7.0); Hematocrit 26.1 % (41.0-53.0); Hemoglobin 8.8 g/dL (13.5-17.5); Lymphocytes # (auto) 0.6 uL; Lymphocytes % (auto) 13.1 % (10.0-50.0); Mean Corpuscular Hemoglobin 30.4 pg (28.0-32.0); Mean Corpuscular Hgb Conc. 33.6 g/dL (32.0-36.0); Mean Corpuscular Volume 90.6 fL (80.0-100.0); Mean Platelet Volume 10.7 fL (6.9-10.8); Monocytes # (auto) 0.3 uL; Monocytes % (auto) 6.2 % (0.0-12.0); Neutrophils # (auto) 3.5 uL; Neutrophils % (auto) 79.2 % (37.0-80.0); Nucleated Red Blood Cells % 0.2 %; Platelet Count (auto) 73 10^3/uL (140-450); Red Cell Distribution Width 16.9 % (11.8-14.3); White Blood Cell 4.5 10^3/uL (4.4-10.8)
[2016-12-26 05:45] LABS: BUN/Creatinine Ratio 52.5; Calcium 7.5 mg/dL (8.5-10.1); Magnesium 2.5 mg/dL (1.6-2.6); Phosphorus 2.2 mg/dL (2.5-4.90); Potassium 4.3 mmol/L (3.5-5.1)
[2016-12-26] MEDS: PRO-STAT 64 30ML GT SCH ×2 (10:00→12:45)
[2016-12-26] MEDS: PANTOPRAZOLE 40 MG/10 ML VIAL IV SCH ×2 (10:11→22:00)
[2016-12-26] MEDS: SODIUM CHLOR 0.9% PF (SALINE LOCK) 10ML VIAL IV SCH ×2 (10:12→22:00)
[2016-12-27] VITALS (40 sets, daily range): BP systolic 122–138; BP diastolic 58–83
[2016-12-27] MEDS: ACCU-CHEK COMFORT CURVE STRIP VI SCH ×3 (00:07→11:34)
[2016-12-27] MEDS: InsuLIN REG 1unit/0.01ml Soln (100units/ml) SC SCH ×3 (00:07→11:35)
[2016-12-27 05:29] LABS: Basophils # (auto) 0 uL; Basophils % (auto) 0.5 % (0.0-2.0); Eosinophils # (auto) 0.1 uL; Eosinophils % (auto) 1.2 % (0.0-7.0); Hematocrit 26.9 % (41.0-53.0); Hemoglobin 8.9 g/dL (13.5-17.5); Lymphocytes # (auto) 0.8 uL; Lymphocytes % (auto) 11.2 % (10.0-50.0); Mean Corpuscular Hemoglobin 29.9 pg (28.0-32.0); Mean Corpuscular Hgb Conc. 32.9 g/dL (32.0-36.0); Mean Corpuscular Volume 90.9 fL (80.0-100.0); Mean Platelet Volume 10.6 fL (6.9-10.8); Monocytes # (auto) 0.3 uL; Neutrophils # (auto) 5.5 uL; Neutrophils % (auto) 82.1 % (37.0-80.0); Nucleated Red Blood Cells % 0.1 %; Platelet Count (auto) 83 10^3/uL (140-450); Red Cell Distribution Width 16.8 % (11.8-14.3); White Blood Cell 6.7 10^3/uL (4.4-10.8)
[2016-12-27 05:47] LABS: Calcium 7.6 mg/dL (8.5-10.1); Magnesium 2.6 mg/dL (1.6-2.6); Phosphorus 2.2 mg/dL (2.5-4.90); Potassium 4.2 mmol/L (3.5-5.1)
[2016-12-27] MEDS: FREE WATER GT SCH (06:04)
[2016-12-27] MEDS: PANTOPRAZOLE 40 MG/10 ML VIAL IV SCH (10:09)
[2016-12-27] MEDS: PRO-STAT 64 30ML GT SCH (10:09)
[2016-12-27] MEDS: SODIUM CHLOR 0.9% PF (SALINE LOCK) 10ML VIAL IV SCH (10:09)
[2016-12-27] MEDS ORDERED: ENOXAPARIN SOD 30 MG/0.3 ML SYRINGE SC ONE (10:30)
[2016-12-27] MEDS ORDERED: NITROGLYCERIN 0.4 MG SL TAB SL PRN (10:30)
[2016-12-27] MEDS ORDERED: DEXTROSE (50%) 50ML SYRG IV PRN (10:30)
[2016-12-27] MEDS ORDERED: LORazepam 2MG/ML-1ML VIAL IV PRN (10:30)
[2016-12-27] MEDS ORDERED: MORPHINE SULFATE 10 MG/ML INJ 1ML SDV IV PRN (10:30)
[2016-12-28] MEDS ORDERED: ENOXAPARIN SOD 30 MG/0.3 ML SYRINGE SC SCH (10:00)
== END 2016-12-27 13:45 | DRG 4 ==
LOC: ER 07:15 → EDBD 07:15 → TELE 07:16 → ICU WEST 12:05 → DOU IN ICU 12-17 18:48 → ICU WEST 12-18 23:09 → DOU IN ICU 12-23 17:00
PROVIDERS: ADMIT Internal Medicine; ATTEND Internal Medicine
PROC: 5A1955Z Respiratory Ventilation, Greater than 96 Consecutive Hours (ICD-10-PCS; principal; 2016-11-19)
PROC: 30233L1 Transfusion of Nonautologous Fresh Plasma into Peripheral Vein, Percutaneous Approach (ICD-10-PCS; 2016-11-19)
PROC: 30233N1 Transfusion of Nonautologous Red Blood Cells into Peripheral Vein, Percutaneous Approach (ICD-10-PCS; 2016-11-19)
PROC: 30233R1 Transfusion of Nonautologous Platelets into Peripheral Vein, Percutaneous Approach (ICD-10-PCS; 2016-11-19)
PROC: 30233K1 Transfusion of Nonautologous Frozen Plasma into Peripheral Vein, Percutaneous Approach (ICD-10-PCS; 2016-11-19)
PROC: 0BH17EZ Insertion of Endotracheal Airway into Trachea, Via Natural or Artificial Opening (ICD-10-PCS; 2016-11-19)
PROC: 02HV33Z Insertion of Infusion Device into Superior Vena Cava, Percutaneous Approach (ICD-10-PCS; 2016-11-19)
PROC: 03H733Z Insertion of Infusion Device into Right Brachial Artery, Percutaneous Approach (ICD-10-PCS; 2016-11-19)
PROC: 0DJD8ZZ Inspection of Lower Intestinal Tract, Via Natural or Artificial Opening Endoscopic (ICD-10-PCS; 2016-11-22)
PROC: 02H633Z Insertion of Infusion Device into Right Atrium, Percutaneous Approach (ICD-10-PCS; 2016-12-08)
PROC: 0DH63UZ Insertion of Feeding Device into Stomach, Percutaneous Approach (ICD-10-PCS; 2016-12-09)
PROC: 0B110F4 Bypass Trachea to Cutaneous with Tracheostomy Device, Open Approach (ICD-10-PCS; 2016-12-09 09:06)
DX: A41.81 Sepsis due to Enterococcus (principal); N17.0 Acute kidney failure with tubular necrosis; R65.21 Severe sepsis with septic shock; E43 Unspecified severe protein-calorie malnutrition; J15.1 Pneumonia due to Pseudomonas; L89.154 Pressure ulcer of sacral region, stage 4; L89.103 Pressure ulcer of unspecified part of back, stage 3; I50.43 Acute on chronic combined systolic (congestive) and diastolic (congestive) heart failure; K25.4 Chronic or unspecified gastric ulcer with hemorrhage; D68.9 Coagulation defect, unspecified; J96.02 Acute respiratory failure with hypercapnia; I46.9 Cardiac arrest, cause unspecified; K29.71 Gastritis, unspecified, with bleeding; D62 Acute posthemorrhagic anemia; E87.0 Hyperosmolality and hypernatremia; I13.0 Hypertensive heart and chronic kidney disease with heart failure and stage 1 through stage 4 chronic kidney disease, or unspecified chronic kidney disease; I42.9 Cardiomyopathy, unspecified; K62.6 Ulcer of anus and rectum; B37.49 Other urogenital candidiasis; Z99.11 Dependence on respirator [ventilator] status; N18.5 Chronic kidney disease, stage 5; E11.21 Type 2 diabetes mellitus with diabetic nephropathy; D69.6 Thrombocytopenia, unspecified; E11.22 Type 2 diabetes mellitus with diabetic chronic kidney disease; I25.10 Atherosclerotic heart disease of native coronary artery without angina pectoris; F43.10 Post-traumatic stress disorder, unspecified; E87.6 Hypokalemia; K63.5 Polyp of colon; Z16.24 Resistance to multiple antibiotics; J45.909 Unspecified asthma, uncomplicated; K62.89 Other specified diseases of anus and rectum; R62.59 Other lack of expected normal physiological development in childhood; Z77.090 Contact with and (suspected) exposure to asbestos; L89.620 Pressure ulcer of left heel, unstageable; L89.890 Pressure ulcer of other site, unstageable; L89.610 Pressure ulcer of right heel, unstageable; I25.2 Old myocardial infarction; I69.320 Aphasia following cerebral infarction; Z68.20 Body mass index [BMI] 20.0-20.9, adult; Z82.49 Family history of ischemic heart disease and other diseases of the circulatory system; Z86.14 Personal history of Methicillin resistant Staphylococcus aureus infection; Z79.82 Long term (current) use of aspirin; Z68.22 Body mass index [BMI] 22.0-22.9, adult; Z79.4 Long term (current) use of insulin; Z79.899 Other long term (current) drug therapy
CPT/HCPCS: 31500; 36415; 36556; 36569; 36600; 36620; 43246; 45378; 51702; 71010; 74176; 80048; 80053; 80061; 81001; 82040; 82150; 82270; 82378; 82570; 82805; 82947; 82962; 83036; 83605; 83690; 83735; 83880; 84100; 84132; 84300; 84484; 85007; 85014; 85018; 85025; 85027; 85045; 85379; 85610; 85652; 85730; 86141; 86850; 86900; 86901; 86920; 87040; 87070; 87077; 87081; 87086; 87186; 87205; 87493; 93005; 93971; 94002; 94003; 94640; 96374; 97110; 97163; 99291; A4565; C9113; J0330; J0461; J0690; J0696; J1450; J1815; J1956; J2250; J2543; J3480; J3490; J7042; J7060